=== PATIENT | male | born 1940 | race Caucasian/White ===

== ENCOUNTER → 2017-03-29 | Outpatient (REF) | payer MEDICARE, BC ==
[2017-03-29 12:56] LABS: BASO # 0.1 K/mm3 (0.0-0.2); BASO % 0.7 % (0.0-1.0); EOS # 0.2 K/mm3 (0.0-0.50); EOS % 2.1 % (0.0-3.0); LARGE UNSTAINED CELL # 0.1 K/mm3 (0.0-0.4); LARGE UNSTAINED CELL % 0.9 % (0.0-4.0); LYMPH # 1.2 K/mm3 (1.5-4.5); LYMPH % 11.7 % (24.0-44.0); MEAN CORPUSCULAR HEMOGLOBIN 32.1 pg (27.0-33.0); MEAN CORPUSCULAR HGB CONC 32.8 g/dl (32.0-36.5); MEAN CORPUSCULAR VOLUME 97.8 fl (80.0-96.0); MONO # 0.9 K/mm3 (0.0-0.8); MONO % 8.9 % (0.0-5.0); NEUTROPHILS # 7.2 K/mm3 (1.8-7.7); NEUTROPHILS % 75.7 % (36.0-66.0); PLATELET COUNT, AUTOMATED 164 k/mm3 (150-450); RED CELL DISTRIBUTION WIDTH 14.4 % (11.5-14.5); WHITE BLOOD COUNT 9.5 K/mm3 (4.0-10.0)
[2017-03-29 13:16] LABS: ALBUMIN 3.6 GM/DL (3.2-5.2); ALBUMIN/GLOBULIN RATIO 1.16 (1.00-1.93); BILIRUBIN,TOTAL 0.9 MG/DL (0.2-1.0); CALCIUM LEVEL 8.9 MG/DL (8.8-10.2); CREATININE FOR GFR 1.29 MG/DL (0.70-1.30); FREE T4 1.19 NG/DL (0.76-1.46); GLOMERULAR FILTRATION RATE 57.2 (>42); POTASSIUM SERUM 4.1 MEQ/L (3.5-5.1); TOTAL PROTEIN 6.7 GM/DL (6.4-8.2)
== END ==
LOC: M SFHCADAM 08:25
PROVIDERS: ATTEND Family Medicine
DX: I48.91 Unspecified atrial fibrillation (principal); E66.01 Morbid (severe) obesity due to excess calories

== ENCOUNTER → 2017-04-28 | Outpatient (CLI) | payer MEDICARE, BC ==
--- NOTE | 2017-04-30 18:38 | ECHO ---
DATE OF PROCEDURE: 04/28/2017 REFERRING INDIVIDUAL: Dr. Malika Nunez INDICATION: Heart murmur. HEIGHT: 178 cm WEIGHT: 127.8 kg 2D MEASUREMENTS: Aortic root 3.4 cm Left atrium 4.8 cm Ventricular septum 1.09 cm Posterior wall 1.15 cm Left ventricle diastole 5.2 cm LVOT 2.7 cm Inferior vena cava 1.4 cm DOPPLER MEASUREMENTS: Mild aortic regurgitation. Aortic valve velocity 383 cm/s Aortic valve VTI 91.0 cm Peak aortic valve gradient 39 mmHg Mean aortic valve gradient 37 mmHg Aortic valve area (VTI, continuity equation) 0.68 cm2 Aortic stenosis dimensionless index 0.22 LVOT velocity 73.7 cm/s LVOT/VTI 19.6 cm Very mild mitral regurgitation. No mitral stenosis. Mild tricuspid regurgitation. Estimated right ventricle systolic pressure 42 mmHg assuming a right atrial pressure of 5 mmHg. DESCRIPTION: Rhythm was atrial fibrillation with controlled ventricular response. This is a moderately technically difficult echocardiogram. This is a 2D, M-mode, color flow Doppler and pulsed wave Doppler examination including mitral annular tissue Doppler. No pericardial effusion. CONCLUSIONS: 1. Degenerative, calcific aortic valve disease with severe focal thickening and focal calcific deposits. Moderate reduction in mobility of the aortic cusps. Severe aortic valve stenosis with peak aortic valve velocity of 383 cm/s, mean aortic valve gradient of 37 mmHg, aortic valve area of 0.68 cm2 (continuity equation, VTI) and aortic stenosis dimensionless index of 0.22. Mild aortic regurgitation. 2. Normal left ventricle internal dimensions and wall thickness. Normal regional LV wall motion and wall thickening. Normal LV systolic function. Unable to assess LV diastolic function in the setting of atrial fibrillation. 3. Suggestive of moderate elevation of estimated right ventricle systolic pressure. 4. Moderate left atrial dilatation. 5. Moderate mitral annular calcification. No mitral stenosis. Very mild mitral regurgitation. 6. Moderately technically difficult echocardiogram. ADDITIONAL COMMENTS AND RECOMMENDATIONS: If this patient has symptoms attributable to severe aortic valve stenosis then suggest aortic valve replacement. If patient is asymptomatic with regards to aortic stenosis then recommend close clinical surveillance with a followup echocardiogram Doppler study in one year.
== END ==
LOC: M CARPUL 09:32
PROVIDERS: ATTEND Family Medicine
DX: R01.1 Cardiac murmur, unspecified (principal)

== ENCOUNTER 2017-07-03 17:06 | Emergency (ER) | payer MEDICARE, BC ==
[~2017-07-03] VITALS: Ht 177.8 cm; Wt 130.9 kg
[2017-07-03] MEDS ORDERED: LISI10TA4 PO (17:38)
[2017-07-03] MEDS ORDERED: ALLO100T PO (17:38)
[2017-07-03] MEDS ORDERED: ASPI81TA85 PO (17:38)
[2017-07-03] MEDS ORDERED: SIMV20TA2 PO (17:38)
[2017-07-03] MEDS ORDERED: TORS10TA3 PO (17:38)
[2017-07-03 20:07] VITALS: BP 141/71
== END 2017-07-03 20:17 | disposition home or self-care (01) ==
LOC: EDBD 17:06 → M ED 17:06
DX: T69.9XXA Effect of reduced temperature, unspecified, initial encounter (principal); W01.0XXA Fall on same level from slipping, tripping and stumbling without subsequent striking against object, initial encounter; Y92.9 Unspecified place or not applicable; Y93.9 Activity, unspecified; Y99.9 Unspecified external cause status; I51.9 Heart disease, unspecified; E11.9 Type 2 diabetes mellitus without complications; I10 Essential (primary) hypertension; Z79.82 Long term (current) use of aspirin; Z79.899 Other long term (current) drug therapy

== ENCOUNTER 2017-08-29 10:05 | Emergency (ER) | payer MEDICARE, BC ==
[2017-08-29 11:20] LABS: HEMATOCRIT 45.1 % (42.0-52.0); HEMOGLOBIN 14.8 g/dl (14.0-18.0); MEAN CORPUSCULAR HEMOGLOBIN 29.7 pg (27.0-33.0); MEAN CORPUSCULAR HGB CONC 32.8 g/dl (32.0-36.5); MEAN CORPUSCULAR VOLUME 90.6 fl (80.0-96.0); PLATELET COUNT, AUTOMATED 186 10^3/uL (150-450); RED BLOOD COUNT 4.98 10^6/uL (4.30-6.10)
[2017-08-29 11:45] LABS: ANION GAP 6 MEQ/L (8-16); BLOOD UREA NITROGEN 25 MG/DL (7-18); CALCIUM LEVEL 8.5 MG/DL (8.8-10.2); CARBON DIOXIDE LEVEL 32 MEQ/L (21-32); CHLORIDE LEVEL 101 MEQ/L (98-107); CREATININE FOR GFR 1.46 MG/DL (0.70-1.30); GLOMERULAR FILTRATION RATE 49.6 (>42); GLUCOSE, FASTING 110 MG/DL (70-100); NT-PRO BNP 1512 PG/ML (<450); POTASSIUM SERUM 4.4 MEQ/L (3.5-5.1); SODIUM LEVEL 139 MEQ/L (136-145)
== END 2017-08-29 14:18 | disposition home or self-care (01) ==
LOC: M ED 10:05
DX: S80.01XA Contusion of right knee, initial encounter (principal); S80.02XA Contusion of left knee, initial encounter; I35.0 Nonrheumatic aortic (valve) stenosis; Z91.81 History of falling; W19.XXXA Unspecified fall, initial encounter; Y92.9 Unspecified place or not applicable; Y93.9 Activity, unspecified; I51.7 Cardiomegaly; I48.91 Unspecified atrial fibrillation; I10 Essential (primary) hypertension; R60.9 Edema, unspecified; Z87.891 Personal history of nicotine dependence; Z79.82 Long term (current) use of aspirin; Z79.899 Other long term (current) drug therapy
CPT/HCPCS: 71046

== ENCOUNTER 2017-09-21 14:48 | Inpatient (IN) | payer MEDICARE, BC ==
[2017-09-21] MEDS ORDERED: VARIBAR PUDDING 40% w/v 230ML TUBE As Ordered (14:54)
[2017-09-21] MEDS ORDERED: VARIBAR NECTAR 40% w/v 240ML SUSP BTL As Ordered (14:54)
[2017-09-21] MEDS ORDERED: E-Z-PAQUE 96% w/w SUSP 176GM BTL As Ordered (14:55)
[2017-09-21 15:08] LABS: BASO # 0.1 10^3/uL (0.0-0.2); BASO % 0.4 % (0.0-1.0); EOS # 0.1 10^3/uL (0.0-0.50); EOS % 0.7 % (0.0-3.0); HEMATOCRIT 48.1 % (42.0-52.0); HEMOGLOBIN 16.1 g/dl (14.0-18.0); IMMATURE GRANULOCYTE % 0.3 % (0-3.0); LYMPH % 8.2 % (24.0-44.0); MEAN CORPUSCULAR HGB CONC 33.5 g/dl (32.0-36.5); MEAN CORPUSCULAR VOLUME 89.6 fl (80.0-96.0); MONO # 0.6 10^3/uL (0.0-0.8); MONO % 5.3 % (0.0-5.0); NEUTROPHILS % 85.1 % (36.0-66.0); PLATELET COUNT, AUTOMATED 202 10^3/uL (150-450); RED BLOOD COUNT 5.37 10^6/uL (4.30-6.10); RED CELL DISTRIBUTION WIDTH 12.9 % (11.5-14.5); WHITE BLOOD COUNT 11.8 10^3/uL (4.0-10.0)
[2017-09-21 15:37] LABS: ALBUMIN 3.6 GM/DL (3.2-5.2); ALBUMIN/GLOBULIN RATIO 0.97 (1.00-1.93); ALKALINE PHOSPHATASE 104 U/L (45-117); ALT/SGPT 19 U/L (12-78); ANION GAP 11 MEQ/L (8-16); AST/SGOT 16 U/L (7-37); BILIRUBIN,TOTAL 0.6 MG/DL (0.2-1.0); BLOOD UREA NITROGEN 28 MG/DL (7-18); CALCIUM LEVEL 8.7 MG/DL (8.8-10.2); CARBON DIOXIDE LEVEL 25 MEQ/L (21-32); CHLORIDE LEVEL 102 MEQ/L (98-107); CPK CREATINE PHOSPHOKINASE 68 U/L (39-308); CREATININE FOR GFR 1.59 MG/DL (0.70-1.30); GLOMERULAR FILTRATION RATE 44.9 (>42); GLUCOSE, FASTING 140 MG/DL (70-100); SODIUM LEVEL 138 MEQ/L (136-145); TOTAL PROTEIN 7.3 GM/DL (6.4-8.2); TROPONIN I < 0.02 NG/ML (< 0.10)
[2017-09-21 15:38] LABS: CK-MB VALUE MASS 1.9 NG/ML (0.0-3.6); MB/CK RELATIVE INDEX 2.79 (< OR =4); NT-PRO BNP 1347 PG/ML (<450)
[2017-09-21] MEDS: D5W/0.45% SODIUM CHLORIDE 1,000 ML IV (17:05)
[2017-09-21 21:00] LABS: CK-MB VALUE MASS 1.5 NG/ML (0.0-3.6); CPK CREATINE PHOSPHOKINASE 65 U/L (39-308); TROPONIN I < 0.02 NG/ML (< 0.10)
[2017-09-22 05:02] LABS: HEMATOCRIT 44.3 % (42.0-52.0); HEMOGLOBIN 14.7 g/dl (14.0-18.0); MEAN CORPUSCULAR HEMOGLOBIN 29.9 pg (27.0-33.0); MEAN CORPUSCULAR HGB CONC 33.2 g/dl (32.0-36.5); MEAN CORPUSCULAR VOLUME 90.2 fl (80.0-96.0); PLATELET COUNT, AUTOMATED 175 10^3/uL (150-450); RED BLOOD COUNT 4.91 10^6/uL (4.30-6.10); RED CELL DISTRIBUTION WIDTH 12.9 % (11.5-14.5); WHITE BLOOD COUNT 12.3 10^3/uL (4.0-10.0)
[2017-09-22 05:21] LABS: CPK CREATINE PHOSPHOKINASE 48 U/L (39-308); MB/CK RELATIVE INDEX 2.08 (< OR =4); TROPONIN I < 0.02 NG/ML (< 0.10)
[2017-09-22 05:22] LABS: ALBUMIN 3.1 GM/DL (3.2-5.2); ALBUMIN/GLOBULIN RATIO 0.91 (1.00-1.93); ALKALINE PHOSPHATASE 91 U/L (45-117); ALT/SGPT 16 U/L (12-78); ANION GAP 8 MEQ/L (8-16); AST/SGOT 14 U/L (7-37); BILIRUBIN,TOTAL 0.8 MG/DL (0.2-1.0); BLOOD UREA NITROGEN 27 MG/DL (7-18); CALCIUM LEVEL 8.4 MG/DL (8.8-10.2); CARBON DIOXIDE LEVEL 26 MEQ/L (21-32); CHLORIDE LEVEL 105 MEQ/L (98-107); CREATININE FOR GFR 1.32 MG/DL (0.70-1.30); GLOMERULAR FILTRATION RATE 55.7 (>42); GLUCOSE, FASTING 111 MG/DL (70-100); SODIUM LEVEL 139 MEQ/L (136-145); TOTAL PROTEIN 6.5 GM/DL (6.4-8.2)
[2017-09-22] MEDS: NYSTATIN 100,000 UNITS/GM TOPICAL PWD 15 GM TOP ×2 (09:52→21:00)
[2017-09-22] MEDS: ENOXAPARIN 30 MG/0.3 ML SYR (J1650) SC (10:19)
[2017-09-22] MEDS: ASPIRIN 81 MG ENTERIC TAB PO (10:20)
[2017-09-22] MEDS: FLUOCINONIDE 0.05% CREAM 15 GM TOP ×2 (10:20→21:00)
[2017-09-22] MEDS: ALLOPURINOL 100 MG TAB PO (10:20)
[2017-09-22] MEDS: INFLUENZA VIRUS VACCINE HIGH DOSE 0.5 ML SYRINGE (90662) IM (10:30)
[2017-09-22] MEDS: D5W/0.45% SODIUM CHLORIDE 1,000 ML IV (12:03)
[2017-09-22 13:11] LABS: TROPONIN I < 0.02 NG/ML (< 0.10)
[2017-09-22 13:12] LABS: CK-MB VALUE MASS 1.4 NG/ML (0.0-3.6); CPK CREATINE PHOSPHOKINASE 47 U/L (39-308); MB/CK RELATIVE INDEX 2.97 (< OR =4)
[2017-09-22] MEDS ORDERED: PILL CUTTER/CRUSHER XX (18:15)
[2017-09-22] MEDS: SINEMET 25-100 MG TAB PO (18:32)
[2017-09-22] MEDS: ATORVASTATIN 20 MG TAB PO (21:00)
[2017-09-23 05:35] LABS: HEMATOCRIT 42.5 % (42.0-52.0); HEMOGLOBIN 13.9 g/dl (14.0-18.0); MEAN CORPUSCULAR HEMOGLOBIN 29.5 pg (27.0-33.0); MEAN CORPUSCULAR HGB CONC 32.7 g/dl (32.0-36.5); MEAN CORPUSCULAR VOLUME 90.2 fl (80.0-96.0); PLATELET COUNT, AUTOMATED 161 10^3/uL (150-450); RED BLOOD COUNT 4.71 10^6/uL (4.30-6.10); RED CELL DISTRIBUTION WIDTH 12.9 % (11.5-14.5); WHITE BLOOD COUNT 7.3 10^3/uL (4.0-10.0)
[2017-09-23 05:50] LABS: ALBUMIN 2.9 GM/DL (3.2-5.2); ALBUMIN/GLOBULIN RATIO 0.81 (1.00-1.93); ALKALINE PHOSPHATASE 78 U/L (45-117); ALT/SGPT < 6 U/L (12-78); ANION GAP 7 MEQ/L (8-16); AST/SGOT 11 U/L (7-37); BILIRUBIN,TOTAL 0.8 MG/DL (0.2-1.0); BLOOD UREA NITROGEN 24 MG/DL (7-18); CALCIUM LEVEL 8.2 MG/DL (8.8-10.2); CARBON DIOXIDE LEVEL 27 MEQ/L (21-32); CHLORIDE LEVEL 107 MEQ/L (98-107); GLOMERULAR FILTRATION RATE > 60.0 (>42); GLUCOSE, FASTING 95 MG/DL (70-100); POTASSIUM SERUM 3.7 MEQ/L (3.5-5.1); SODIUM LEVEL 141 MEQ/L (136-145); TOTAL PROTEIN 6.5 GM/DL (6.4-8.2)
[2017-09-23] MEDS: D5W/0.45% SODIUM CHLORIDE 1,000 ML IV (09:15)
[2017-09-23] MEDS: SINEMET 25-100 MG TAB PO (09:28)
[2017-09-23] MEDS: ENOXAPARIN 30 MG/0.3 ML SYR (J1650) SC (09:28)
[2017-09-23] MEDS: ALLOPURINOL 100 MG TAB PO (09:28)
[2017-09-23] MEDS: ASPIRIN 81 MG ENTERIC TAB PO (09:28)
[2017-09-23] MEDS: FLUOCINONIDE 0.05% CREAM 15 GM TOP ×2 (09:29→20:48)
[2017-09-23] MEDS: NYSTATIN 100,000 UNITS/GM TOPICAL PWD 15 GM TOP ×2 (09:29→20:49)
[2017-09-23] MEDS: ROSUVASTATIN 10 MG TAB (CRESTOR) PO (18:17)
[2017-09-24] MEDS: D5W/0.45% SODIUM CHLORIDE 1,000 ML IV ×2 (04:04→14:23)
[2017-09-24 05:56] LABS: HEMATOCRIT 43.1 % (42.0-52.0); HEMOGLOBIN 14.2 g/dl (14.0-18.0); MEAN CORPUSCULAR HEMOGLOBIN 30.1 pg (27.0-33.0); MEAN CORPUSCULAR HGB CONC 32.9 g/dl (32.0-36.5); MEAN CORPUSCULAR VOLUME 91.3 fl (80.0-96.0); PLATELET COUNT, AUTOMATED 165 10^3/uL (150-450); RED BLOOD COUNT 4.72 10^6/uL (4.30-6.10); RED CELL DISTRIBUTION WIDTH 12.8 % (11.5-14.5)
[2017-09-24 06:32] LABS: ALBUMIN 2.9 GM/DL (3.2-5.2); ALBUMIN/GLOBULIN RATIO 0.78 (1.00-1.93); ALKALINE PHOSPHATASE 73 U/L (45-117); ALT/SGPT 7 U/L (12-78); ANION GAP 7 MEQ/L (8-16); AST/SGOT 11 U/L (7-37); BILIRUBIN,TOTAL 0.7 MG/DL (0.2-1.0); BLOOD UREA NITROGEN 19 MG/DL (7-18); CALCIUM LEVEL 8.3 MG/DL (8.8-10.2); CARBON DIOXIDE LEVEL 26 MEQ/L (21-32); CHLORIDE LEVEL 109 MEQ/L (98-107); CREATININE FOR GFR 1.16 MG/DL (0.70-1.30); FREE T4 1.03 NG/DL (0.76-1.46); GLOMERULAR FILTRATION RATE > 60.0 (>42); GLUCOSE, FASTING 97 MG/DL (70-100); MAGNESIUM LEVEL 1.9 MG/DL (1.8-2.4); POTASSIUM SERUM 3.7 MEQ/L (3.5-5.1); SODIUM LEVEL 142 MEQ/L (136-145); TOTAL PROTEIN 6.6 GM/DL (6.4-8.2); URIC ACID 8.1 MG/DL (3.5-7.2)
[2017-09-24] MEDS: ASPIRIN 81 MG CHEW TABLET PO (09:44)
[2017-09-24] MEDS: ROSUVASTATIN 10 MG TAB (CRESTOR) PO (09:44)
[2017-09-24] MEDS: FLUOCINONIDE 0.05% CREAM 15 GM TOP ×2 (09:44→21:23)
[2017-09-24] MEDS: ALLOPURINOL 100 MG TAB PO (09:44)
[2017-09-24] MEDS: SINEMET 25-100 MG TAB PO (09:44)
[2017-09-24] MEDS: NYSTATIN 100,000 UNITS/GM TOPICAL PWD 15 GM TOP ×2 (09:46→21:24)
[2017-09-24] MEDS ORDERED: fentaNYL 100 MCG/2 ML INJECTION (J3010) As Ordered (12:10)
[2017-09-24] MEDS ORDERED: PROPOFOL 200 MG/20 ML VIAL As Ordered (12:10)
[2017-09-24] MEDS ORDERED: LIDOCAINE 2% INJ 100 MG/5 ML SDV (FOR ANES.) As Ordered (12:10)
[2017-09-24] MEDS ORDERED: MIDAZOLAM INJ 2 MG/2 ML VIAL (J2250) As Ordered (12:11)
[2017-09-24] MEDS: ENOXAPARIN 30 MG/0.3 ML SYR (J1650) SC (14:22)
[2017-09-25 03:58] LABS: HEMATOCRIT 42.4 % (42.0-52.0); HEMOGLOBIN 14.1 g/dl (14.0-18.0); MEAN CORPUSCULAR HEMOGLOBIN 30.3 pg (27.0-33.0); MEAN CORPUSCULAR HGB CONC 33.3 g/dl (32.0-36.5); MEAN CORPUSCULAR VOLUME 91.2 fl (80.0-96.0); PLATELET COUNT, AUTOMATED 149 10^3/uL (150-450); RED BLOOD COUNT 4.65 10^6/uL (4.30-6.10); RED CELL DISTRIBUTION WIDTH 12.8 % (11.5-14.5); WHITE BLOOD COUNT 7.8 10^3/uL (4.0-10.0)
[2017-09-25 04:22] LABS: ALBUMIN/GLOBULIN RATIO 0.79 (1.00-1.93); ALKALINE PHOSPHATASE 73 U/L (45-117); ALT/SGPT 9 U/L (12-78); ANION GAP 8 MEQ/L (8-16); AST/SGOT 12 U/L (7-37); BILIRUBIN,TOTAL 0.9 MG/DL (0.2-1.0); BLOOD UREA NITROGEN 19 MG/DL (7-18); CALCIUM LEVEL 8.7 MG/DL (8.8-10.2); CARBON DIOXIDE LEVEL 27 MEQ/L (21-32); CHLORIDE LEVEL 107 MEQ/L (98-107); CREATININE FOR GFR 1.17 MG/DL (0.70-1.30); GLOMERULAR FILTRATION RATE > 60.0 (>42); GLUCOSE, FASTING 87 MG/DL (70-100); POTASSIUM SERUM 3.8 MEQ/L (3.5-5.1); SODIUM LEVEL 142 MEQ/L (136-145); TOTAL PROTEIN 6.8 GM/DL (6.4-8.2)
[2017-09-25] MEDS: SINEMET 25-100 MG TAB PO (08:32)
[2017-09-25] MEDS: ALLOPURINOL 100 MG TAB PO (08:32)
[2017-09-25] MEDS: ASPIRIN 81 MG CHEW TABLET PO (08:32)
[2017-09-25] MEDS: ROSUVASTATIN 10 MG TAB (CRESTOR) PO (08:33)
[2017-09-25] MEDS: ENOXAPARIN 30 MG/0.3 ML SYR (J1650) SC (08:33)
[2017-09-25] MEDS: FLUOCINONIDE 0.05% CREAM 15 GM TOP ×2 (08:34→20:33)
[2017-09-25] MEDS: NYSTATIN 100,000 UNITS/GM TOPICAL PWD 15 GM TOP ×2 (08:34→20:33)
[2017-09-25] MEDS: D5W/0.45% SODIUM CHLORIDE 1,000 ML IV (10:05)
[2017-09-26 04:07] LABS: HEMOGLOBIN 13.9 g/dl (14.0-18.0); MEAN CORPUSCULAR HEMOGLOBIN 29.4 pg (27.0-33.0); MEAN CORPUSCULAR HGB CONC 32.3 g/dl (32.0-36.5); MEAN CORPUSCULAR VOLUME 91.1 fl (80.0-96.0); PLATELET COUNT, AUTOMATED 157 10^3/uL (150-450); RED BLOOD COUNT 4.72 10^6/uL (4.30-6.10); RED CELL DISTRIBUTION WIDTH 12.9 % (11.5-14.5); WHITE BLOOD COUNT 7.5 10^3/uL (4.0-10.0)
[2017-09-26 04:32] LABS: ALBUMIN 2.8 GM/DL (3.2-5.2); ALBUMIN/GLOBULIN RATIO 0.74 (1.00-1.93); ALKALINE PHOSPHATASE 78 U/L (45-117); ALT/SGPT 8 U/L (12-78); ANION GAP 8 MEQ/L (8-16); AST/SGOT 12 U/L (7-37); BILIRUBIN,TOTAL 0.8 MG/DL (0.2-1.0); BLOOD UREA NITROGEN 18 MG/DL (7-18); CALCIUM LEVEL 8.7 MG/DL (8.8-10.2); CARBON DIOXIDE LEVEL 26 MEQ/L (21-32); CHLORIDE LEVEL 109 MEQ/L (98-107); CREATININE FOR GFR 1.12 MG/DL (0.70-1.30); GLOMERULAR FILTRATION RATE > 60.0 (>42); GLUCOSE, FASTING 114 MG/DL (70-100); POTASSIUM SERUM 3.6 MEQ/L (3.5-5.1); SODIUM LEVEL 143 MEQ/L (136-145); TOTAL PROTEIN 6.6 GM/DL (6.4-8.2)
[2017-09-26] MEDS: ROSUVASTATIN 10 MG TAB (CRESTOR) PO (08:29)
[2017-09-26] MEDS: ASPIRIN 81 MG CHEW TABLET PO (08:29)
[2017-09-26] MEDS: ALLOPURINOL 100 MG TAB PO (08:29)
[2017-09-26] MEDS: SINEMET 25-100 MG TAB PO (08:29)
[2017-09-26] MEDS: ENOXAPARIN 30 MG/0.3 ML SYR (J1650) SC (08:30)
[2017-09-26] MEDS: FLUOCINONIDE 0.05% CREAM 15 GM TOP ×2 (08:30→21:06)
[2017-09-26] MEDS: NYSTATIN 100,000 UNITS/GM TOPICAL PWD 15 GM TOP ×2 (08:31→21:07)
[2017-09-26] MEDS: POTASSIUM CHLORIDE 10% LIQ 20 MEQ/15 ML UDC PO (12:59)
[2017-09-26 13:56] LABS: MAGNESIUM LEVEL 2.1 MG/DL (1.8-2.4)
[2017-09-26] MEDS: ACETAMINOPHEN 500 MG TAB PO (21:07)
[2017-09-27 04:13] LABS: HEMATOCRIT 43.3 % (42.0-52.0); HEMOGLOBIN 13.9 g/dl (14.0-18.0); MEAN CORPUSCULAR HEMOGLOBIN 29.4 pg (27.0-33.0); MEAN CORPUSCULAR HGB CONC 32.1 g/dl (32.0-36.5); MEAN CORPUSCULAR VOLUME 91.7 fl (80.0-96.0); PLATELET COUNT, AUTOMATED 164 10^3/uL (150-450); RED BLOOD COUNT 4.72 10^6/uL (4.30-6.10); RED CELL DISTRIBUTION WIDTH 13.1 % (11.5-14.5); WHITE BLOOD COUNT 10.1 10^3/uL (4.0-10.0)
[2017-09-27 04:40] LABS: ALBUMIN 2.7 GM/DL (3.2-5.2); ALBUMIN/GLOBULIN RATIO 0.69 (1.00-1.93); ALKALINE PHOSPHATASE 73 U/L (45-117); ALT/SGPT 14 U/L (12-78); ANION GAP 8 MEQ/L (8-16); AST/SGOT 15 U/L (7-37); BILIRUBIN,TOTAL 0.7 MG/DL (0.2-1.0); BLOOD UREA NITROGEN 20 MG/DL (7-18); CALCIUM LEVEL 8.7 MG/DL (8.8-10.2); CARBON DIOXIDE LEVEL 27 MEQ/L (21-32); CHLORIDE LEVEL 110 MEQ/L (98-107); CREATININE FOR GFR 1.14 MG/DL (0.70-1.30); GLOMERULAR FILTRATION RATE > 60.0 (>42); GLUCOSE, FASTING 125 MG/DL (70-100); POTASSIUM SERUM 3.7 MEQ/L (3.5-5.1); SODIUM LEVEL 145 MEQ/L (136-145); TOTAL PROTEIN 6.6 GM/DL (6.4-8.2)
[2017-09-27] MEDS: ENOXAPARIN 30 MG/0.3 ML SYR (J1650) SC (09:42)
[2017-09-27] MEDS: ALLOPURINOL 100 MG TAB PO (09:43)
[2017-09-27] MEDS: SINEMET 25-100 MG TAB PO (09:43)
[2017-09-27] MEDS: ASPIRIN 81 MG CHEW TABLET PO (09:43)
[2017-09-27] MEDS: ROSUVASTATIN 10 MG TAB (CRESTOR) PO (09:43)
[2017-09-27] MEDS: POTASSIUM CHLORIDE 10% LIQ 20 MEQ/15 ML UDC PO (09:43)
[2017-09-27] MEDS: FLUOCINONIDE 0.05% CREAM 15 GM TOP ×2 (09:44→20:18)
[2017-09-27] MEDS: NYSTATIN 100,000 UNITS/GM TOPICAL PWD 15 GM TOP ×2 (09:44→20:18)
[2017-09-28 05:20] LABS: HEMATOCRIT 42.3 % (42.0-52.0); HEMOGLOBIN 13.7 g/dl (14.0-18.0); MEAN CORPUSCULAR HEMOGLOBIN 30.2 pg (27.0-33.0); MEAN CORPUSCULAR HGB CONC 32.4 g/dl (32.0-36.5); MEAN CORPUSCULAR VOLUME 93.2 fl (80.0-96.0); PLATELET COUNT, AUTOMATED 167 10^3/uL (150-450); RED BLOOD COUNT 4.54 10^6/uL (4.30-6.10); RED CELL DISTRIBUTION WIDTH 13.2 % (11.5-14.5); WHITE BLOOD COUNT 9.2 10^3/uL (4.0-10.0)
[2017-09-28 05:41] LABS: ALBUMIN 2.6 GM/DL (3.2-5.2); ALBUMIN/GLOBULIN RATIO 0.62 (1.00-1.93); ALKALINE PHOSPHATASE 72 U/L (45-117); ALT/SGPT 20 U/L (12-78); ANION GAP 6 MEQ/L (8-16); AST/SGOT 32 U/L (7-37); BILIRUBIN,TOTAL 0.6 MG/DL (0.2-1.0); BLOOD UREA NITROGEN 22 MG/DL (7-18); CALCIUM LEVEL 8.5 MG/DL (8.8-10.2); CARBON DIOXIDE LEVEL 28 MEQ/L (21-32); CHLORIDE LEVEL 110 MEQ/L (98-107); CREATININE FOR GFR 1.15 MG/DL (0.70-1.30); GLOMERULAR FILTRATION RATE > 60.0 (>42); GLUCOSE, FASTING 133 MG/DL (70-100); SODIUM LEVEL 144 MEQ/L (136-145); TOTAL PROTEIN 6.8 GM/DL (6.4-8.2)
[2017-09-28 05:43] LABS: POTASSIUM SERUM 4.5 MEQ/L (3.5-5.1)
[2017-09-28] MEDS: ENOXAPARIN 30 MG/0.3 ML SYR (J1650) SC (08:57)
[2017-09-28] MEDS: POTASSIUM CHLORIDE 10% LIQ 20 MEQ/15 ML UDC PO (08:57)
[2017-09-28] MEDS: ROSUVASTATIN 10 MG TAB (CRESTOR) PO (08:58)
[2017-09-28] MEDS: NYSTATIN 100,000 UNITS/GM TOPICAL PWD 15 GM TOP ×2 (08:58→21:06)
[2017-09-28] MEDS: SINEMET 25-100 MG TAB PO (08:58)
[2017-09-28] MEDS: ALLOPURINOL 100 MG TAB PO (08:58)
[2017-09-28] MEDS: ASPIRIN 81 MG CHEW TABLET PO (08:58)
[2017-09-28] MEDS: FLUOCINONIDE 0.05% CREAM 15 GM TOP ×2 (09:03→21:06)
[2017-09-29 05:46] LABS: BASO # 0.1 10^3/uL (0.0-0.2); BASO % 0.6 % (0.0-1.0); EOS # 0.2 10^3/uL (0.0-0.50); HEMATOCRIT 42.3 % (42.0-52.0); HEMOGLOBIN 13.6 g/dl (14.0-18.0); IMMATURE GRANULOCYTE % 0.4 % (0-3.0); LYMPH # 1.2 10^3/uL (1.5-4.5); LYMPH % 15.7 % (24.0-44.0); MEAN CORPUSCULAR HEMOGLOBIN 29.9 pg (27.0-33.0); MEAN CORPUSCULAR HGB CONC 32.2 g/dl (32.0-36.5); MONO # 0.8 10^3/uL (0.0-0.8); NEUTROPHILS # 5.4 10^3/uL (1.8-7.7); NEUTROPHILS % 70.3 % (36.0-66.0); PLATELET COUNT, AUTOMATED 174 10^3/uL (150-450); RED BLOOD COUNT 4.55 10^6/uL (4.30-6.10); RED CELL DISTRIBUTION WIDTH 13.2 % (11.5-14.5); WHITE BLOOD COUNT 7.7 10^3/uL (4.0-10.0)
[2017-09-29] MEDS: FLUOCINONIDE 0.05% CREAM 15 GM TOP (09:10)
[2017-09-29] MEDS: NYSTATIN 100,000 UNITS/GM TOPICAL PWD 15 GM TOP (09:11)
[2017-09-29] MEDS: ENOXAPARIN 30 MG/0.3 ML SYR (J1650) SC (09:11)
[2017-09-29] MEDS: ALLOPURINOL 100 MG TAB PO (09:12)
[2017-09-29] MEDS: ASPIRIN 81 MG CHEW TABLET PO (09:12)
[2017-09-29] MEDS: ROSUVASTATIN 10 MG TAB (CRESTOR) PO (09:12)
[2017-09-29] MEDS: SINEMET 25-100 MG TAB PO (09:13)
[2017-09-29] MEDS: POTASSIUM CHLORIDE 10% LIQ 20 MEQ/15 ML UDC PO (09:30)
[2017-09-29 11:50] LABS: BEDSIDE GLUCOSE 121 MG/DL (83-110)
== END 2017-09-29 13:30 | DRG 310 ==
LOC: M PCU 14:48
PROC: 0DH64UZ Insertion of Feeding Device into Stomach, Percutaneous Endoscopic Approach (ICD-10-PCS; principal; 2017-09-24 11:30)
DX: I48.2 Chronic atrial fibrillation (principal); G20 Parkinson's disease; I25.10 Atherosclerotic heart disease of native coronary artery without angina pectoris; I25.2 Old myocardial infarction; I35.0 Nonrheumatic aortic (valve) stenosis; I12.9 Hypertensive chronic kidney disease with stage 1 through stage 4 chronic kidney disease, or unspecified chronic kidney disease; E78.5 Hyperlipidemia, unspecified; M10.9 Gout, unspecified; E86.0 Dehydration; R13.12 Dysphagia, oropharyngeal phase; T17.290A Other foreign object in pharynx causing asphyxiation, initial encounter; I47.2 Ventricular tachycardia; I87.2 Venous insufficiency (chronic) (peripheral); N18.3 Chronic kidney disease, stage 3 (moderate); E66.9 Obesity, unspecified; M19.90 Unspecified osteoarthritis, unspecified site; Z79.82 Long term (current) use of aspirin; Z79.899 Other long term (current) drug therapy; I49.5 Sick sinus syndrome; Y84.8 Other medical procedures as the cause of abnormal reaction of the patient, or of later complication, without mention of misadventure at the time of the procedure

== ENCOUNTER → 2017-11-01 | Outpatient (REF) | LOC: SKLAB3 07:00 | DX: E83.42 Hypomagnesemia (principal) ==

== ENCOUNTER → 2017-11-05 | Outpatient (CLI) | payer MEDICARE, BC, MEDICAID | LOC: M ST 13:22 | DX: R13.12 Dysphagia, oropharyngeal phase (principal) | CPT/HCPCS: 74230 ==

== ENCOUNTER → 2017-12-27 | Outpatient (REF) ==
[2017-12-27 09:35] LABS: HEMOGLOBIN 12.4 g/dl (13.5-17.5); MEAN CORPUSCULAR HEMOGLOBIN 31.3 pg (27.0-33.0); MEAN CORPUSCULAR HGB CONC 33.5 g/dl (32.0-36.5); MEAN CORPUSCULAR VOLUME 93.4 fl (80.0-96.0); PLATELET COUNT, AUTOMATED 148 10^3/uL (150-450); RED BLOOD COUNT 3.96 10^6/uL (4.30-6.10); RED CELL DISTRIBUTION WIDTH 13.8 % (11.5-14.5); WHITE BLOOD COUNT 7.2 10^3/uL (4.0-10.0)
[2017-12-27 10:29] LABS: ALBUMIN 2.9 GM/DL (3.2-5.2); ALBUMIN/GLOBULIN RATIO 0.71 (1.00-1.93); ALKALINE PHOSPHATASE 87 U/L (45-117); ALT/SGPT 13 U/L (12-78); ANION GAP 8 MEQ/L (8-16); AST/SGOT 16 U/L (7-37); BILIRUBIN,TOTAL 0.7 MG/DL (0.2-1.0); BLOOD UREA NITROGEN 17 MG/DL (7-18); CALCIUM LEVEL 8.5 MG/DL (8.8-10.2); CARBON DIOXIDE LEVEL 27 MEQ/L (21-32); CHLORIDE LEVEL 105 MEQ/L (98-107); CHOLESTEROL LEVEL 76 MG/DL (<200); CHOLESTEROL RISK RATIO 2.054 (<5); CREATININE FOR GFR 1.15 MG/DL (0.70-1.30); GLOMERULAR FILTRATION RATE > 60.0 (>42); GLUCOSE, FASTING 127 MG/DL (70-100); HDL CHOLESTEROL 37 MG/DL (>40); LDL CHOLESTEROL 28.8 MG/DL (<100); MAGNESIUM LEVEL 1.9 MG/DL (1.8-2.4); NON-HDL-C 39 MG/DL; POTASSIUM SERUM 3.6 MEQ/L (3.5-5.1); SODIUM LEVEL 140 MEQ/L (136-145); TRIGLYCERIDES LEVEL 51 MG/DL (<150); URIC ACID 4.5 MG/DL (3.5-7.2)
== END ==
LOC: SKLAB3 06:53
DX: E78.5 Hyperlipidemia, unspecified (principal); I10 Essential (primary) hypertension

== ENCOUNTER → 2017-12-28 | Outpatient (REF) ==
[2017-12-28 08:29] LABS: BASO # 0.1 10^3/uL (0.0-0.2); BASO % 0.6 % (0.0-1.0); EOS % 0.3 % (0.0-3.0); HEMATOCRIT 39.9 % (42.0-52.0); HEMOGLOBIN 13.3 g/dl (13.5-17.5); IMMATURE GRANULOCYTE % 0.3 % (0-3.0); LYMPH # 0.7 10^3/uL (1.5-4.5); LYMPH % 6.8 % (24.0-44.0); MEAN CORPUSCULAR HEMOGLOBIN 30.9 pg (27.0-33.0); MEAN CORPUSCULAR HGB CONC 33.3 g/dl (32.0-36.5); MEAN CORPUSCULAR VOLUME 92.8 fl (80.0-96.0); MONO # 0.8 10^3/uL (0.0-0.8); MONO % 7.2 % (0.0-5.0); NEUTROPHILS # 8.8 10^3/uL (1.8-7.7); NEUTROPHILS % 84.8 % (36.0-66.0); PLATELET COUNT, AUTOMATED 160 10^3/uL (150-450); RED CELL DISTRIBUTION WIDTH 13.8 % (11.5-14.5); WHITE BLOOD COUNT 10.4 10^3/uL (4.0-10.0)
[2017-12-28 09:00] LABS: ALBUMIN 3.3 GM/DL (3.2-5.2); ALBUMIN/GLOBULIN RATIO 0.87 (1.00-1.93); ALKALINE PHOSPHATASE 93 U/L (45-117); ALT/SGPT 17 U/L (12-78); ANION GAP 11 MEQ/L (8-16); AST/SGOT 20 U/L (7-37); BILIRUBIN,TOTAL 0.8 MG/DL (0.2-1.0); BLOOD UREA NITROGEN 19 MG/DL (7-18); CALCIUM LEVEL 8.6 MG/DL (8.8-10.2); CARBON DIOXIDE LEVEL 26 MEQ/L (21-32); CHLORIDE LEVEL 106 MEQ/L (98-107); CREATININE FOR GFR 1.23 MG/DL (0.70-1.30); GLOMERULAR FILTRATION RATE > 60.0 (>42); GLUCOSE, FASTING 123 MG/DL (70-100); SODIUM LEVEL 143 MEQ/L (136-145); TOTAL PROTEIN 7.1 GM/DL (6.4-8.2)
[2017-12-28 09:33] LABS: APPEARANCE, URINE CLEAR (CLEAR); BACTERIA, URINE AUTO NEGATIVE (NEGATIVE); BILIRUBIN, URINE AUTO NEGATIVE (NEGATIVE); BLOOD, URINE BLOOD NEGATIVE (NEGATIVE); COLOR, URINE YELLOW (YELLOW); GLUCOSE, URINE (UA) AUTO NEGATIVE (NEGATIVE); KETONE, URINE AUTO NEGATIVE (NEGATIVE); LEUKOCYTE ESTERASE, URINE AUTO NEGATIVE (NEGATIVE); NITRITE, URINE AUTO NEGATIVE (NEGATIVE); PROTEIN, URINE AUTO NEGATIVE (NEGATIVE); RBC, URINE AUTO 4 /HPF (0-3); SPECIFIC GRAVITY URINE AUTO 1.005 (1.002-1.035); SQUAMOUS EPITHELIAL CELL UR AU 0 /HPF (0-6); UROBILINOGEN, URINE AUTO 0.2 mg/dL (0.0-2.0); WBC, URINE AUTO 1 /HPF (0-3)
== END ==
LOC: SKLAB3 07:36
DX: R50.9 Fever, unspecified (principal); R41.82 Altered mental status, unspecified; W19.XXXD Unspecified fall, subsequent encounter

== ENCOUNTER → 2017-12-28 | Outpatient (CLI) | payer MEDICARE, BC, MEDICAID | LOC: M RAD 11:40 | DX: R41.0 Disorientation, unspecified (principal); R47.89 Other speech disturbances; I67.2 Cerebral atherosclerosis | CPT/HCPCS: 70450 ==

== ENCOUNTER → 2017-12-31 | Outpatient (CLI) | payer MEDICARE, BC, MEDICAID | LOC: M PLARAD 14:51 | DX: I63.9 Cerebral infarction, unspecified (principal) | CPT/HCPCS: 70551 ==

== ENCOUNTER → 2018-01-14 | Outpatient (CLI) | payer MEDICARE, BC, MEDICAID ==
[~2018-01-14] MED LIST: E-Z-PAQUE 96% w/w SUSP 176GM BTL As Ordered; VARIBAR NECTAR 40% w/v 240ML SUSP BTL As Ordered; VARIBAR PUDDING 40% w/v 230ML TUBE As Ordered
== END ==
LOC: M RAD 11:07
DX: R13.12 Dysphagia, oropharyngeal phase (principal); Z93.1 Gastrostomy status
CPT/HCPCS: 74230

== ENCOUNTER → 2018-03-28 | Outpatient (REF) | payer MEDICARE, BC, MEDICAID ==
[2018-03-28 10:38] LABS: HEMOGLOBIN 12.2 g/dl (13.5-17.5); MEAN CORPUSCULAR HEMOGLOBIN 30.9 pg (27.0-33.0); MEAN CORPUSCULAR HGB CONC 32.1 g/dl (32.0-36.5); MEAN CORPUSCULAR VOLUME 96.2 fl (80.0-96.0); PLATELET COUNT, AUTOMATED 157 10^3/uL (150-450); RED BLOOD COUNT 3.95 10^6/uL (4.30-6.10); RED CELL DISTRIBUTION WIDTH 14.1 % (11.5-14.5); WHITE BLOOD COUNT 7.2 10^3/uL (4.0-10.0)
[2018-03-28 11:13] LABS: ALBUMIN/GLOBULIN RATIO 0.88 (1.00-1.93); ALKALINE PHOSPHATASE 69 U/L (45-117); ALT/SGPT 13 U/L (12-78); ANION GAP 9 MEQ/L (8-16); AST/SGOT 17 U/L (7-37); BILIRUBIN,TOTAL 0.7 MG/DL (0.2-1.0); BLOOD UREA NITROGEN 21 MG/DL (7-18); CALCIUM LEVEL 7.9 MG/DL (8.8-10.2); CARBON DIOXIDE LEVEL 29 MEQ/L (21-32); CHLORIDE LEVEL 107 MEQ/L (98-107); CREATININE FOR GFR 1.04 MG/DL (0.70-1.30); GLOMERULAR FILTRATION RATE > 60.0 (>35); GLUCOSE, FASTING 97 MG/DL (70-100); MAGNESIUM LEVEL 1.8 MG/DL (1.8-2.4); POTASSIUM SERUM 3.8 MEQ/L (3.5-5.1); SODIUM LEVEL 145 MEQ/L (136-145); TOTAL PROTEIN 6.4 GM/DL (6.4-8.2); URIC ACID 3.9 MG/DL (3.5-7.2)
== END ==
LOC: SKLAB3 11:14
DX: G20 Parkinson's disease (principal); D64.9 Anemia, unspecified
CPT/HCPCS: 83735

== ENCOUNTER 2018-05-12 16:03 | Inpatient (IN) | payer MEDICARE, BC, MEDICAID ==
[2018-05-12 16:43] LABS: BASO # 0.1 10^3/uL (0.0-0.2); BASO % 0.6 % (0.0-1.0); EOS # 0.4 10^3/uL (0.0-0.50); EOS % 4.4 % (0.0-3.0); HEMATOCRIT 45.1 % (42.0-52.0); IMMATURE GRANULOCYTE % 0.2 % (0-3.0); LYMPH # 1.1 10^3/uL (1.5-4.5); MEAN CORPUSCULAR HEMOGLOBIN 31.5 pg (27.0-33.0); MEAN CORPUSCULAR HGB CONC 33.3 g/dl (32.0-36.5); MEAN CORPUSCULAR VOLUME 94.7 fl (80.0-96.0); MONO # 0.6 10^3/uL (0.0-0.8); MONO % 7.2 % (0.0-5.0); NEUTROPHILS # 6.2 10^3/uL (1.8-7.7); NEUTROPHILS % 74.6 % (36.0-66.0); PLATELET COUNT, AUTOMATED 153 10^3/uL (150-450); RED BLOOD COUNT 4.76 10^6/uL (4.30-6.10); WHITE BLOOD COUNT 8.4 10^3/uL (4.0-10.0)
[2018-05-12 16:56] LABS: INR 1.15; PARTIAL THROMBOPLASTIN TIME 34.6 SECONDS (25.4-37.6); PROTHROMBIN TIME 14.8 SECONDS (12.1-14.4)
[2018-05-12 17:09] LABS: LACTIC ACID SEPSIS PROTOCOL 1.8 MMOL/L (0.4-2.0)
[2018-05-12 17:12] LABS: ANION GAP 8 MEQ/L (8-16); BLOOD UREA NITROGEN 16 MG/DL (7-18); CALCIUM LEVEL 9.1 MG/DL (8.8-10.2); CARBON DIOXIDE LEVEL 29 MEQ/L (21-32); CHLORIDE LEVEL 105 MEQ/L (98-107); CPK CREATINE PHOSPHOKINASE 61 U/L (39-308); CREATININE FOR GFR 1.17 MG/DL (0.70-1.30); GLOMERULAR FILTRATION RATE > 60.0 (>35); GLUCOSE, FASTING 100 MG/DL (70-100); POTASSIUM SERUM 4.3 MEQ/L (3.5-5.1); SODIUM LEVEL 142 MEQ/L (136-145); TROPONIN I < 0.02 NG/ML (< 0.10)
[2018-05-12] MEDS: LABETALOL HCL 100 MG/20 ML VIAL IV ×2 (17:28→18:35)
[2018-05-12] MEDS: LORazepam 2 MG/ML VIAL (J2060) IV ×2 (19:55→22:15)
[2018-05-13] MEDS: NS 1,000 ML IV ×2 (00:40→10:19)
[2018-05-13] MEDS: HEPARIN SOD (PORCINE) 5000 UNITS/ML VIAL SC ×4 (00:41→21:42)
[2018-05-13 04:07] LABS: KETONE, URINE AUTO RFX NEGATIVE (NEGATIVE); LEUKOCYTE ESTERASE UR AUTO RFX NEGATIVE (NEGATIVE); MUCUS, URINE RFX SMALL (NEGATIVE); NITRITE, URINE AUTO RFX NEGATIVE (NEGATIVE); RBC, URINE AUTO RFX 24 /HPF (0-3); SPECIFIC GRAVITY UR AUTO RFX 1.013 (1.002-1.035); SQUAM EPITHELIAL CELL UR AURFX 0 /HPF (0-6); WBC, URINE AUTO RFX 1 /HPF (0-3)
[2018-05-13 04:55] LABS: HEMOGLOBIN 14.1 g/dl (13.5-17.5); MEAN CORPUSCULAR HEMOGLOBIN 31.3 pg (27.0-33.0); MEAN CORPUSCULAR HGB CONC 32.8 g/dl (32.0-36.5); MEAN CORPUSCULAR VOLUME 95.6 fl (80.0-96.0); PLATELET COUNT, AUTOMATED 128 10^3/uL (150-450); RED CELL DISTRIBUTION WIDTH 13.8 % (11.5-14.5)
[2018-05-13 05:18] LABS: ANION GAP 9 MEQ/L (8-16); BLOOD UREA NITROGEN 15 MG/DL (7-18); CALCIUM LEVEL 8.6 MG/DL (8.8-10.2); CARBON DIOXIDE LEVEL 26 MEQ/L (21-32); CHLORIDE LEVEL 106 MEQ/L (98-107); CREATININE FOR GFR 1.04 MG/DL (0.70-1.30); GLOMERULAR FILTRATION RATE > 60.0 (>35); GLUCOSE, FASTING 104 MG/DL (70-100); POTASSIUM SERUM 3.8 MEQ/L (3.5-5.1); SODIUM LEVEL 141 MEQ/L (136-145)
[2018-05-13 14:55] LABS: AMMONIA 30 uMOL/L (<32)
[2018-05-13] MEDS ORDERED: ACETAMINOPHEN TAB 650MG DOSE (2X325MG) PO (16:30)
[2018-05-13] MEDS ORDERED: ATROPINE SULFATE 1% OP SOLN 2 ML BTL SL (16:30)
[2018-05-13] MEDS ORDERED: MOM 30ML SUSPENSION UDC PO (16:30)
[2018-05-13] MEDS: KCL 20MEQ IN D5/0.45NS 1000ML 1,000 ML IV (17:30)
[2018-05-13] MEDS: ROSUVASTATIN 10 MG TAB (CRESTOR) PO (17:31)
[2018-05-13] MEDS: SINEMET 25-100 MG TAB PO ×2 (17:31→21:41)
[2018-05-13] MEDS: amLODIPine 5 MG TAB PO (17:31)
[2018-05-13] MEDS: GABAPENTIN 300 MG CAP PO (21:41)
[2018-05-13] MEDS: FAMOTIDINE 20 MG TAB PO (21:42)
[2018-05-14] MEDS: KCL 20MEQ IN D5/0.45NS 1000ML 1,000 ML IV ×3 (02:48→21:52)
[2018-05-14 05:52] LABS: HEMATOCRIT 38.3 % (42.0-52.0); HEMOGLOBIN 12.6 g/dl (13.5-17.5); MEAN CORPUSCULAR HEMOGLOBIN 31.3 pg (27.0-33.0); MEAN CORPUSCULAR HGB CONC 32.9 g/dl (32.0-36.5); PLATELET COUNT, AUTOMATED 122 10^3/uL (150-450); RED BLOOD COUNT 4.03 10^6/uL (4.30-6.10); WHITE BLOOD COUNT 6.6 10^3/uL (4.0-10.0)
[2018-05-14 06:24] LABS: ANION GAP 6 MEQ/L (8-16); BLOOD UREA NITROGEN 17 MG/DL (7-18); CALCIUM LEVEL 8.2 MG/DL (8.8-10.2); CARBON DIOXIDE LEVEL 26 MEQ/L (21-32); CHLORIDE LEVEL 108 MEQ/L (98-107); CREATININE FOR GFR 0.85 MG/DL (0.70-1.30); GLOMERULAR FILTRATION RATE > 60.0 (>35); GLUCOSE, FASTING 103 MG/DL (70-100); POTASSIUM SERUM 3.9 MEQ/L (3.5-5.1); SODIUM LEVEL 140 MEQ/L (136-145)
[2018-05-14] MEDS: HEPARIN SOD (PORCINE) 5000 UNITS/ML VIAL SC ×3 (06:46→21:10)
[2018-05-14] MEDS: SINEMET 25-100 MG TAB PO ×4 (09:49→21:10)
[2018-05-14] MEDS: CLOPIDOGREL 75 MG TAB PO (09:49)
[2018-05-14] MEDS: ROSUVASTATIN 10 MG TAB (CRESTOR) PO (09:49)
[2018-05-14] MEDS: MULTIVITAMINS/MINERALS THERAP 1 TAB PO (09:50)
[2018-05-14] MEDS: amLODIPine 5 MG TAB PO (09:50)
[2018-05-14] MEDS: ALLOPURINOL 100 MG TAB PO (09:50)
[2018-05-14] MEDS: FAMOTIDINE 20 MG TAB PO (21:10)
[2018-05-14] MEDS: GABAPENTIN 300 MG CAP PO (21:10)
[2018-05-15 05:05] LABS: HEMATOCRIT 40.3 % (42.0-52.0); MEAN CORPUSCULAR HEMOGLOBIN 31.4 pg (27.0-33.0); MEAN CORPUSCULAR HGB CONC 32.3 g/dl (32.0-36.5); MEAN CORPUSCULAR VOLUME 97.3 fl (80.0-96.0); PLATELET COUNT, AUTOMATED 127 10^3/uL (150-450); RED BLOOD COUNT 4.14 10^6/uL (4.30-6.10); WHITE BLOOD COUNT 6.4 10^3/uL (4.0-10.0)
[2018-05-15] MEDS: HEPARIN SOD (PORCINE) 5000 UNITS/ML VIAL SC ×3 (05:17→21:09)
[2018-05-15 05:27] LABS: ANION GAP 5 MEQ/L (8-16); BLOOD UREA NITROGEN 13 MG/DL (7-18); CALCIUM LEVEL 8.2 MG/DL (8.8-10.2); CARBON DIOXIDE LEVEL 28 MEQ/L (21-32); CHLORIDE LEVEL 108 MEQ/L (98-107); CREATININE FOR GFR 1.01 MG/DL (0.70-1.30); GLOMERULAR FILTRATION RATE > 60.0 (>35); GLUCOSE, FASTING 100 MG/DL (70-100); POTASSIUM SERUM 4.3 MEQ/L (3.5-5.1); SODIUM LEVEL 141 MEQ/L (136-145)
[2018-05-15] MEDS: KCL 20MEQ IN D5/0.45NS 1000ML 1,000 ML IV (06:55)
[2018-05-15] MEDS: MULTIVITAMINS/MINERALS THERAP 1 TAB PO (08:06)
[2018-05-15] MEDS: SINEMET 25-100 MG TAB PO ×4 (08:06→21:09)
[2018-05-15] MEDS: ROSUVASTATIN 10 MG TAB (CRESTOR) PO (08:06)
[2018-05-15] MEDS: ALLOPURINOL 100 MG TAB PO (08:06)
[2018-05-15] MEDS: CLOPIDOGREL 75 MG TAB PO (08:06)
[2018-05-15] MEDS: amLODIPine 5 MG TAB PO (08:06)
[2018-05-15] MEDS ORDERED: SLF 3 ML SYR IV (09:45)
[2018-05-15] MEDS: SLF 3 ML SYR IV ×2 (13:46→21:10)
[2018-05-15] MEDS: FAMOTIDINE 20 MG TAB PO (21:09)
[2018-05-15] MEDS: GABAPENTIN 300 MG CAP PO (21:09)
[2018-05-16] MEDS: SLF 3 ML SYR IV (04:56)
[2018-05-16] MEDS: HEPARIN SOD (PORCINE) 5000 UNITS/ML VIAL SC (05:01)
[2018-05-16 05:20] LABS: HEMATOCRIT 40.4 % (42.0-52.0); HEMOGLOBIN 13.2 g/dl (13.5-17.5); MEAN CORPUSCULAR HEMOGLOBIN 31.1 pg (27.0-33.0); MEAN CORPUSCULAR HGB CONC 32.7 g/dl (32.0-36.5); MEAN CORPUSCULAR VOLUME 95.1 fl (80.0-96.0); PLATELET COUNT, AUTOMATED 141 10^3/uL (150-450); RED BLOOD COUNT 4.25 10^6/uL (4.30-6.10); RED CELL DISTRIBUTION WIDTH 13.8 % (11.5-14.5); WHITE BLOOD COUNT 6.9 10^3/uL (4.0-10.0)
[2018-05-16 05:52] LABS: ANION GAP 5 MEQ/L (8-16); BLOOD UREA NITROGEN 11 MG/DL (7-18); CALCIUM LEVEL 8.7 MG/DL (8.8-10.2); CARBON DIOXIDE LEVEL 28 MEQ/L (21-32); CHLORIDE LEVEL 107 MEQ/L (98-107); CREATININE FOR GFR 0.89 MG/DL (0.70-1.30); GLOMERULAR FILTRATION RATE > 60.0 (>35); GLUCOSE, FASTING 85 MG/DL (70-100); SODIUM LEVEL 140 MEQ/L (136-145)
[2018-05-16] MEDS: ALLOPURINOL 100 MG TAB PO (08:18)
[2018-05-16] MEDS: SINEMET 25-100 MG TAB PO (08:18)
[2018-05-16] MEDS: MULTIVITAMINS/MINERALS THERAP 1 TAB PO (08:18)
[2018-05-16] MEDS: CLOPIDOGREL 75 MG TAB PO (08:18)
[2018-05-16] MEDS: ROSUVASTATIN 10 MG TAB (CRESTOR) PO (08:18)
[2018-05-16] MEDS: amLODIPine 5 MG TAB PO (08:19)
== END 2018-05-16 10:59 | disposition short-term general hospital (02) | DRG 310 ==
LOC: M ED 16:03 → M ED INP 19:21 → M PCU 22:54
DX: I47.2 Ventricular tachycardia (principal); I35.0 Nonrheumatic aortic (valve) stenosis; G20 Parkinson's disease; I65.23 Occlusion and stenosis of bilateral carotid arteries; E78.49 Other hyperlipidemia; I48.2 Chronic atrial fibrillation; Z87.891 Personal history of nicotine dependence; Z79.899 Other long term (current) drug therapy; Z79.82 Long term (current) use of aspirin; E66.9 Obesity, unspecified; K21.9 Gastro-esophageal reflux disease without esophagitis; I44.30 Unspecified atrioventricular block; I11.9 Hypertensive heart disease without heart failure

== ENCOUNTER → 2018-05-21 | Outpatient (REF) | payer MEDICARE, BC, MEDICAID | LOC: SKLAB3 14:58 | DX: I51.7 Cardiomegaly (principal); Z79.899 Other long term (current) drug therapy ==

== ENCOUNTER → 2018-05-21 | Outpatient (REF) | payer MEDICARE, BC, MEDICAID | LOC: SKLAB3 21:27 | DX: I51.7 Cardiomegaly (principal); Z79.899 Other long term (current) drug therapy | CPT/HCPCS: 71045 ==

== ENCOUNTER → 2018-05-22 | Outpatient (REF) | payer MEDICARE, BC, MEDICAID ==
[~2018-05-22] MED LIST changes: +ACET1TAB55 PO; +ALLO100T PO; +ALLO10TA PO; +ASPI1CHW2 PO; +ASPI81TA85 PO; +ATRO1OPD SL; +BIOTLIQ3 MT; +CARB25TA9 PO; +CLOP75TA2 PO; +COLC1CAP PO; +CRES10TA32 PO; +CRES20TA PO; +DULC10SU2 PR; -E-Z-PAQUE 96% w/w SUSP 176GM BTL As Ordered; +ENEMENE4 PR; +FLUOCINONIDE 0.05% TOP; +GABA-843 PO; +LASI80TA3 PO; +LISI-542 PO; +LISI10TA4 PO; +LORA-243 PO; +MILK120011 PO; +MYLASUS16 PO; +NYAM10003 TOP; +RANI150T PO; +SIMV20TA2 PO; +SIMV80TA13 PO; +SINE25TA5 PO; +TORS10TA3 PO; -VARIBAR NECTAR 40% w/v 240ML SUSP BTL As Ordered; -VARIBAR PUDDING 40% w/v 230ML TUBE As Ordered; +VITMTA PO; +ZYLO300T6 PO
[2018-05-22 07:25] LABS: CALCIUM LEVEL 8.9 MG/DL (8.8-10.2); CREATININE FOR GFR 1.27 MG/DL (0.70-1.30); GLOMERULAR FILTRATION RATE 58.1 (>35); MAGNESIUM LEVEL 1.8 MG/DL (1.8-2.4); POTASSIUM SERUM 4.8 MEQ/L (3.5-5.1)
== END ==
LOC: SKLAB3 01:52
PROVIDERS: ATTEND Family Medicine
DX: I48.91 Unspecified atrial fibrillation (principal)

== ENCOUNTER → 2018-05-24 | Outpatient (REF) ==
[2018-05-24 10:10] LABS: ANION GAP 5 MEQ/L (8-16); BLOOD UREA NITROGEN 21 MG/DL (7-18); CALCIUM LEVEL 8.9 MG/DL (8.8-10.2); CARBON DIOXIDE LEVEL 29 MEQ/L (21-32); CHLORIDE LEVEL 109 MEQ/L (98-107); CREATININE FOR GFR 1.18 MG/DL (0.70-1.30); GLOMERULAR FILTRATION RATE > 60.0 (>35); GLUCOSE, FASTING 95 MG/DL (70-100); POTASSIUM SERUM 4.1 MEQ/L (3.5-5.1); SODIUM LEVEL 143 MEQ/L (136-145)
== END ==
LOC: SKLAB3 08:00
DX: Z79.899 Other long term (current) drug therapy (principal)

== ENCOUNTER → 2018-05-25 | Outpatient (REF) ==
[2018-05-25 11:29] LABS: ANION GAP 4 MEQ/L (8-16); BLOOD UREA NITROGEN 18 MG/DL (7-18); CALCIUM LEVEL 8.2 MG/DL (8.8-10.2); CARBON DIOXIDE LEVEL 30 MEQ/L (21-32); CHLORIDE LEVEL 110 MEQ/L (98-107); CREATININE FOR GFR 1.16 MG/DL (0.70-1.30); GLOMERULAR FILTRATION RATE > 60.0 (>35); GLUCOSE, FASTING 109 MG/DL (70-100); POTASSIUM SERUM 4.3 MEQ/L (3.5-5.1); SODIUM LEVEL 144 MEQ/L (136-145)
== END ==
LOC: SKLAB3 07:00
DX: R63.8 Other symptoms and signs concerning food and fluid intake (principal)

== ENCOUNTER → 2018-05-26 | Outpatient (REF) ==
[2018-05-26 10:30] LABS: ANION GAP 6 MEQ/L (8-16); BLOOD UREA NITROGEN 15 MG/DL (7-18); CALCIUM LEVEL 8.4 MG/DL (8.8-10.2); CARBON DIOXIDE LEVEL 27 MEQ/L (21-32); CHLORIDE LEVEL 109 MEQ/L (98-107); CREATININE FOR GFR 1.21 MG/DL (0.70-1.30); GLOMERULAR FILTRATION RATE > 60.0 (>35); GLUCOSE, FASTING 125 MG/DL (70-100); POTASSIUM SERUM 3.7 MEQ/L (3.5-5.1); SODIUM LEVEL 142 MEQ/L (136-145)
== END ==
LOC: SKLAB3 07:00
DX: R63.8 Other symptoms and signs concerning food and fluid intake (principal)

== ENCOUNTER → 2018-05-27 | Outpatient (REF) ==
[2018-05-27 08:56] LABS: ANION GAP 6 MEQ/L (8-16); BLOOD UREA NITROGEN 13 MG/DL (7-18); CALCIUM LEVEL 8.6 MG/DL (8.8-10.2); CARBON DIOXIDE LEVEL 28 MEQ/L (21-32); CHLORIDE LEVEL 111 MEQ/L (98-107); CREATININE FOR GFR 1.04 MG/DL (0.70-1.30); GLOMERULAR FILTRATION RATE > 60.0 (>35); GLUCOSE, FASTING 92 MG/DL (70-100); POTASSIUM SERUM 4.1 MEQ/L (3.5-5.1); SODIUM LEVEL 145 MEQ/L (136-145)
== END ==
LOC: SKLAB3 07:00
DX: R63.8 Other symptoms and signs concerning food and fluid intake (principal)

== ENCOUNTER → 2018-05-28 | Outpatient (REF) ==
[2018-05-28 07:51] LABS: ANION GAP 4 MEQ/L (8-16); BLOOD UREA NITROGEN 11 MG/DL (7-18); CALCIUM LEVEL 7.8 MG/DL (8.8-10.2); CARBON DIOXIDE LEVEL 29 MEQ/L (21-32); CHLORIDE LEVEL 109 MEQ/L (98-107); CREATININE FOR GFR 1.13 MG/DL (0.70-1.30); GLOMERULAR FILTRATION RATE > 60.0 (>35); GLUCOSE, FASTING 91 MG/DL (70-100); POTASSIUM SERUM 3.9 MEQ/L (3.5-5.1); SODIUM LEVEL 142 MEQ/L (136-145)
== END ==
LOC: SKLAB3 07:00
DX: R63.8 Other symptoms and signs concerning food and fluid intake (principal)

== ENCOUNTER → 2018-05-29 | Outpatient (REF) ==
[2018-05-29 07:52] LABS: ANION GAP 7 MEQ/L (8-16); BLOOD UREA NITROGEN 9 MG/DL (7-18); CALCIUM LEVEL 8.3 MG/DL (8.8-10.2); CARBON DIOXIDE LEVEL 28 MEQ/L (21-32); CHLORIDE LEVEL 108 MEQ/L (98-107); CREATININE FOR GFR 1.15 MG/DL (0.70-1.30); GLOMERULAR FILTRATION RATE > 60.0 (>35); GLUCOSE, FASTING 94 MG/DL (70-100); POTASSIUM SERUM 3.9 MEQ/L (3.5-5.1); SODIUM LEVEL 143 MEQ/L (136-145)
== END ==
LOC: SKLAB3 07:00
DX: R63.8 Other symptoms and signs concerning food and fluid intake (principal)

== ENCOUNTER → 2018-05-30 | Outpatient (REF) ==
[2018-05-30 08:52] LABS: ANION GAP 6 MEQ/L (8-16); BLOOD UREA NITROGEN 8 MG/DL (7-18); CALCIUM LEVEL 8.4 MG/DL (8.8-10.2); CARBON DIOXIDE LEVEL 26 MEQ/L (21-32); CHLORIDE LEVEL 108 MEQ/L (98-107); CREATININE FOR GFR 1.08 MG/DL (0.70-1.30); GLOMERULAR FILTRATION RATE > 60.0 (>35); GLUCOSE, FASTING 96 MG/DL (70-100); POTASSIUM SERUM 3.7 MEQ/L (3.5-5.1); SODIUM LEVEL 140 MEQ/L (136-145)
== END ==
LOC: SKLAB3 07:00
DX: R63.8 Other symptoms and signs concerning food and fluid intake (principal)

== ENCOUNTER → 2018-06-03 | Outpatient (REF) ==
[2018-06-03 09:43] LABS: CALCIUM LEVEL 8.8 MG/DL (8.8-10.2); CREATININE FOR GFR 1.26 MG/DL (0.70-1.30); GLOMERULAR FILTRATION RATE 58.6 (>35); POTASSIUM SERUM 4.1 MEQ/L (3.5-5.1)
== END ==
LOC: SKLAB3 07:00
PROVIDERS: ATTEND Family Medicine
DX: E63.9 Nutritional deficiency, unspecified (principal)

== ENCOUNTER → 2018-06-27 | Outpatient (CLI) | payer MEDICARE, BC, MEDICAID ==
[~2018-06-27] MED LIST changes: +E-Z-PAQUE 96% w/w SUSP 176GM BTL As Ordered ONE; +ENEMENE16 PR; -ENEMENE4 PR; +LASI80TA PO; -LASI80TA3 PO; -MILK120011 PO; +MILK12002 PO; +VARIBAR NECTAR 40% w/v 240ML SUSP BTL As Ordered ONE; +VARIBAR PUDDING 40% w/v 230ML TUBE As Ordered ONE
--- NOTE | 2018-06-27 15:35 | NUR ---
Pt seen this date for MBSS to determine safety of current diet consistency and possible upgrade. APPLICATION TECHNICIAN that currently works with Pt reported suspect fatigue with increased s/s of aspiration/penetration toward the end of his meal. Pt was provided with applesauce just prior to barium mixtures. Pt presents with moderate-severe oropharyngeal phase dysphagia as characterized by slow, ineffective mastication of soft solids with oral residue(post swallow), trace penetration of honey thick liquids and moderate silent aspiration of nectar thick liquids. Recommend: Puree solids and honey thick liquids. Alternate solids and liquids throughout meal. OOB and full upright position for meals, snacks and medication administration. Addendum: 06/27/18 at 1541 by CHERY MCDONOUGH [facility] Amended: Links added.
--- NOTE | 2018-06-27 17:02 | REP ---
Modified barium swallow: Lateral video fluoroscopy. History: Dysphagia. Difficulty eating. The procedure was performed in conjunction with a swallowing therapist to give the patient various textured barium labeled material. With thick nectar and thin liquids, there was fairly prominent laryngeal reflux. Tracheal aspiration was observed with thin barium. This did not produce a cough reflex. Semi solid and pudding texture material did not demonstrate reflux or aspiration. Impression: Mild aspiration with thin liquids. No cough reflex observed. Fluoroscopy time is 1.2 minutes. Electronically Signed by Gurwinder Erickson MD 06/27/2018 08:17 P
== END ==
LOC: M RAD 12:30
PROVIDERS: ATTEND Family Medicine
DX: R47.02 Dysphasia (principal)
CPT/HCPCS: 74230; 92611; G8996; G8997; G8998

== ENCOUNTER → 2018-06-27 | Outpatient (REF) | payer MEDICARE, BC, MEDICAID ==
[~2018-06-27] MED LIST changes: -E-Z-PAQUE 96% w/w SUSP 176GM BTL As Ordered ONE; -ENEMENE16 PR; +ENEMENE4 PR; -LASI80TA PO; +LASI80TA3 PO; +MILK120011 PO; -MILK12002 PO; -VARIBAR NECTAR 40% w/v 240ML SUSP BTL As Ordered ONE; -VARIBAR PUDDING 40% w/v 230ML TUBE As Ordered ONE
[2018-06-27 09:06] LABS: CHOLESTEROL RISK RATIO 2.527 (<5)
== END ==
LOC: SKLAB3 07:00
PROVIDERS: ATTEND Family Medicine
DX: E78.5 Hyperlipidemia, unspecified (principal); I47.2 Ventricular tachycardia

== ENCOUNTER → 2018-08-29 | Outpatient (REF) | payer MEDICARE, BC, MEDICAID ==
[2018-08-29 09:02] LABS: HEMATOCRIT 43.6 % (42.0-52.0); HEMOGLOBIN 14.1 g/dl (13.5-17.5); MEAN CORPUSCULAR HEMOGLOBIN 31.8 pg (27.0-33.0); MEAN CORPUSCULAR HGB CONC 32.3 g/dl (32.0-36.5); MEAN CORPUSCULAR VOLUME 98.2 fl (80.0-96.0); PLATELET COUNT, AUTOMATED 180 10^3/uL (150-450); RED BLOOD COUNT 4.44 10^6/uL (4.30-6.10)
[2018-08-29 09:20] LABS: BLOOD UREA NITROGEN 17 MG/DL (7-18); CALCIUM LEVEL 8.7 MG/DL (8.8-10.2); CARBON DIOXIDE LEVEL 29 MEQ/L (21-32); CHLORIDE LEVEL 104 MEQ/L (98-107); GLOMERULAR FILTRATION RATE > 60.0 (>35); GLUCOSE, FASTING 82 MG/DL (70-100); POTASSIUM SERUM 3.6 MEQ/L (3.5-5.1); SODIUM LEVEL 140 MEQ/L (136-145); URIC ACID 3.8 MG/DL (3.5-7.2)
== END ==
LOC: SKLAB3 13:01
PROVIDERS: ATTEND Family Medicine
DX: D64.9 Anemia, unspecified (principal); M10.9 Gout, unspecified; G20 Parkinson's disease

== ENCOUNTER → 2018-09-26 | Outpatient (REF) | payer MEDICARE, BC, MEDICAID ==
[2018-09-26 08:44] LABS: CHOLESTEROL RISK RATIO 2.769 (<5); MAGNESIUM LEVEL 1.7 MG/DL (1.8-2.4)
== END ==
LOC: SKLAB3 07:00
PROVIDERS: ATTEND Family Medicine
DX: R00.0 Tachycardia, unspecified (principal); E78.5 Hyperlipidemia, unspecified

== ENCOUNTER → 2018-11-28 | Outpatient (REF) | payer MEDICARE, BC, MEDICAID ==
[~2018-11-28] MED LIST changes: +CRES10TA PO; -CRES10TA32 PO; -CRES20TA PO; +CRES20TA2 PO
[2018-11-28 08:26] LABS: HEMATOCRIT 44.9 % (42.0-52.0); HEMOGLOBIN 14.7 g/dl (13.5-17.5); MEAN CORPUSCULAR HEMOGLOBIN 32.5 pg (27.0-33.0); MEAN CORPUSCULAR HGB CONC 32.7 g/dl (32.0-36.5); MEAN CORPUSCULAR VOLUME 99.1 fl (80.0-96.0); PLATELET COUNT, AUTOMATED 148 10^3/uL (150-450); RED BLOOD COUNT 4.53 10^6/uL (4.30-6.10); WHITE BLOOD COUNT 6.8 10^3/uL (4.0-10.0)
[2018-11-28 08:50] LABS: BLOOD UREA NITROGEN 13 MG/DL (7-18); CALCIUM LEVEL 8.6 MG/DL (8.8-10.2); CARBON DIOXIDE LEVEL 29 MEQ/L (21-32); CHLORIDE LEVEL 106 MEQ/L (98-107); CREATININE FOR GFR 1.09 MG/DL (0.70-1.30); GLOMERULAR FILTRATION RATE > 60.0 (>35); GLUCOSE, FASTING 122 MG/DL (70-100); IRON (FE) 56 UG/DL (65-175); POTASSIUM SERUM 3.8 MEQ/L (3.5-5.1); SODIUM LEVEL 141 MEQ/L (136-145)
== END ==
LOC: SKLAB3 07:00
PROVIDERS: ATTEND Family Medicine
DX: D64.9 Anemia, unspecified (principal); G20 Parkinson's disease

== ENCOUNTER → 2018-12-26 | Outpatient (REF) | payer MEDICARE, BC, MEDICAID | LOC: SKLAB3 07:00 | PROVIDERS: ATTEND Family Medicine | DX: E83.42 Hypomagnesemia (principal) ==

== ENCOUNTER → 2019-03-06 | Outpatient (REF) | payer MEDICARE, BC, MEDICAID ==
[2019-03-06 08:02] LABS: HEMATOCRIT 43.1 % (42.0-52.0); HEMOGLOBIN 14.2 g/dl (13.5-17.5); MEAN CORPUSCULAR HGB CONC 32.9 g/dl (32.0-36.5); MEAN CORPUSCULAR VOLUME 100.2 fl (80.0-96.0); PLATELET COUNT, AUTOMATED 189 10^3/uL (150-450); WHITE BLOOD COUNT 6.2 10^3/uL (4.0-10.0)
[2019-03-06 08:28] LABS: ALBUMIN 3.3 GM/DL (3.2-5.2); ALT/SGPT 12 U/L (12-78); BILIRUBIN,TOTAL 0.8 MG/DL (0.2-1.0); BLOOD UREA NITROGEN 18 MG/DL (7-18); CALCIUM LEVEL 8.7 MG/DL (8.8-10.2); CARBON DIOXIDE LEVEL 26 MEQ/L (21-32); CHLORIDE LEVEL 105 MEQ/L (98-107); CREATININE FOR GFR 1.09 MG/DL (0.70-1.30); GLOMERULAR FILTRATION RATE > 60.0 (>35); GLUCOSE, FASTING 100 MG/DL (70-100); IRON (FE) 48 UG/DL (65-175); SODIUM LEVEL 140 MEQ/L (136-145); TOTAL PROTEIN 6.8 GM/DL (6.4-8.2)
== END ==
LOC: SKLAB3 07:00
PROVIDERS: ATTEND Family Medicine
DX: D64.9 Anemia, unspecified (principal); G20 Parkinson's disease

== ENCOUNTER → 2019-03-27 | Outpatient (REF) | payer MEDICARE, BC, MEDICAID ==
[2019-03-27 09:57] LABS: CHOLESTEROL RISK RATIO 2.756 (<5); MAGNESIUM LEVEL 1.8 MG/DL (1.8-2.4)
== END ==
LOC: SKLAB3 11:25
PROVIDERS: ATTEND Family Medicine
DX: E78.49 Other hyperlipidemia (principal)

== ENCOUNTER → 2019-05-29 | Outpatient (REF) | payer MEDICARE, BC, MEDICAID ==
[2019-05-29 09:39] LABS: HEMATOCRIT 38.5 % (42.0-52.0); HEMOGLOBIN 12.2 g/dl (13.5-17.5); MEAN CORPUSCULAR HEMOGLOBIN 32.3 pg (27.0-33.0); MEAN CORPUSCULAR HGB CONC 31.7 g/dl (32.0-36.5); MEAN CORPUSCULAR VOLUME 101.9 fl (80.0-96.0); PLATELET COUNT, AUTOMATED 176 10^3/uL (150-450); RED BLOOD COUNT 3.78 10^6/uL (4.30-6.10)
[2019-05-29 09:59] LABS: BLOOD UREA NITROGEN 18 MG/DL (7-18); CALCIUM LEVEL 8.6 MG/DL (8.8-10.2); CARBON DIOXIDE LEVEL 29 MEQ/L (21-32); CHLORIDE LEVEL 108 MEQ/L (98-107); GLOMERULAR FILTRATION RATE > 60.0 (>35); GLUCOSE, FASTING 126 MG/DL (70-100); IRON (FE) 42 UG/DL (65-175); SODIUM LEVEL 143 MEQ/L (136-145)
== END ==
LOC: SKLAB3 07:00
PROVIDERS: ATTEND Family Medicine
DX: G20 Parkinson's disease (principal); D64.9 Anemia, unspecified

== ENCOUNTER → 2019-06-26 | Outpatient (REF) | payer MEDICARE, BC, MEDICAID ==
[~2019-06-26] MED LIST changes: -SIMV20TA2 PO; +SIMV20TA22 PO
== END ==
LOC: SKLAB3 14:35
PROVIDERS: ATTEND Family Medicine
DX: I47.2 Ventricular tachycardia (principal)

== ENCOUNTER → 2019-07-31 | Outpatient (REF) | payer MEDICARE, BC, MEDICAID ==
[2019-07-31 08:18] LABS: HEMATOCRIT 46.5 % (42.0-52.0); HEMOGLOBIN 14.2 g/dl (13.5-17.5); MEAN CORPUSCULAR HEMOGLOBIN 31.2 pg (27.0-33.0); MEAN CORPUSCULAR HGB CONC 30.5 g/dl (32.0-36.5); MEAN CORPUSCULAR VOLUME 102.2 fl (80.0-96.0); PLATELET COUNT, AUTOMATED 178 10^3/uL (150-450); RED BLOOD COUNT 4.55 10^6/uL (4.30-6.10); WHITE BLOOD COUNT 8.1 10^3/uL (4.0-10.0)
[2019-07-31 08:48] LABS: ALBUMIN 3.5 GM/DL (3.2-5.2); BILIRUBIN,TOTAL 0.9 MG/DL (0.2-1.0); CALCIUM LEVEL 8.6 MG/DL (8.8-10.2); CREATININE FOR GFR 1.28 MG/DL (0.70-1.30); GLOMERULAR FILTRATION RATE 57.4 (>35); POTASSIUM SERUM 3.7 MEQ/L (3.5-5.1); TOTAL PROTEIN 7.7 GM/DL (6.4-8.2)
== END ==
LOC: SKLAB3 11:32
PROVIDERS: ATTEND Family Medicine
DX: D64.9 Anemia, unspecified (principal); G20 Parkinson's disease

== ENCOUNTER → 2019-08-09 | Outpatient (CLI) | payer MEDICARE, BC, MEDICAID ==
--- NOTE | 2019-08-09 15:38 | REP ---
Examination Requested: Cookie Swallow Reason For Exam: Diet upgrade The procedure was performed by LILIANA Gloria, under the direct supervision of Dr. Hill. The procedure was performed with Porsche Andrea and Vanesa Moe from speech pathology present. 5 ml aliquots of thin, pudding, nectar , soft food, and honey thick consistency barium was administered. Aspiration without a cough response was visualized with thin, nectar, and honey thick consistency barium. The detailed report of this examination will be provided by speech pathology. 1.8 minutes of fluoroscopy time was utilized for this procedure. Reviewed by LILIANA Ruiz 08/09/2019 02:27 P Electronically Signed by Hugo Hill MD 08/09/2019 03:30 P
== END ==
LOC: M ST 11:20
PROVIDERS: ATTEND Family Medicine
DX: R13.10 Dysphagia, unspecified (principal)

== ENCOUNTER → 2019-09-25 | Outpatient (REF) | payer MEDICARE, BC, MEDICAID ==
[2019-09-25 09:22] LABS: CHOLESTEROL RISK RATIO 2.571 (<5); MAGNESIUM LEVEL 2.1 MG/DL (1.8-2.4)
== END ==
LOC: SKLAB3 09:03
PROVIDERS: ATTEND Family Medicine
DX: E78.5 Hyperlipidemia, unspecified (principal); I47.2 Ventricular tachycardia

== ENCOUNTER → 2019-10-31 | Outpatient (REF) | payer MEDICARE, BC, MEDICAID ==
[2019-10-31 11:08] LABS: HEMATOCRIT 43.6 % (42.0-52.0); HEMOGLOBIN 14.3 g/dl (13.5-17.5); MEAN CORPUSCULAR HEMOGLOBIN 32.4 pg (27.0-33.0); MEAN CORPUSCULAR HGB CONC 32.8 g/dl (32.0-36.5); MEAN CORPUSCULAR VOLUME 98.9 fl (80.0-96.0); PLATELET COUNT, AUTOMATED 155 10^3/uL (150-450); RED BLOOD COUNT 4.41 10^6/uL (4.30-6.10); WHITE BLOOD COUNT 7.8 10^3/uL (4.0-10.0)
[2019-10-31 11:56] LABS: CALCIUM LEVEL 8.7 MG/DL (8.8-10.2); CREATININE FOR GFR 1.28 MG/DL (0.70-1.30); GLOMERULAR FILTRATION RATE 57.4 (>35); POTASSIUM SERUM 4.1 MEQ/L (3.5-5.1)
== END ==
LOC: SKLAB3 14:54
PROVIDERS: ATTEND Family Medicine
DX: D64.9 Anemia, unspecified (principal); G20 Parkinson's disease

== ENCOUNTER → 2019-11-21 | Outpatient (REF) | LOC: SKLAB3 11:26 | PROVIDERS: ATTEND Internal Medicine | DX: Z03.818 Encounter for observation for suspected exposure to other biological agents ruled out (principal) ==

== ENCOUNTER → 2019-12-08 | Outpatient (REF) | payer MEDICARE, BC, MEDICAID ==
[2019-12-08 15:29] LABS: HEMATOCRIT 44.3 % (42.0-52.0); HEMOGLOBIN 14.2 g/dl (13.5-17.5); MEAN CORPUSCULAR HEMOGLOBIN 31.6 pg (27.0-33.0); MEAN CORPUSCULAR HGB CONC 32.1 g/dl (32.0-36.5); MEAN CORPUSCULAR VOLUME 98.7 fl (80.0-96.0); PLATELET COUNT, AUTOMATED 173 10^3/uL (150-450); RED BLOOD COUNT 4.49 10^6/uL (4.30-6.10); WHITE BLOOD COUNT 6.1 10^3/uL (4.0-10.0)
== END ==
LOC: SKLAB3 14:51
PROVIDERS: ATTEND Family Medicine
DX: R22.9 Localized swelling, mass and lump, unspecified (principal); R23.8 Other skin changes

== ENCOUNTER → 2019-12-11 | Outpatient (CLI) | payer MEDICARE, BC, MEDICAID ==
--- NOTE | 2019-12-11 15:04 | REP ---
Left upper extremity duplex Doppler venous ultrasound. Real time compression and duplex Doppler evaluation of the left upper extremity deep venous system is performed. The left subclavian, jugular, axillary, brachial, basilic and cephalic veins are fully compressible where accessible with transducer pressure, and demonstrate no intraluminal thrombus and normal venous waveforms. There is no evidence of deep venous thrombosis. Impression: No evidence of deep venous thrombosis of the left upper extremity deep vein system. Electronically Signed by Hugo Hudson MD 12/11/2019 02:55 P
== END ==
LOC: M RAD 14:09
PROVIDERS: ATTEND Nurse Practitioner Family
DX: M79.89 Other specified soft tissue disorders (principal)

== ENCOUNTER → 2019-12-11 | Outpatient (REF) | payer MEDICARE, BC, MEDICAID ==
[2019-12-11 12:33] LABS: HEMATOCRIT 47.5 % (42.0-52.0); HEMOGLOBIN 15.3 g/dl (13.5-17.5); MEAN CORPUSCULAR HGB CONC 32.2 g/dl (32.0-36.5); MEAN CORPUSCULAR VOLUME 99.4 fl (80.0-96.0); PLATELET COUNT, AUTOMATED 176 10^3/uL (150-450); RED BLOOD COUNT 4.78 10^6/uL (4.30-6.10); WHITE BLOOD COUNT 8.5 10^3/uL (4.0-10.0)
[2019-12-11 12:59] LABS: ERYTHROCYTE SEDIMENTATION RATE 12 mm/hr (0-20)
[2019-12-11 13:02] LABS: ALBUMIN 3.3 GM/DL (3.2-5.2); ALT/SGPT 9 U/L (12-78); BILIRUBIN,TOTAL 0.6 MG/DL (0.2-1.0); BLOOD UREA NITROGEN 22 MG/DL (7-18); C REACTIVE PROTEIN QUANTITATIV 0.66 MG/DL (0.00-0.30); CALCIUM LEVEL 8.4 MG/DL (8.8-10.2); CARBON DIOXIDE LEVEL 30 MEQ/L (21-32); CHLORIDE LEVEL 105 MEQ/L (98-107); CREATININE FOR GFR 1.22 MG/DL (0.70-1.30); GLOMERULAR FILTRATION RATE > 60.0 (>35); GLUCOSE, FASTING 100 MG/DL (70-100); POTASSIUM SERUM 4.3 MEQ/L (3.5-5.1); RHEUMATOID FACTOR QUANT < 10.0 IU/ML (<15.0); SODIUM LEVEL 137 MEQ/L (136-145)
[2019-12-11 13:25] LABS: APPEARANCE, URINE CLEAR (CLEAR); BACTERIA, URINE AUTO NEGATIVE (NEGATIVE); BILIRUBIN, URINE AUTO NEGATIVE (NEGATIVE); BLOOD, URINE BLOOD NEGATIVE (NEGATIVE); COLOR, URINE YELLOW (YELLOW); GLUCOSE, URINE (UA) AUTO NEGATIVE (NEGATIVE); KETONE, URINE AUTO TRACE mg/dL (NEGATIVE); LEUKOCYTE ESTERASE, URINE AUTO NEGATIVE (NEGATIVE); NITRITE, URINE AUTO NEGATIVE (NEGATIVE); PROTEIN, URINE AUTO NEGATIVE (NEGATIVE); RBC, URINE AUTO 7 /HPF (0-3); SPECIFIC GRAVITY URINE AUTO 1.019 (1.002-1.035); SQUAMOUS EPITHELIAL CELL UR AU 0 /HPF (0-6); WBC, URINE AUTO 1 /HPF (0-3)
[2019-12-12 13:07] LABS: ANTINUCLEAR ANTIBODIES DIRECT Negative (Negative)
== END ==
LOC: SKLAB3 11:13
PROVIDERS: ATTEND Nurse Practitioner Family
DX: L03.90 Cellulitis, unspecified (principal); R22.32 Localized swelling, mass and lump, left upper limb; R23.8 Other skin changes; M79.89 Other specified soft tissue disorders

== ENCOUNTER → 2019-12-26 | Outpatient (REF) | payer MEDICARE, BC, MEDICAID | LOC: SKLAB3 08:01 | PROVIDERS: ATTEND Family Medicine | DX: E83.42 Hypomagnesemia (principal) ==

== ENCOUNTER → 2020-01-23 | Outpatient (REF) | payer MEDICARE, BC, MEDICAID ==
--- NOTE | 2020-01-23 23:46 | REP ---
REASON: Atraumatic pain. PRIORS: None. There is slight asymmetric hip joint space narrowing without buttressing, fracture, dislocation, or subluxation. There is a bone island in the right sacral ala. IMPRESSION: Chronic changes. Electronically Signed by John Pedersen DO 01/24/2020 12:37 P
== END ==
LOC: SKLAB3 12:41
DX: M25.551 Pain in right hip (principal)

== ENCOUNTER → 2020-01-30 | Outpatient (REF) | payer MEDICARE, BC, MEDICAID ==
[2020-01-30 08:28] LABS: HEMATOCRIT 45.2 % (42.0-52.0); HEMOGLOBIN 14.6 g/dl (13.5-17.5); MEAN CORPUSCULAR HEMOGLOBIN 32.2 pg (27.0-33.0); MEAN CORPUSCULAR HGB CONC 32.3 g/dl (32.0-36.5); MEAN CORPUSCULAR VOLUME 99.8 fl (80.0-96.0); PLATELET COUNT, AUTOMATED 169 10^3/uL (150-450); RED BLOOD COUNT 4.53 10^6/uL (4.30-6.10); WHITE BLOOD COUNT 7.3 10^3/uL (4.0-10.0)
== END ==
LOC: SKLAB3 07:00
DX: D64.9 Anemia, unspecified (principal)

== ENCOUNTER → 2020-02-22 | Outpatient (REF) | payer MEDICARE, BC, MEDICAID ==
[~2020-02-22] MED LIST changes: -ASPI81TA85 PO; +ASPI81TA86 PO
== END ==
LOC: CANPREREF → SKLAB3 07:00
DX: I48.91 Unspecified atrial fibrillation (principal)

== ENCOUNTER → 2020-02-22 | Outpatient (REF) | payer MEDICARE, BC, MEDICAID ==
[2020-05-18 12:09] LABS: CALCIUM LEVEL 8.6 MG/DL (8.8-10.2); CREATININE FOR GFR 1.51 MG/DL (0.70-1.30); GLOMERULAR FILTRATION RATE 47.3 (>35); POTASSIUM SERUM 4.3 MEQ/L (3.5-5.1)
== END ==
LOC: SKLAB3 09:40
DX: I48.91 Unspecified atrial fibrillation (principal)

== ENCOUNTER → 2020-04-30 | Outpatient (REF) | payer MEDICARE, BC, MEDICAID ==
[2020-04-30 09:05] LABS: ALBUMIN 3.2 GM/DL (3.2-5.2); BILIRUBIN,TOTAL 0.9 MG/DL (0.2-1.0); CALCIUM LEVEL 8.6 MG/DL (8.8-10.2); CREATININE FOR GFR 1.55 MG/DL (0.70-1.30); GLOMERULAR FILTRATION RATE 45.9 (>35); POTASSIUM SERUM 3.9 MEQ/L (3.5-5.1); TOTAL PROTEIN 7.8 GM/DL (6.4-8.2)
== END ==
LOC: SKLAB3 07:00
DX: G20 Parkinson's disease (principal)

== ENCOUNTER → 2020-05-14 | Outpatient (REF) | payer MEDICARE, BC, MEDICAID ==
[2020-05-14 09:35] LABS: CALCIUM LEVEL 8.7 MG/DL (8.8-10.2); CREATININE FOR GFR 1.44 MG/DL (0.70-1.30)
== END ==
LOC: SKLAB3 07:00
DX: N18.30 Chronic kidney disease, stage 3 unspecified (principal)

== ENCOUNTER → 2020-05-23 | Outpatient (REF) | LOC: SKLAB3 12:44 | DX: Z20.828 Contact with and (suspected) exposure to other viral communicable diseases (principal) ==

== ENCOUNTER → 2020-05-28 | Outpatient (REF) | payer MEDICARE, BC, MEDICAID ==
[2020-05-28 09:12] LABS: HEMATOCRIT 47.7 % (42.0-52.0); HEMOGLOBIN 15.8 g/dl (13.5-17.5); MEAN CORPUSCULAR HEMOGLOBIN 31.7 pg (27.0-33.0); MEAN CORPUSCULAR HGB CONC 33.1 g/dl (32.0-36.5); MEAN CORPUSCULAR VOLUME 95.8 fl (80.0-96.0); PLATELET COUNT, AUTOMATED 184 10^3/uL (150-450); RED BLOOD COUNT 4.98 10^6/uL (4.30-6.10); WHITE BLOOD COUNT 8.6 10^3/uL (4.0-10.0)
== END ==
LOC: SKLAB3 07:00
DX: G20 Parkinson's disease (principal)

== ENCOUNTER → 2020-05-29 | Outpatient (REF) | payer MEDICARE, BC, MEDICAID ==
[~2020-05-29] MED LIST changes: +BISO5TAB14 PO; +CIME-49 PO; +FURO20TA2 PO; +GABA-282 PO; -GABA-843 PO; -LISI-542 PO; +LISI-898 PO; +LISI10TA22 PO; -LISI10TA4 PO; +MOM30SS2 PO; +MYLASSUD GT; +NITR4TASL SL; +ROSU10TA6 PO; +TRIA1CR80 TOP; +XARE10TA PO
== END ==
LOC: SKLAB3 05-28 12:43 → EDSTATUS 06-20 14:32
PROVIDERS: ATTEND Internal Medicine
DX: Z20.828 Contact with and (suspected) exposure to other viral communicable diseases (principal)

== ENCOUNTER → 2020-06-05 | Outpatient (REF) | payer MEDICARE, BC, MEDICAID | LOC: SKLAB3 08:00 | PROVIDERS: ATTEND Internal Medicine | DX: Z20.828 Contact with and (suspected) exposure to other viral communicable diseases (principal) ==

== ENCOUNTER → 2020-06-12 | Outpatient (REF) | payer MEDICARE, BC, MEDICAID | LOC: SKLAB3 08:00 | PROVIDERS: ATTEND Internal Medicine | DX: Z20.828 Contact with and (suspected) exposure to other viral communicable diseases (principal) ==

== ENCOUNTER → 2020-06-19 | Outpatient (REF) | payer MEDICARE, BC, MEDICAID ==
[~2020-06-19] MED LIST changes: -BISO5TAB14 PO; -CIME-49 PO; -FURO20TA2 PO; -GABA-282 PO; +GABA-843 PO; +LISI-542 PO; -LISI-898 PO; -LISI10TA22 PO; +LISI10TA4 PO; -MOM30SS2 PO; -MYLASSUD GT; -NITR4TASL SL; -ROSU10TA6 PO; -TRIA1CR80 TOP; -XARE10TA PO
== END ==
LOC: SKLAB3 07:02
DX: Z20.828 Contact with and (suspected) exposure to other viral communicable diseases (principal)

== ENCOUNTER → 2020-06-26 | Outpatient (REF) | payer MEDICARE, BC, MEDICAID | LOC: SKLAB3 10:04 | DX: Z20.828 Contact with and (suspected) exposure to other viral communicable diseases (principal) ==

== ENCOUNTER → 2020-07-03 | Outpatient (REF) | payer MEDICARE, BC, MEDICAID | LOC: SKLAB3 07:00 | DX: Z20.828 Contact with and (suspected) exposure to other viral communicable diseases (principal) ==

== ENCOUNTER → 2020-07-10 | Outpatient (REF) | payer MEDICARE, BC, MEDICAID | LOC: SKLAB3 07:01 | DX: Z20.828 Contact with and (suspected) exposure to other viral communicable diseases (principal) ==

== ENCOUNTER → 2020-07-15 | Outpatient (REF) | payer MEDICARE, BC, MEDICAID ==
[2020-07-15 12:53] LABS: APPEARANCE, URINE CLEAR (CLEAR); BACTERIA, URINE AUTO NEGATIVE (NEGATIVE); BILIRUBIN, URINE AUTO NEGATIVE (NEGATIVE); BLOOD, URINE BLOOD NEGATIVE (NEGATIVE); COLOR, URINE YELLOW (YELLOW); GLUCOSE, URINE (UA) AUTO NEGATIVE (NEGATIVE); KETONE, URINE AUTO NEGATIVE (NEGATIVE); LEUKOCYTE ESTERASE, URINE AUTO NEGATIVE (NEGATIVE); NITRITE, URINE AUTO NEGATIVE (NEGATIVE); PROTEIN, URINE AUTO NEGATIVE (NEGATIVE); RBC, URINE AUTO 0 /HPF (0-3); SPECIFIC GRAVITY URINE AUTO 1.011 (1.002-1.035); SQUAMOUS EPITHELIAL CELL UR AU 0 /HPF (0-6); WBC, URINE AUTO 0 /HPF (0-3)
== END ==
LOC: SKLAB2 12:30
DX: R41.82 Altered mental status, unspecified (principal)

== ENCOUNTER → 2020-07-17 | Outpatient (REF) | payer MEDICARE, BC, MEDICAID | LOC: SKLAB3 09:39 | PROVIDERS: ATTEND Internal Medicine | DX: Z11.52 Encounter for screening for COVID-19 (principal) ==

== ENCOUNTER → 2020-07-24 | Outpatient (REF) | payer MEDICARE, BC, MEDICAID ==
[~2020-07-24] MED LIST changes: +GABA-282 PO; -GABA-843 PO
== END ==
LOC: SKLAB3 07:00
PROVIDERS: ATTEND Internal Medicine
DX: Z11.52 Encounter for screening for COVID-19 (principal)

== ENCOUNTER → 2020-07-31 | Outpatient (REF) | payer MEDICARE, BC, MEDICAID ==
[~2020-07-31] MED LIST changes: +BISO5TAB14 PO; +CIME-49 PO; +FURO20TA2 PO; -LISI-542 PO; +LISI-898 PO; +LISI10TA22 PO; -LISI10TA4 PO; +MOM30SS2 PO; +MYLASSUD GT; +NITR4TASL SL; +ROSU10TA6 PO; +TRIA1CR80 TOP; +XARE10TA PO
== END ==
LOC: SKLAB3 07:00
PROVIDERS: ATTEND Internal Medicine
DX: Z20.822 Contact with and (suspected) exposure to COVID-19 (principal)

== ENCOUNTER → 2020-08-07 | Outpatient (REF) | payer MEDICARE, BC, MEDICAID | LOC: SKLAB3 14:47 | PROVIDERS: ATTEND Internal Medicine | DX: Z20.822 Contact with and (suspected) exposure to COVID-19 (principal) ==

== ENCOUNTER 2020-08-12 10:37 | Inpatient (IN) | payer MEDICARE, BC, MEDICAID ==
[~2020-08-12] VITALS: Ht 172.7 cm; Wt 120.9 kg
[~2020-08-12 10:37] MED LIST changes: -BISO5TAB14 PO; -CIME-49 PO; -FURO20TA2 PO; -MOM30SS2 PO; -MYLASSUD GT; -NITR4TASL SL; -ROSU10TA6 PO; -TRIA1CR80 TOP
--- OUTSIDE RECORDS SUMMARY | 2020-08-12 10:50 | CCD ---
Author Author [facility] Organization [facility] Address Unknown Phone Unavailable Care Team Providers Care Offal Roller Name Role Phone MEENAKSHI CHEUNG MD Unavailable Unavailable MEENAKSHI CHEUNG MD Unavailable Unavailable SKYEMEENAKSHI MD Unavailable Unavailable SKYEMEENAKSHI MD Unavailable Unavailable SKYEMEENAKSHI MD Unavailable Unavailable SKYEMEENAKSHI MD Unavailable Unavailable SKYEMEENAKSHI MD Unavailable Unavailable SKYEMEENAKSHI MD Unavailable Unavailable SKYEMEENAKSHI MD Unavailable Unavailable SKYEMEENAKSHI MD Unavailable Unavailable MEENAKSHI CHEUNG MD Unavailable Unavailable SKYEMEENAKSHI MD Unavailable Unavailable SKYEMEENAKSHI MD Unavailable Unavailable SKYEMEENAKSHI MD Unavailable Unavailable SKYEMEENAKSHI MD Unavailable Unavailable SKYEMEENAKSHI MD Unavailable Unavailable MEENAKSHI CHEUNG MD Unavailable Unavailable MEENAKSHI CHEUNG MD Unavailable Unavailable MEENAKSHI CHEUNG MD Unavailable Unavailable MEENAKSHI CHEUNG MD Unavailable Unavailable MEENAKSHI CHEUNG MD Unavailable Unavailable MEENAKSHI CHEUNG MD Unavailable Unavailable MEENAKSHI CHEUNG MD Unavailable Unavailable MEENAKSHI CHEUNG MD Unavailable Unavailable SKYEMEENAKSHI MD Unavailable Unavailable MEENAKSHI CHEUNG MD Unavailable Unavailable MEENAKSHI CHEUNG MD Unavailable Unavailable MEENAKSHI CHEUNG MD Unavailable Unavailable MEENAKSHI CHEUNG MD Unavailable Unavailable MEENAKSHI CHEUNG MD Unavailable Unavailable MEENAKSHI CHEUNG MD Unavailable Unavailable MEENAKSHI CHEUNG MD Unavailable Unavailable MEENAKSHI CHEUNG MD Unavailable Unavailable MEENAKSHI CHEUNG MD Unavailable Unavailable MEENAKSHI CHEUNG MD Unavailable Unavailable MEENAKSHI CHEUNG MD Unavailable Unavailable MEENAKSHI CHEUNG MD Unavailable Unavailable MEENAKSHI CHEUNG MD Unavailable Unavailable MEENAKSHI CHEUNG MD Unavailable Unavailable MEENAKSHI CHEUNG MD Unavailable Unavailable MEENAKSHI CHEUNG MD Unavailable Unavailable SKYE, ARRIETA MD Unavailable Unavailable SKYE, ARRIETA MD Unavailable Unavailable SKYE, ARRIETA MD Unavailable Unavailable SKYE, ARRIETA MD Unavailable Unavailable SKYE, ARRIETA MD Unavailable Unavailable SKYE, ARRIETA MD Unavailable Unavailable SKYE, ARRIETA MD Unavailable Unavailable SKYE, ARRIETA MD Unavailable Unavailable SKYE, ARRIETA MD Unavailable Unavailable SKYE, ARRIETA MD Unavailable Unavailable SKYE, ARRIETA MD Unavailable Unavailable SKYE, ARRIETA MD Unavailable Unavailable SKYE, ARRIETA MD Unavailable Unavailable Re-disclosure Warning The records that you are about to access may contain information from federally-assisted alcohol or drug abuse programs. If such information is present, then the following federally mandated warning applies: This information has been disclosed to you from records protected by federal confidentiality rules (42 CFR part 2). The federal rules prohibit you from making any further disclosure of this information unless further disclosure is expressly permitted by the written consent of the person to whom it pertains or as otherwise permitted by 42 CFR part 2. A general authorization for the release of medical or other information is NOT sufficient for this purpose. The Federal rules restrict any use of the information to criminally investigate or prosecute any alcohol or drug abuse patient.The records that you are about to access may contain highly sensitive health information, the redisclosure of which is protected by Article 27-F of the [facility] Public Health law. If you continue you may have access to information: Regarding HIV / AIDS; Provided by facilities licensed or operated by the [facility] Office of Mental Health; or Provided by the [facility] Office for People With Developmental Disabilities. If such information is present, then the following [facility] mandated warning applies: This information has been disclosed to you from confidential records which are protected by state law. State law prohibits you from making any further disclosure of this information without the specific written consent of the person to whom it pertains, or as otherwise permitted by law. Any unauthorized further disclosure in violation of state law may result in a fine or senior living sentence or both. A general authorization for the release of medical or other information is NOT sufficient authorization for further disc losure. Family History Family Member Name Family Member Gender Family Member Status Date o f Status Description Data Source(s) Unknown Unknown Problem [facility] ([facility], ) Encounters Encounter Providers Location Date Indications Data Source(s ) Outpatient [email or web address] 05/23/2020 03:35:13 PM EST [facility] Outpatient SJP-SJP 02/16/2020 06:08:55 PM EDT [facility] Outpatient [email or web address] 02/15/2020 11:02:05 AM EDT [facility] Outpatient Attender: MEENAKSHI CHEUNG MD [email or web address] 0 12:00:00 AM EDT - 12/29/2019 01:59:58 PM EDT [facility] Out[facility] 08/16/2019 08:55:00 AM EST [facility] Insurance Providers Payer name Policy type / Coverage type Policy ID Covered green party ID Covered green party's relationship to rios Policy Rios Plan Information EMEDNY [id number] SP [id number] MEDICARE [id number] SP [id number] [facility] FEDERAL EMPLOYEE PROGRAM [id number] SP [id number] EMEDNY [id number] SP [id number] [facility] FEDERAL EMPLOYEE PROGRAM [id number] SP [id number] MEDICARE [id number] SP [id number] A MEDICARE [id number] Janette [id number] MEDICAID [id number] Janette [id number] EXCELLUS BCBS [id number] Janette [id number] SELF PAY MEDICAID [id number] SP [id number] MEDICARE C [id number] S [id number] J92 MEDICAID M [id number] S [id number] [facility]AL B [id number] S [id number] MEDICARE [id number] SP [id number] A MEDICAID [id number] SP [id number] MEDICAID [id number] Self [id number] EXCELLUS C [id number] Self [id number] MEDICARE A [id number] Self [id number] J92 MEDICARE C [id number] S [id number] A MEDICAID PI PI EXCELLUS BCBS PI PI MEDICARE PI PI MEDICARE [id number] Janette [id number] [facility] FEDERAL EMPLOYEE PROGRAM [id number] SP [id number] [place] Part B [id number] Self [id number] [place] Primary [id number] Self [id number] Blue Shield Federal Medigap Part B [id number] Self [id number] [place] [id number] Self [id number] [place] Primary [id number] Self [id number] MEDICAID [id number] SP [id number] BCBS FEDERAL EMPLOYEE PROGRAM [id number] SP [id number] [place] Part B [id number] Self [id number] [place] Primary [id number] Self [id number] EXCELLUS BCBS FEDERAL [id number] SP [id number] EXCELLUS BCBS FEDERAL [id number] SP [id number] [place] Medig[place] B [id number] Self [id number] [place] Primary [id number] Self [id number] EXCELLUS BCBS FEDERAL [id number] SP [id number] Results ID Date Data Source [id number] 08/07/2020 06:12:00 AM EST [facility] Name Value Range Interpretation Code Description Data Rhonda rce(s) Supporting Document(s) SARS coronavirus 2 RNA Not Detected [facility] This lab was ordered by [facility] and reported by [facility]. ID Date Data Source [id number] 07/31/2020 07:00:00 AM EST [facility] Name Value Range Interpretation Code Description Data Rhonda rce(s) Supporting Document(s) SARS coronavirus 2 RNA Not Detected [facility] [place] This lab was ordered by [facility] and reported by [facility]. ID Date Data Source [id number] 07/24/2020 08:00:00 AM EST [facility] Name Value Range Interpretation Code Description Data Rhonda rce(s) Supporting Document(s) SARS coronavirus 2 RNA Not Detected [facility] [place] This lab was ordered by [facility] and reported by [facility]. ID Date Data Source [id number] 07/17/2020 07:36:00 AM EST [facility] Name Value Range Interpretation Code Description Data Rhonda rce(s) Supporting Document(s) SARS coronavirus 2 RNA Not Detected [facility] [place] This lab was ordered by [facility] and reported by [facility]. ID Date Data Source [id number] 07/10/2020 09:00:00 AM EST [facility] Name Value Range Interpretation Code Description Data Rhonda rce(s) Supporting Document(s) SARS coronavirus 2 RNA [facility] This lab was ordered by [facility] and reported by [facility]. ID Date Data Source [id number] 07/03/2020 10:00:00 AM EST [facility] Name Value Range Interpretation Code Description Data Rhonda rce(s) Supporting Document(s) SARS coronavirus 2 RNA [facility] This lab was ordered by [facility] and reported by [facility]. ID Date Data Source [id number] 06/26/2020 07:30:00 AM EST [facility] Name Value Range Interpretation Code Description Data Rhonda rce(s) Supporting Document(s) SARS coronavirus 2 RNA [facility] This lab was ordered by [facility] and reported by [facility]. ID Date Data Source [id number] 06/19/2020 06:15:00 AM EST [facility] Name Value Range Interpretation Code Description Data Rhonda rce(s) Supporting Document(s) SARS coronavirus 2 RNA [facility] This lab was ordered by [facility] and reported by [facility]. ID Date Data Source [id number] 06/12/2020 10:10:00 AM EST [facility] Name Value Range Interpretation Code Description Data Rhonda rce(s) Supporting Document(s) SARS coronavirus 2 RNA [facility] This lab was ordered by [facility] and reported by [facility]. ID Date Data Source [id number] 06/05/2020 11:00:00 AM EST [facility] Name Value Range Interpretation Code Description Data Rhonda rce(s) Supporting Document(s) SARS coronavirus 2 RNA [facility] This lab was ordered by [facility] and reported by [facility]. ID Date Data Source [id number] 05/29/2020 08:00:00 AM EST [facility] Name Value Range Interpretation Code Description Data Rhonda rce(s) Supporting Document(s) SARS coronavirus 2 RNA [facility] This lab was ordered by [facility] and reported by [facility]. ID Date Data Source [id number] 05/23/2020 11:55:00 AM EST [facility] Name Value Range Interpretation Code Description Data Rhonda rce(s) Supporting Document(s) SARS coronavirus 2 RNA [facility] This lab was ordered by [facility] and reported by [facility]. ID Date Data Source [id number] 02/16/2020 06:08:15 PM EDT [facility] Name Value Range Interpretation Code Description Data Rhonda rce(s) Supporting Document(s) &PDF [facility] [id number] pYy [file] [id number] ID Date Data Source [id number] 11/21/2019 08:00:00 AM EDT [facility] Name Value Range Interpretation Code Description Data Rhonda rce(s) Supporting Document(s) SARS CORONAVIRUS 2 RNA [facility] This lab was ordered by [facility] and reported by [facility]. Procedure
--- OUTSIDE RECORDS SUMMARY | 2020-08-12 11:32 | CCD ---
Author Author [facility] Organization [facility] Address Unknown Phone Unavailable Care Team Providers Care Pharmacognosy Teacher Name Role Phone MEENAKSHI CHEUNG MD Unavailable [...] Unavailable MEENAKSHI CHEUNG MD Unavailable Unavailable MEENAKSHI HCEUNG MD Unavailable Unavailable MEENAKSHI CHEUNG MD Unavailable Unavailable MEENAKSHI CHEUNG MD Unavailable Unavailable MEENAKSHI CHEUNG MD Unavailable Unavailable MEENAKSHI CHEUNG MD Unavailable Unavailable MEENAKSHI CHEUNG MD Unavailable Unavailable MEENAKSHI CHEUNG MD Unavailable Unavailable SKYEMEENAKSHI MD Unavailable Unavailable MEENAKSHI CHEUNG MD Unavailable Unavailable MEENAKSHI CHEUNG MD Unavailable Unavailable SKYEMEENAKSHI MD Unavailable Unavailable SKYE, ARRIETA MD Unavailable [...] is protected by Article 27-F of the [facility] Public Health law. If you continue you may have access to information: Regarding HIV / AIDS; Provided by facilities licensed or operated by the [facility] Office of Mental Health; or Provided by the [facility] Office for People With Developmental Disabilities. If such information is present, then the following [facility] mandated warning applies: This information has [...] law may result in a fine or usp sentence or both. A general authorization for the release of medical or other information is NOT sufficient authorization for further disc losure. Family History Family Member Name Family Member Gender Family Member Status Date o f Status Description Data Source(s) Unknown Unknown Problem [facility] ([facility], ) Encounters Encounter Providers Location Date Indications Data Source(s ) Outpatient [email or web address] 05/23/2020 03:35:13 PM EST [facility] Outpatient SJP-SJP 02/16/2020 06:08:55 PM EDT [facility] Outpatient [email or web address] 02/15/2020 11:02:05 AM EDT [facility] Outpatient Attender: MEENAKSHI CHEUNG MD [email or web address] 0 12:00:00 AM EDT - 12/29/2019 01:59:[address] [facility] Outpatient 08/16/2019 08:55:00 AM EST [facility] Radiology Imaging Insurance Providers Payer name Policy type / Coverage type Policy ID Covered green party ID Covered green party's relationship to rios Policy Rios Plan Information EMEDNY [id number] SP [id number] MEDICARE [id number] SP [id number] [facility] FEDERAL EMPLOYEE PROGRAM [id number] SP [id number] EMEDNY [id number] SP [id number] [facility] FEDERAL EMPLOYEE PROGRAM [id number] SP [id number] MEDICARE [id number] SP [id number] MEDICARE [id number] Janette [id number] MEDICAID [id number] Janette [id number] [employer]CELL[employer] [id number] Janette [id number] SELF PAY MEDICAID [id number] SP [id number] MEDICARE C [id number] S [id number] [id number] MEDICAID M [id number] S [id number] [facility] FEDERAL B [id number] S [id number] MEDICARE [id number] SP [id number] A MEDICAID [id number] SP [id number] MEDICAID M [id number] Self [id number] EXCELLUS C [id number] Self [id number] MEDICARE A [id number] Self [id number] [id number] MEDICARE C [id number] S [id number] MEDICAID PI PI EXCELLUS BCBS PI PI MEDICARE PI PI MEDICARE [id number] Janette [id number] A [facility] FEDERAL EMPLOYEE PROGRAM [id number] SP [id number] [place] [id number] Self [id number] [place] Primary [id number] Self [id number] Blue Shield Federal Medigap Part B [id number] Self [id number] [place] [id number] Self [id number] [place] Primary [id number] Self [id number] MEDICAID [id number] SP [id number] [employer] FEDERAL EMPLOYEE PROGRAM [id number] SP [id number] BC/[place] Medigap Part B [id number] Self [id number] [place] Primary [id number] Self [id number] [employer]CELL[employer] FEDERAL [id number] SP [id number] [employer]CELLUS [employer]BS FEDERAL [id number] SP [id number] BC/[place] Medigap Part B [id number] Self [id number] [place] Primary [id number] Self [id number] [employer] FEDERAL [id number] SP [id number] Results ID Date Data Source [id number] 08/07/2020 06:12:00 AM EST [facility] Name Value Range Interpretation Code Description Data Rhonda rce(s) Supporting Document(s) SARS coronavirus 2 RNA Not Detected [facility] [place] This lab was ordered by [facility] and reported by [facility]. ID Date Data Source [id number] 07/31/2020 07:00:00 AM EST [facility] Name Value Range Interpretation Code Description Data Rhonda rce(s) Supporting Document(s) SARS coronavirus 2 RNA Not Detected [facility] [place] This lab was ordered by [facility] and reported by [facility]. ID Date Data Source [id number] 07/24/2020 08:00:00 AM EST [facility] Name Value Range Interpretation Code Description Data Rhonda rce(s) Supporting Document(s) SARS coronavirus 2 RNA Not Detected [facility] [place] This lab was ordered by [facility] and reported by [facility]. ID Date Data Source [id number] 07/17/2020 07:36:00 AM EST [facility] Name Value Range Interpretation Code Description Data Rhonda rce(s) Supporting Document(s) SARS coronavirus 2 RNA Not Detected [facility] [place] This lab was ordered by [facility] and reported by [facility]. ID Date Data Source [id number] 07/10/2020 09:00:00 AM EST [facility] Name Value Range Interpretation Code Description Data Rhonda rce(s) Supporting Document(s) SARS coronavirus 2 RNA [facility] This lab was ordered by [facility] and reported by [facility]. ID Date Data Source [id number] 07/03/2020 10:00:00 AM EST [facility] Name Value Range Interpretation Code Description Data Rhonda rce(s) Supporting Document(s) SARS coronavirus 2 RNA [facility] This lab was ordered by [facility] and reported by [facility]. ID Date Data Source [id number] 06/26/2020 07:30:00 AM EST [facility] Name Value Range Interpretation Code Description Data Rhonda rce(s) Supporting Document(s) SARS coronavirus 2 RNA [facility] This lab was ordered by [facility] and reported by [facility]. ID Date Data Source [id number] 06/19/2020 06:15:00 AM EST [facility] Name Value Range Interpretation Code Description Data Rhonda rce(s) Supporting Document(s) SARS coronavirus 2 RNA [facility] This lab was ordered by [facility] and reported by [facility]. ID Date Data Source [id number] 06/12/2020 10:10:00 AM EST [facility] Name Value Range Interpretation Code Description Data Rhonda rce(s) Supporting Document(s) SARS coronavirus 2 RNA [facility] This lab was ordered by [facility] and reported by [facility]. ID Date Data Source [id number] 06/05/2020 11:00:00 AM EST [facility] Name Value Range Interpretation Code Description Data Rhonda rce(s) Supporting Document(s) SARS coronavirus 2 RNA [facility] This lab was ordered by [facility] and reported by [facility]. ID Date Data Source [id number] 05/29/2020 08:00:00 AM EST [facility] Name Value Range Interpretation Code Description Data Rhonda rce(s) Supporting Document(s) SARS coronavirus 2 RNA [facility] This lab was ordered by [facility] and reported by [facility]. ID Date Data Source [id number] 05/23/2020 11:55:00 AM EST [facility] Name Value Range Interpretation Code Description Data Rhonda rce(s) Supporting Document(s) SARS coronavirus 2 RNA [facility] This lab was ordered by [facility] and reported by [facility]. ID Date Data Source [id number] 02/16/2020 06:08:15 PM EDT [facility] Name Value Range Interpretation Code Description Data Rhonda rce(s) Supporting Document(s) &PDF [facility] KWDBLg0fXdJPSwDq46/AFZupSMBve8GrIJbxSBk4CTjpQUHcG9BlxVdlEKMXFaxOEmoOSITASTOdBLzb pYy [file] ICAgICAgICAgICAgICAgICAgICAgICAgICAgICAgICAgICAgICAgICAgICAgICAgICAgICAgICANCiAg ICAgICAgICAgICAgICAgICAgICAgICAgICAgICAgIC AgICAgICAgICAgICAgICAgICAgICAgICAgICAgICAgICAgICAgICAgICAgICAgICAgICAgICAgICAgIC AgICAgICANCiAgICAgICAgICAgICAgICAgICAgICAgICAgICAgICAgICAgICAgICAgICAgICAgICAgIC AgICAgICAgICAgICAgICAgICAgICAgICAgICAgICAg ICAgICAgICAgICAgICAgICANCiAgICAgICAgICAgICAgICAgICAgICAgICAgICAgICAgICAgICAgICAg ICAgICAgICAgICAgICAgICAgICAgICAgICAgICAgICAgICAgICAgICAgICAgICAgICAgICAgICAgICAN CiAgICAgICAgICAgICAgICAgICAgICAgICAgICAgIC AgICAgICAgICAgICAgICAgICAgICAgICAgICAgICAgICAgICAgICAgICAgICAgICAgICAgICAgICAgIC AgICAgICAgICANCiAgICAgICAgICAgICAgICAgICAgICAgICAgICAgICAgICAgICAgICAgICAgICAgIC AgICAgICAgICAgICAgICAgICAgICAgICAgICAgICAg ICAgICAgICAgICAgICAgICAgICANCiAgICAgICAgICAgICAgICAgICAgICAgICAgICAgICAgICAgICAg ICAgICAgICAgICAgICAgICAgICAgICAgICAgICAgICAgICAgICAgICAgICAgICAgICAgICAgICAgICAg ICANCiAgICAgICAgICAgICAgICAgICAgICAgICAgIC AgICAgICAgICAgICAgICAgICAgICAgICAgICAgICAgICAgICAgICAgICAgICAgICAgICAgICAgICAgIC AgICAgICAgICAgICANCiAgICAgICAgICAgICAgICAgICAgICAgICAgICAgICAgICAgICAgICAgICAgIC AgICAgICAgICAgICAgICAgICAgICAgICAgICAgICAg ICAgICAgICAgICAgICAgICAgICAgICANCiAgICAgICAgICAgICAgICAgICAgICAgICAgICAgICAgICAg ICAgICAgICAgICAgICAgICAgICAgICAgICAgICAgICAgICAgICAgICAgICAgICAgICAgICAgICAgICAg ICAgICANCjw/vMSbV1kyeTEseiE2F7qhVb8INn5OLQ 8kr9HtHNSiIWarisSyBahTQkUxJQAfNeyQVdk5SXmfFL1TcUCzI3VrH7FzEGznQU4WBWHoMYJqcMOaHC YsQEIfUyD9CIXpWVfkBE9AvVWoLZskOAFoZFLtKU0EKNOoD849dqQlTY6HLt4SCaCyTB7ved5KIYAhQN LyKdcLJaq1XDunRQ9YeZYoS8NncMQio0vWMdLpW5YX QRV3UFZuQr4HHGKsUtEoLAYkKHduGQ3iPNImYDZDlAsqmtA6LC2SXV5izoEeYR4YPdOhCx9sBj2CNuFn E9ZiX9ItAMHjQVAMFIlpFH6XTLFeNHJ7QZZgIODbGHAKPzPnO85uBB1HA9Onz67rAaL0VBXbHcBqXLnz JB14yMxxecWoeLTjeIkcGZ7EUn2+DQplbmRvYmoNCn klHBJSPzBwLPoIAbSoLNZnHSMeRYJyUbI9NgZpKf7VWFHgDWUcRSOcPxRzEMEtNWItCCcbDBLlLOK4JE e0OHDiKZSyTA9FTbVjHIAuETZvRvbvUYYmEFPkcc8WTZZjEFSlXAM6PUJiWZKrOVWfAJdlBPFhHRNvGE h2DUZoQVMeTV3BQmHvPAHeVCNfFCHbNTYtTFGxnh3T PAGlZMCuMVD3OSOsVYBlBBFdIJwqHSLkXNV9IcA1RDQtIZQgPX9NBaEwZQMhUJN5VMkwOQVjXBWhcr1O BYCxDDAtTKB1DHCkLNFqPQPeVYdeBTJhJOT0QSc0OIImSWDnOT8MDdNkWSTxDNI8BaNaEPPvVMNcmn2A ELToDZSxMDW8StGqKFLkTQUvKXalGJMtROU4ERc6KW QoNLOdVO9YMmCxCQHjRWD2UElaCMPrSJCpck1KBUAcRJMnWeQxKwCsCSBiAUVsPKt9jzRteAOxQXb9JB 6QI0TxqaCzLShGKm3Mv486CZH4FYDtUj1UC4sgRu9cTBDxDQATTl4SNQx7BqslMGZ3X2RwWCOcYaUhSD JnKPSqRnqcSSR8ZeNvJqV+EDf5WYS2WrAhXHE3GhI6 AoNkCnNeBTS9INJ3MgQfBKEaUF1mLGBNGh1+IQruhGLruGyqDPOLNpB4TRMtUIifKWNJMe3Z ID Date Data Source [id number] 11/21/2019 08:00:00 AM EDT [facility] Name Value Range Interpretation Code Description Data Rhonda rce(s) Supporting Document(s) SARS CORONAVIRUS 2 RNA [facility] This lab was ordered by [facility] and reported by [facility]. Procedure
--- NOTE | 2020-08-12 11:46 | REP ---
INDICATION: trauma. COMPARISON: Right hip 08/12/2020. TECHNIQUE: Single-view pelvis performed. FINDINGS: Again noted is a fracture of the right femoral neck. I see no other evidence of acute fracture or dislocation. Bowel gas and fecal material limits evaluation of the sacrum. There are mild degenerative changes at the sacroiliac joints and hip joints. IMPRESSION: Right femoral neck fracture. Mild displacement. <Electronically signed by Hugo Hudson > 08/12/20 114
--- NOTE | 2020-08-12 11:49 | REP ---
INDICATION: trauma. COMPARISON: 05/21/2018. TECHNIQUE: SINGLE PORTABLE AP VIEW OF THE CHEST WAS PERFORMED. FINDINGS: There is no evidence of acute infiltrate. There is cardiomegaly again noted. There is calcification and tortuosity of the thoracic aorta. The mediastinal silhouette is otherwise unremarkable.There are degenerative changes of the spine. IMPRESSION: NO ACUTE PULMONARY DISEASE. <Electronically signed by Hugo Hudson > 08/12/20 1146
[2020-08-12] MEDS ORDERED: ROSU10TA6 PO (11:55)
[2020-08-12] MEDS ORDERED: CIME-49 PO (11:55)
[2020-08-12] MEDS ORDERED: BISO5TAB14 PO (11:55)
[2020-08-12] MEDS ORDERED: NITR4TASL SL (11:55)
[2020-08-12] MEDS ORDERED: MYLASSUD GT (11:55)
[2020-08-12] MEDS ORDERED: MOM30SS2 PO (11:55)
[2020-08-12] MEDS ORDERED: FURO20TA2 PO (11:55)
[2020-08-12] MEDS ORDERED: TRIA1CR80 TOP (11:55)
[2020-08-12 12:05] LABS: HEMATOCRIT 48.1 % (42.0-52.0); HEMOGLOBIN 15.6 g/dl (13.5-17.5); MEAN CORPUSCULAR HEMOGLOBIN 30.6 pg (27.0-33.0); MEAN CORPUSCULAR HGB CONC 32.4 g/dl (32.0-36.5); MEAN CORPUSCULAR VOLUME 94.5 fl (80.0-96.0); PLATELET COUNT, AUTOMATED 160 10^3/uL (150-450); RED BLOOD COUNT 5.09 10^6/uL (4.30-6.10); WHITE BLOOD COUNT 9.2 10^3/uL (4.0-10.0)
[2020-08-12 12:09] LABS: RSV AMPLIFICATION NEGATIVE (NEGATIVE)
[2020-08-12 12:19] LABS: INR 1.06
[2020-08-12 12:20] LABS: PARTIAL THROMBOPLASTIN TIME 35.4 SECONDS (24.2-38.5)
[2020-08-12 12:34] LABS: BLOOD UREA NITROGEN 24 MG/DL (7-18); CARBON DIOXIDE LEVEL 32 MEQ/L (21-32); CHLORIDE LEVEL 103 MEQ/L (98-107); CK-MB VALUE MASS 2.9 NG/ML (<3.6); CPK CREATINE PHOSPHOKINASE 194 U/L (39-308); GLOMERULAR FILTRATION RATE 38.6 (>35); GLUCOSE, FASTING 113 MG/DL (70-100); MB/CK RELATIVE INDEX 1.49 (< OR =4); POTASSIUM SERUM 4.5 MEQ/L (3.5-5.1); SODIUM LEVEL 140 MEQ/L (136-145); TROPONIN I < 0.02 NG/ML (< 0.10)
[2020-08-12] MEDS ORDERED: NS 1,000 ML IV SCH (12:49)
--- NOTE | 2020-08-12 12:55 | HPEPDOC ---
[facility] Medical History & Physical Date of Admission Aug 12, 2020 Date of Service: Aug 12, 2020 Attending Physician: Christy Flores MD History and Physical CHIEF COMPLAINT: fall, hip pain HISTORY OF PRESENT ILLNESS: Patient is an 80-year-old male with past medical history of coronary artery disease status post stenting 2018, CVA, moderatesevere pulmonary hypertension, severe aortic stenosis, Parkinson's disease, atrial fibrillation chronic with watchman device, dysphagia, carotid stenosis who presented to [facility] emergency room after a fall here today. Patient states he was putting on his h ands today when he got tangled up in his clothing fell to the side. He immediately felt right hip pain. He denied any lightheadedness, dizziness, loss of consciousness, chest pain, shortness of breath, fevers, chills, nausea, vomiting. He recently had a second dose of Covid 19 vaccination which hadn't feeling a little under the weather but other than that he has no complaints. Room hip x-ray showed right mildly displaced femoral neck fracture.Labs were unremarkable aside from a creatinine of 1.8. Baseline creatinine appears to be 1.41.5 over the past several months. ECG showed atrial fibrillation, chronic. Troponin negative. Due to extensive cardiac history, cardiology was called and the patient's case was discussed in great detail. The patient was deemed to be high risk for this intermediate surgery. The patient was admitted under medicine service for mildly displaced right femoral neck fracture with orthopedic surgery and cardiology consult to see while inpatient. REVIEW OF SYSTEMS: Neg except for what is mentioned above PAST MEDICAL HISTORY: coronary artery disease status post stenting 2018 CVA moderatesevere pulmonary hypertension severe aortic stenosis Parkinson's disease atrial fibrillation chronic with watchman device dysphagia carotid stenosis PAST SURGICAL HISTORY: Cardiac stenting 2018 (LAD, circumflex) Watchman device placement PM placement FAMILY HISTORY: Noncontributory SOCIAL HISTORY: Prior smoker for 5 years, quit 30/40 years ago, smoked less than 1 pack per day. Denies alcohol or drug use. Follows regularly with his primary doctor and his jacket preparer is Dr. Duarte. He is a full code. ALLERGIES: Please see below. HOME MEDICATIONS: Please see below. PHYSICAL EXAMINATION: VS: please see below CONSTITUTIONAL: No acute distress, resting comfortably, AAO x 3 EYES: PERRLA, EOM intact HENT, MOUTH: Normocephalic, atraumatic, moist mucous membranes, NECK: SUPPLE, no JVD, no lymphadenopathy, no carotid bruit CV: Regular rate and rhythm, S1S2 normal, no murmurs/rubs/gallops RESPIRATORY: Clear to auscultation bilaterally, no rales/rhonchi/wheezes GI: BS positive in 4 quadrants, soft, nontender, nondistended, no rebound or guarding, no organomegaly : Deferred MUSCULOSKELETAL: ROm not tested for RLE/hip, normal ROM of all other ext. No cyanosis, clubbing, swelling, joint deformity, extremity edema INTEGUMENTARY: PVD skin changes in b/l lower ext. Otherwise Intact, no rashes, no lesions, no erythema NEUROLOGIC: Cranial Nerves II-XII are intact, no focal deficits PSYCHIATRIC: Mood and affect are normal LABORATORY DATA: Please see below IMAGING: Hip XR right: Right femoral neck fracture. Mild displacement. Last echocardiogram 2019: MAG 48 EF 50-55% severe ASSESSMENT: 80-year-old male with past medical history of coronary artery disease status post stenting 2018, CVA, moderatesevere pulmonary hypertension, severe aortic stenosis, Parkinson's disease, atrial fibrillation chronic with watchman device, dysphagia, carotid stenosis admitted under medicine service for mildly displaced right femoral neck fracture with orthopedic surgery and cardiology consult to see while inpatient. PLAN: Right mildly displaced femoral neck fracture s/p mechanical fall -XR above -Pain control with IV morphine -Patient is HIGH risk for intermediate risk surgery. RCRI score: 4 points, Class IV risk. -Patient is AAOx 3, able to do his own consent if it is for surgery. -Discussed case with Dr. Dumont (orthopedic surgery), Dr. Savage (cardiology) both of whom will see while inpatient -Please be careful with too much FLUID with this patient as he has severe . CVA -C/w ASA when ok by surgery, statin CAD s/p stenting -No chest pain, SOB, diaphoresis -ECG baseline, trop neg -C/w BB, ASA (when ok if has surgery), statin, pain control with morphine -Cardiology to see Severe -Last echo above -Per cardiology, did not wish to proceed with TAVR due to needing to have PEG tube first - he refused -C/w medical management Mod-severe pulmonary HTN -Holding lasix for now, C/w other home meds Chronic atrial fib -Currently rate controlled -C/w BB with holding parameters, not on AC other than ASA daily Parkinson's disease -Stable -C/w Sinemet Chronic kidney disease -Cr 1.8 today, baseline 1.4-1.5 -Currently on very gentle IVF hydration -F/u AM labs, holding lasix for now Dysphagia, chronic -NPO currently for possible surgery -When taking diet, Pureed diet with honey thickened fluids DVT px -SCD for now while deciding on surgery. If NOT going to surgery, please place on prophylactic heparin SC. DISPOSITION: Admitted under inpatient status. Plan is consult by ortho, cardi ology and will possibly go to surgery (decision is not made yet). FULL CODE with MOLST in chart Vital Signs Vital Signs Date Time Temp Pulse Resp B/P (MAP) Pulse Ox O2 Delivery O2 Flow Rate FiO2 08/12/20 10:53 97.2 67 15 166/81 (109) 96 Room Air Laboratory Data Labs 24H Laboratory Tests 2 08/12/20 11:25: Nucleated Red Blood Cells % (auto) 0.0, Prothrombin Time 14.0, Prothromb Time International Ratio 1.06, Activated Partial Thromboplast Time 35.4, Anion Gap 5L, Glomerular Filtration Rate 38.6, Calcium Level 9.0, Total Creatine Kinase 194, Creatine Kinase MB 2.9, Creatine Kinase MB Relative Index 1.49, Troponin I < 0.02, Coronavirus (COVID-19)(PCR) NEGATIVE, Influenza Type A (RT-PCR) NE GATIVE, Influenza Type B (RT-PCR) NEGATIVE, Respiratory Syncytial Virus (PCR) NEGATIVE CBC/BMP Laboratory Tests 08/12/20 11:25 Home Medications Scheduled Aspirin (Aspirin) 81 Mg Chw, 81 MG PO DAILY Bisoprolol Fumarate (Bisoprolol Fumarate) 5 Mg Tablet, 2.5 MG PO DAILY Carbidopa/Levodopa (Sinemet 25-100 mg Tablet) 1 Tab Tab, 1 TAB PO QID 0800/1200/1600/2000 Cimetidine (Cimetidine) 400 Mg Tablet, 400 MG PO TID Furosemide (Furosemide) 20 Mg Tablet, 20 MG PO DAILY Rosuvastatin Calcium (Rosuvastatin Calcium) 10 Mg Tablet, 10 MG PO 3XW MON/WED/FRI Triamcinolone Acet (Triamcinolone Acetonide 0.1% Crm) 80 Gm Cream..g., 1 APLCT TOP BID APPLY TO LEFT ARM Scheduled PRN Acetaminophen (Acetaminophen) 325 Mg Tab, 650 MG PO Q4H PRN for PAIN Aluminum/Magnesium/Simeth (Mag-Al Plus Suspension) 30 Ml Oral.susp, 30 ML GT Q4H PRN for INDIGESTION Bisacodyl (Dulcolax) 10 Mg Sup, 10 MG MS DAILY PRN for CONSTIPATION Magnesium Hydroxide (Milk of Magnesia) 400 Mg/5 Ml Oral.susp, 2,400 MG PO DAILY PRN for CONSTIPATION Nitroglycerin (Nitrostat) 0.4 Mg Tab.subl, 0.4 MG SL Q5MP PRN for CHEST PAIN Sodium Phosphate,Mitchell-Dibasic (Enema Xbzid-Kd-Mbe) 1 Malika Malika, 1 MALIKA MS DAILY PRN for CONSTIPATION Allergies Coded Allergies: No Known Allergies (Unverified , 08/12/20) A-FIB/CHADSVASC A-FIB History Current/History of A-Fib/PAF?: Yes Current PO Anticoag Therapy: No Age/Risk Factor Scoring CHADSVASC: CHADSVASC Response (Comments) Value Age Risk Factor Age >/= 75 years old 2 Gender Risk Factor Male 0 Hx of CHF Yes 1 Hx of HTN Yes 1 Hx of Stroke/TIA/or VTE Yes 2 Hx of Diabetes No 0 Hx of Vascular Disease No 0 Total 6 Treatment Treatment ordered: Other Other anticoagulant ordered: scd Christy Flores MD Aug 12, 2020 12:55
[2020-08-12] MEDS ORDERED: ACETAMINOPHEN TAB 650MG DOSE (2X325MG) PO PRN (13:00)
[2020-08-12] MEDS: SINEMET 25-100 MG TAB PO SCH ×3 (13:00→21:04)
[2020-08-12] MEDS ORDERED: MORPHINE 2 MG/ML 1ML VIAL (J2270) IV PRN (13:00)
[2020-08-12] MEDS ORDERED: FLEET ENEMA PR PRN (13:00)
[2020-08-12] MEDS ORDERED: NITROGLYCERIN 0.4 MG SUBL TABLET SL PRN (13:00)
[2020-08-12] MEDS ORDERED: BISACODYL 10 MG SUPP PR PRN (13:00)
[2020-08-12] MEDS ORDERED: MAALOX 30 ML SUSP *UDC GT PRN (13:00)
--- OUTSIDE RECORDS SUMMARY | 2020-08-12 13:25 | CCD ---
Author Author [facility] Organization [facility] Address Unknown Phone Unavailable Care Team Providers Care Sheriff Detective Name Role Phone MEENAKSHI CHEUNG MD Unavailable [...] is protected by Article 27-F of the [facility] Public Health law. If you continue you may have access to information: Regarding HIV / AIDS; Provided by facilities licensed or operated by the [facility] Office of Mental Health; or Provided by the [facility] Office for People With Developmental Disabilities. If such information is present, then the following [facility] mandated warning applies: This information has been [...] law may result in a fine or custodial sentence or both. A general authorization for the release of medical or other information is NOT sufficient authorization for further disc losure. Family History Family Member Name Family Member Gender Family Member Status Date o f Status Description Data Source(s) Unknown Unknown Problem [facility] ([facility], ) Encounters Encounter Providers Location Date Indications Data Source(s ) Outpatient [email or web address] 05/23/2020 03:35:13 PM EST [facility] Outpatient SJP-SJP 02/16/2020 06:08:55 PM EDT [facility] Outpatient [email or web address] 02/15/2020 11:02:05 AM EDT [facility] Outpatient Attender: MEENAKSHI CHEUNG MD [email or web address] 0 12:00:00 AM EDT - 12/29/2019 01:59:58 PM EDT [facility] Outpatient 08/16/2019 08:55:00 AM EST [facility] Insurance Providers Payer name Policy type / Coverage type Policy ID Covered constitution party ID Covered constitution party's relationship to rios Policy Rios Plan Information EMEDNY [id number] SP [id number] MEDICARE [id number] SP [id number] [facility] FEDERAL EMPLOYEE PROGRAM [id number] SP [id number] EMEDNY [id number] SP [id number] [facility] FEDERAL EMPLOYEE PROGRAM [id number] SP [id number] MEDICARE [id number] SP [id number] MEDICARE [id number] Janette [id number] MEDICAID [id number] Janette [id number] EXCELLUS BCBS [id number] Janette [id number] SELF PAY MEDICAID [id number] SP [id number] MEDICARE C [id number] S [id number] MEDICAID M [id number] S [id number] [facility] FEDERAL B [id number] S [id number] MEDICARE [id number] SP [id number] A MEDICAID [id number] SP [id number] MEDICAID M [id number] Self [id number] EXCELLUS C [id number] Self [id number] MEDICARE A [id number] Self [id number] [id number] MEDICARE C [id number] S [id number] A MEDICAID PI PI EXCELLUS BCBS PI PI MEDICARE PI PI MEDICARE [id number] Janette [id number] A [facility] FEDERAL EMPLOYEE PROGRAM [id number] SP [id number] [place] B [id number] Self [id number] [place] Primary [id number] Self [id number] Blue Shield Federal Medigap Part B [id number] Self [id number] [place] [id number] Self [id number] [place] Primary [id number] Self [id number] MEDICAID [id number] SP [id number] [employer] FEDERAL EMPLOYEE PROGRAM [id number] SP [id number] BC/[place] Medigap Part B [id number] Self [id number] [place] Primary [id number] Self [id number] EXCELL[employer]BS FEDERAL [id number] SP [id number] [employer]LLUS [employer]BS FEDERAL [id number] SP [id number] BC/[place] Medigap Part B [id number] Self [id number] [place] Primary [id number] Self [id number] [employer]BS FEDERAL [id number] SP [id number] Results ID Date Data Source [id number] 08/07/2020 06:12:00 AM EST [facility] Name Value Range Interpretation Code Description Data Rhonda rce(s) Supporting Document(s) SARS coronavirus 2 RNA Not Detected [facility] [place] This lab was ordered by [facility] and reported by [facility]. ID Date Data Source [id number] 07/31/2020 07:00:00 AM EST [facility] Name Value Range Interpretation Code Description Data Rhonda rce(s) Supporting Document(s) SARS coronavirus 2 RNA Not Detected [facility] [place] This lab was ordered by [facility] and reported by [facility]. ID Date Data Source [id number] 07/24/2020 08:00:00 AM EST [facility] Name Value Range Interpretation Code Description Data Rhonda rce(s) Supporting Document(s) SARS coronavirus 2 RNA Not Detected [facility] [place] This lab was ordered by [facility] and reported by [facility]. ID Date Data Source [id number] 07/17/2020 07:36:00 AM EST [facility] Name Value Range Interpretation Code Description Data Rhonda rce(s) Supporting Document(s) SARS coronavirus 2 RNA Not Detected [facility] [place] This lab was ordered by [facility] and reported by [facility]. ID Date Data Source [id number] 07/10/2020 09:00:00 AM EST [facility] Name Value Range Interpretation Code Description Data Rhonda rce(s) Supporting Document(s) SARS coronavirus 2 RNA [facility] This lab was ordered by [facility] and reported by [facility]. ID Date Data Source [id number] 07/03/2020 10:00:00 AM EST [facility] Name Value Range Interpretation Code Description Data Rhonda rce(s) Supporting Document(s) SARS coronavirus 2 RNA [facility] This lab was ordered by [facility] and reported by [facility]. ID Date Data Source [id number] 06/26/2020 07:30:00 AM EST [facility] Name Value Range Interpretation Code Description Data Rhonda rce(s) Supporting Document(s) SARS coronavirus 2 RNA [facility] This lab was ordered by [facility] and reported by [facility]. ID Date Data Source [id number] 06/19/2020 06:15:00 AM EST [facility] Name Value Range Interpretation Code Description Data Rhonda rce(s) Supporting Document(s) SARS coronavirus 2 RNA [facility] This lab was ordered by [facility] and reported by [facility]. ID Date Data Source [id number] 06/12/2020 10:10:00 AM EST [facility] Name Value Range Interpretation Code Description Data Rhonda rce(s) Supporting Document(s) SARS coronavirus 2 RNA [facility] This lab was ordered by [facility] and reported by [facility]. ID Date Data Source [id number] 06/05/2020 11:00:00 AM EST [facility] Name Value Range Interpretation Code Description Data Rhonda rce(s) Supporting Document(s) SARS coronavirus 2 RNA [facility] This lab was ordered by [facility] and reported by [facility]. ID Date Data Source [id number] 05/29/2020 08:00:00 AM EST [facility] Name Value Range Interpretation Code Description Data Rhonda rce(s) Supporting Document(s) SARS coronavirus 2 RNA [facility] This lab was ordered by [facility] and reported by [facility]. ID Date Data Source [id number] 05/23/2020 11:55:00 AM EST [facility] Name Value Range Interpretation Code Description Data Rhonda rce(s) Supporting Document(s) SARS coronavirus 2 RNA [facility] This lab was ordered by [facility] and reported by [facility]. ID Date Data Source [id number] 02/16/2020 06:08:15 PM EDT [facility] Name Value Range Interpretation Code Description Data Rhonda rce(s) Supporting Document(s) &PDF [facility] PTCCDo1dTiFCGnTv67/SLBhgMGHnx1ViHIrbJQr9KToyPIMnT3EazQtyIIBJQxzVWquDHTSNGGTeVUzp pYy [file] ICAgICAgICAgICAgICAgICAgICAgICAgICAgICAgICAgICAgICAgICAgICAgICAgICAgICAgICANCiAg ICAgICAgICAgICAgICAgICAgICAgICAgICAgICAgIC AgICAgICAgICAgICAgICAgICAgICAgICAgICAgICAgICAgICAgICAgICAgICAgICAgICAgICAgICAgIC AgICAgICANCiAgICAgICAgICAgICAgICAgICAgICAgICAgICAgICAgICAgICAgICAgICAgICAgICAgIC AgICAgICAgICAgICAgICAgICAgICAgICAgICAgICAg ICAgICAgICAgICAgICAgICANCiAgICAgICAgICAgICAgICAgICAgICAgICAgICAgICAgICAgICAgICAg ICAgICAgICAgICAgICAgICAgICAgICAgICAgICAgICAgICAgICAgICAgICAgICAgICAgICAgICAgICAN CiAgICAgICAgICAgICAgICAgICAgICAgICAgICAgIC AgICAgICAgICAgICAgICAgICAgICAgICAgICAgICAgICAgICAgICAgICAgICAgICAgICAgICAgICAgIC AgICAgICAgICANCiAgICAgICAgICAgICAgICAgICAgICAgICAgICAgICAgICAgICAgICAgICAgICAgIC AgICAgICAgICAgICAgICAgICAgICAgICAgICAgICAg ICAgICAgICAgICAgICAgICAgICANCiAgICAgICAgICAgICAgICAgICAgICAgICAgICAgICAgICAgICAg ICAgICAgICAgICAgICAgICAgICAgICAgICAgICAgICAgICAgICAgICAgICAgICAgICAgICAgICAgICAg ICANCiAgICAgICAgICAgICAgICAgICAgICAgICAgIC AgICAgICAgICAgICAgICAgICAgICAgICAgICAgICAgICAgICAgICAgICAgICAgICAgICAgICAgICAgIC AgICAgICAgICAgICANCiAgICAgICAgICAgICAgICAgICAgICAgICAgICAgICAgICAgICAgICAgICAgIC AgICAgICAgICAgICAgICAgICAgICAgICAgICAgICAg ICAgICAgICAgICAgICAgICAgICAgICANCiAgICAgICAgICAgICAgICAgICAgICAgICAgICAgICAgICAg ICAgICAgICAgICAgICAgICAgICAgICAgICAgICAgICAgICAgICAgICAgICAgICAgICAgICAgICAgICAg ICAgICANCjw/cDYpW9xddPVsjkA6I7xxVp4LBs9YRD 2fw2BlXOUvKNmknuDnOgfXDxFpLNMoMssSLcv9GOnjGH0HnUMaB3XrD2BrOGvoMU6MVTCdQYVlaMBzHN SiDUOsZnK0XHPsKBdmIW9MiTZuDWejNQMgUEXfWB4UPLMsU420asGkBI5FRj1NPiQlSY9pnq6CHJEbKL YiCesVTpn8XRwxHU0QeWPtZ3KxnXBue8gERlZqI8FS AVT0JJMiZo2MVONvUvCbKSYzSCnlZZ7vBAUqVYVVaSeocqD7PT2ZEO6otnZlTV1EFmYgMf2bMx0QRwIa K3BlV3BvVSCsIORYNJkhFY7HYMXtKNJ1HSFvWWYbQZLHXbInD72jUZ4CG2Aol79zXjC4ESOeTuBxQDho WS09rMivhvTvsGPxdNkuAF2XRi4+DQplbmRvYmoNCn vpELDJRkRtKZmRTdIbQXBlVVTeLJEeMgW3CmUpKk6JILYhUBNhRRLeWmKcSWGuEPThUGamELDuCYP3KD n6YZZcODSjNU0UXkAdVPRsUKVfHydpXLPgKOEdcb4YTTOrDXTqBLA7RDRiLPIoNARgOXjnEPDyFOHsKR k0ZDLzXAHkOM7EBsWnMEYgCFYiMIEpLHZrFMUjnt0B CQDwKJWzNEN8RIWwTWXxYBRiOKttHKEeQJX1ZaG3OVOcKDWqTO8GJtHuIXYlNUW7HMglGSJlXEWoss0L PCYbYXOqROM7FTKqQNAzWSUoSRkgCETdPJA4EPd5VZVyRJKzGV6JHcBaDZRfEUY5HkNpMQKeOQArfd7K PDIgLBTdLGT8AkByDMPsJRUkJRloFJRiJTJ3LKb6HY OnQBYsBR8MFqDbBOWxOYX6WKubXOOyTYPiov6IIZMbZAUoNxVnEzEjWJRnQNNiATt9xpKyiMFdVUj1QL 8CN3LhunIbNMsKMa7Ly582YIL4HOXeNc5EI8zcXh8dSCToNEVVTm9RUYe1KqpnFRL8L1ZcWIEoAlNsEV MsIYEvZvjbINO4NnKsUrB+BNk5QFQ7HoCvBZY5XoJ2 RnVyJaLzMJH8NZT0PyUnCNIdDS9vGDXEZk4+LKpaaUCusMrxOKAVQkE6NIDjJRhwDUGQWd8Y ID Date Data Source [id number] 11/21/2019 08:00:00 AM EDT [facility] Name Value Range Interpretation Code Description Data Rhonda rce(s) Supporting Document(s) SARS CORONAVIRUS 2 RNA [facility] This lab was ordered by [facility] and reported by [facility]. Procedure
[2020-08-12 14:00] VITALS: BP 139/83
[2020-08-12] MEDS: MORPHINE 2 MG/ML 1ML VIAL (J2270) IV PRN ×2 (14:45→21:04)
--- NOTE | 2020-08-12 19:50 | CR ---
CONSULTATION DATE: 08/12/2020 REFERRING PHYSICIAN: Dr. Flores INDICATION: Preoperative clearance for hip pinning. HISTORY OF PRESENT ILLNESS: Mr. Cole is previously unknown to me but he is a patient of my partner, Dr. Duarte. He does have a multitude of cardiac problems that include chronic atrial fibrillation, coronary artery disease and severe aortic stenosis. He tripped while putting on his pants earlier today, fell and broke his right hip. Tentatively there is a plan for right hip pinning, I expect within the next day or so. The patient at his baseline is a [facility] resident. He tells me that he walks several times a day with a walker relatively slowly but denies any chest pain, shortness of breath or sensation of palpitations. He also denies any syncopal events. He does have coronary artery disease. Cardiac catheterization in 2018 reveals severe three-vessel CAD and he received two-vessel stenting to LAD and left circumflex. At the same time, he was found to have severe aortic stenosis. There was tentative plan for transaortic valve replacement but because he had dysphagia and was felt to be very high risk for aspiration, it was recommended that prior to TAVR, he undergoes PEG tube placement which patient refused. Consequently the surgery was not performed. He has been treated medically since. He also has chronic atrial fibrillation, has a pacemaker which is intracardiac Micra Medtr[employer] device that has been programming VVI mode at 60 beats per minute. He has been monitored in our office and has been confirmed to have normal function. PAST MEDICAL HISTORY: 1. Coronary artery disease as above. 2. Chronic atrial fibrillation. 3. Severe aortic stenosis. 4. Last echocardiogram was performed in May,, revealed normal LVEF estimated around 50-55%, there was left ventricular hypertrophy, approximately moderate mitral insufficiency and severe aortic stenosis. Measured gradient across the aortic valve was 48 mmHg at its mean and 71 mmHg at its peak. There was evidence for pulmonary hypertension even though I do not see any comments regarding is severity based on echocardiogram report. 5. Parkinson's disease. 6. Dysphagia. 7. Carotid artery stenosis. 8. Hypertension. 9. Dyslipidemia. 10. History of Watchman procedure. 11. Obesity. 12. Reflux. 13. Degenerative joint disease. SURGICAL HISTORY: 1. PCI in 2018. 2. Watchman device placement and pacemaker placement also in 2018. OUTPATIENT MEDICATIONS: 1. Tylenol as needed. 2. Allopurinol 200 mg a day. 3. Aspirin 81 mg a day. 4. Eye drops. 5. Zebeta 2.5 mg a day. 6. Sinemet 25/100 one tablet four times a day. 7. Pepcid 10 mg twice a day. 8. Multivitamin. ALLERGIES: No allergies. SOCIAL HISTORY: The patient is a [facility] resident. He denies any history of alcohol or cigarettes in many years. He is . He has two children who live in the area. 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 FAMILY HISTORY: No longer relevant considering his advanced age. REVIEW OF SYSTEMS: He denies any recent fever, chills, nausea, vomiting, diarrhea, denies chest pain or shortness of breath. He is able to ambulate with a walker, probably about 50 feet or more based on his description. No abdominal pain, no nausea, vomiting, no genitourinary symptoms. He denies any recent bleeding problems. He denies peripheral edema. He denies any typical claudications. PHYSICAL EXAMINATION: Mr. Cole is an elderly man. He is obese, alert and oriented and appropriate. I do not appreciate any distress. He is able to provide reasonably good history. The last set of vital signs revealed a blood pressure 139/83, heart rate in the 90s, afebrile, saturation 95% on room air. Weight was recorded as 121 kilograms. His JVP is not high. Lungs are reasonably clear, good air movement. Heart exam reveals regular rhythm. There is a murmur over the aortic valve that is approximately 2 or 3/6 intensity that has a relatively high-pitched character radiating to both carotid arteries. The second aortic sound is diminished. I do not appreciate any diastolic murmur. I do not appreciate gallop. Abdomen is obese but soft, no guarding, no hepatosplenomegaly. Extremities are free of edema. There are chronic atrophic changes on his toes and toenails. The peripheral pulses are palpable but of poor quality. I do not appreciate any ulcers. Neurologically, he is alert and oriented. His speech and comprehensions are intact. I do not appreciate any focal deficit. Obviously, he cannot move his right lower extremity consequent to his pain. LABORATORIES: Basic metabolic panel: Sodium 140, potassium 4.5, BUN 24, creatinine 1.8 and glucose 114. CBC is normal. His INR is 1.06. SARS and influenza testing were negative. Chest x-ray reveals cardiomegaly but no effusion or congestive heart failure. There is a pacemaker apparent inside the right ventricle. ECG reveals presence of atrial fibrillation with ventricular pacing. ASSESSMENT AND PLAN: Mr. Cole is an 80-year-old man who presented with broken hip that is mildly displaced. He in my opinion should proceed with surgery without further delay even though it will be at high risk that is a consequence of established coronary artery disease, chronic atrial fibrillation but most importantly due to underlying severe if not critical aortic stenosis. But he has no clinical congestive heart failure, no history of syncopal events and his blood pressure is not low. Untreated hip fracture has dismal prognosis and consequently I think it is best for him to proceed with surgery even though the risk is certainly high. He should have maximal attention focused on prevention of severe hypotension. I would continue his Bisoprolol in the perioperative period. I would also continue aspirin and rosuvastatin. He is not anticoagulated due to presence of Watchman device. As far as the management of pacemaker in the perioperative period, he has intracardiac pacemaker. It is very far from the operating field and consequently, I do not recommend any specific intervention for the surgery. KIMMIE
--- NOTE | 2020-08-12 20:44 | ECGEPIP ---
[facility] - ED Test Date: 2020-08-12 Pat Name: CHIN WELCH Department: Room: - Gender: Male Receiving Dock Checker: : 1940 Requested By: Luis E Villagomez Order Number: [id number] Reading MD: Luis E Foss Measurements Intervals Hunker Rate: 66 P: VT: 0 QRS: 85 QRSD: 153 T: 55 QT: 464 QTc: 486 Interpretive Statements ELECTRONIC VENTRICULAR PACEMAKER Electronically Signed on 08-12-2020 20:43:58 EST by Luis E Foss
[2020-08-12] MEDS: TRIAMCINOLONE ACET 0.1% CREAM 80 GM TOP SCH (21:04)
[2020-08-12] MEDS: NS 1,000 ML IV SCH (21:05)
[2020-08-12 22:00] VITALS: BP 134/74
[2020-08-13] MEDS: NS 1,000 ML IV SCH ×2 (03:09→11:09)
[2020-08-13 06:00] VITALS: BP 141/82
[2020-08-13 06:12] LABS: HEMATOCRIT 48.2 % (42.0-52.0); HEMOGLOBIN 15.8 g/dl (13.5-17.5); MEAN CORPUSCULAR HEMOGLOBIN 30.9 pg (27.0-33.0); MEAN CORPUSCULAR HGB CONC 32.8 g/dl (32.0-36.5); MEAN CORPUSCULAR VOLUME 94.1 fl (80.0-96.0); PLATELET COUNT, AUTOMATED 151 10^3/uL (150-450); RED BLOOD COUNT 5.12 10^6/uL (4.30-6.10); WHITE BLOOD COUNT 11.8 10^3/uL (4.0-10.0)
[2020-08-13 06:32] LABS: ALBUMIN 3.4 GM/DL (3.2-5.2); BILIRUBIN,TOTAL 1.6 MG/DL (0.2-1.0); CALCIUM LEVEL 8.8 MG/DL (8.8-10.2); CREATININE FOR GFR 1.61 MG/DL (0.70-1.30); POTASSIUM SERUM 4.5 MEQ/L (3.5-5.1); TOTAL PROTEIN 7.2 GM/DL (6.4-8.2)
[2020-08-13] MEDS: SINEMET 25-100 MG TAB PO SCH ×4 (08:30→21:19)
[2020-08-13] MEDS: BISOPROLOL FUM 2.5 MG PER 1/2TAB PO SCH (08:30)
[2020-08-13] MEDS: MORPHINE 2 MG/ML 1ML VIAL (J2270) IV PRN (08:31)
[2020-08-13] MEDS: TRIAMCINOLONE ACET 0.1% CREAM 80 GM TOP SCH ×2 (08:34→21:19)
[2020-08-13] MEDS ORDERED: FUROSEMIDE 20 MG TAB PO SCH (09:00)
--- NOTE | 2020-08-13 09:08 | IPN ---
PROGRESS NOTE DATE: 08/13/2020 SUBJECTIVE: Rodger is seen on the Hospitalist service, admitted with a right hip fracture. He has a history of severe aortic stenosis with last echocardiogram in 05/30 showing normal ejection fraction 50-55%. Mean aortic gradient 48 mm. Peak gradient 71 mm. History of atrial fibrillation which is chronic, coronary artery disease, also has Parkinson's disease and hypertension. He had a Watchman procedure done and pacemaker placed in 2018. He denies any chest pain or shortness of breath at rest. No syncope. He was seen in consultation by Dr. Savage because of his severe aortic stenosis who felt the patient could proceed with surgery without delay. He felt his severe but not critical aortic stenosis increases surgical risk but he was not in heart failure and so was considered to be optimized at that point. He also notes the pacemaker is intracardiac and should not interfere with surgery. PHYSICAL EXAMINATION: VITAL SIGNS: Blood pressure 143/83, pulse is 73, afebrile. GENERAL APPEARANCE: He is alert, conversant, in no distress. LUNGS: Regular rate and rhythm with a loud 3/6 systolic ejection murmur over right upper sternal border radiating to his carotid. ABDOMEN: Soft, nontender. No masses. EXTREMITIES: Trace peripheral edema. LABORATORY DATA: White count is 11.8, hemoglobin is 15.8, electrolytes are unremarkable. Creatinine is 1.6. IMPRESSION: 1. Right hip fracture, patient has been cleared by cardiology for surgery. The risk is elevated due to severe aortic stenosis, he will be at risk for postoperative congestive heart failure, angina, myocardial infarction but the risk of not proceeding with surgery outweighs this. 2. Hypertension, continue Bisoprolol, holding for hypotension. 3. Hyperlipidemia, continue rosuvastatin 10 mg daily. 4. Atrial fibrillation, he is not currently on warfarin, he had a Watchman procedure done. Routine postoperative DVT prophylaxis per orthopedics. 5. Parkinson's disease. This will probably bear on his recovery with Physical Therapy. Continue his current dose of Sinemet.
[2020-08-13] MEDS ORDERED: ceFAZolin 1GM VIAL (J0690 PER 500MG) As Ordered ONE (09:24)
[2020-08-13] MEDS ORDERED: propofoL 500 MG/50 ML VIAL As Ordered ONE (10:50)
[2020-08-13] MEDS ORDERED: dexameTHASONE 4 MG/ML 1ML VIAL (J1100 PER 1MG) As Ordered ONE (10:50)
[2020-08-13] MEDS ORDERED: ONDANSETRON 4MG/2ML VIAL As Ordered ONE ×2 (10:50→14:39)
[2020-08-13] MEDS ORDERED: LIDOCAINE 2% 100MG/5ML SDV (FOR ANES.) As Ordered ONE ×3 (10:50→14:06)
[2020-08-13] MEDS ORDERED: fentaNYL 100 MCG/2 ML INJECTION (J3010) As Ordered ONE ×3 (10:51→14:14)
[2020-08-13] MEDS ORDERED: KETAMINE HCL 200 MG/20 ML VIAL As Ordered ONE (10:51)
[2020-08-13] MEDS ORDERED: ROCURONIUM BROMIDE 50 MG/5 ML VIAL As Ordered ONE ×2 (12:23→14:05)
[2020-08-13] MEDS ORDERED: ETOMIDATE INJ 20MG/10ML VIAL As Ordered ONE (12:23)
[2020-08-13] MEDS ORDERED: MIDAZOLAM INJ 2MG/2ML VIAL (J2250 PER 1MG) As Ordered ONE (12:24)
[2020-08-13] MEDS ORDERED: ceFAZolin 2 GM/D5W 50 ML IV BAG (J0690 PER 500MG) As Ordered ONE (13:08)
[2020-08-13] MEDS: EPINEPHrine INJ 1 MG/ML 1ML AMP As Ordered ONE ×2 (13:39→14:33)
--- NOTE | 2020-08-13 13:41 | CR ---
CONSULTATION DATE: 08/12/2020 REASON FOR CONSULTATION: Right femoral neck fracture. HISTORY OF PRESENT ILLNESS: This 79-year-old man had a fall while trying to pull up his pants. He is a resident of [facility]. He had a ground level fall. He sustained a displaced right femoral neck fracture. I was consulted by the hospitalist transitional kindergarten teacher, Dr. Flores. PAST MEDICAL HISTORY: 1. Coronary artery disease. 2. Cerebrovascular accident (CVA) . 3. Pulmonary hypertension. 4. Aortic stenosis. 5. Parkinson's. 6. Atrial fibrillation. 7. Dysphagia. 8. Carotid stenosis. MEDICATIONS: - aspirin - bisoprolol - carbidopa-levodopa - cimetidine - furosemide - rosuvastatin - triamcinolone ALLERGIES: No known drug allergies. PAST SURGICAL HISTORY: 1. Cardiac stenting. 2. Watchman device. 3. Pacemaker (PM) placement. SOCIAL HISTORY: Prior smoker for five years, quit 40 years ago. Denies drug or alcohol use. He uses a walker normally. PHYSICAL EXAMINATION: This is a well-appearing fit 80-year-old man in no acute distress. Alert and oriented x3. He has a closed injury to his right lower extremity. There is slight shortening and external rotation. Normal sensation and motor function of the foot. The foot is warm and well-perfused. Good pedal pulses. He can dorsiflex and plantarflex the foot. IMAGING STUDIES: Radiographs were reviewed of his right hip. This reveals a displaced right femoral neck fracture. LABORATORY DATA: Reveals hemoglobin 15.6. INR 1.06. COVID negative. ASSESSMENT AND PLAN: This is an 80-year-old man with a displaced right femoral neck fracture. This is recommended for surgery in the form of hemiarthroplasty. I discussed the pros, cons, risks, and benefits of going ahead with a right hip cemented hemiarthroplasty. These risks include, but are not limited to infection, pain, stiffness, bleeding, neurovascular injury, damage to surrounding structures, limp, fracture instability, loosening, component wear, need for revision, anesthetic complications, blood clots, , and other risks. He wished to go ahead and signed the consent form for surgery, as well as possible need for blood products. Will make him n.p.o. in the morning of 08/13/2020 in preparation for surgery. He has been cleared by the hospitalist and had no further questions. I marked the right lower extremity.
[2020-08-13] MEDS ORDERED: BUPIVACAINE LIPOSOME/PF 1.3% 20ML VIAL (13.3MG/ML)(EXPAREL)(C9290 PER1MG) As Ordered ONE (14:55)
[2020-08-13] MEDS ORDERED: BUPIVACAINE HCL 0.25% 10ML VIAL As Ordered ONE (14:58)
[2020-08-13] MEDS ORDERED: oxyCODONE 5MG TAB PO PRN (16:00)
[2020-08-13] MEDS ORDERED: ACETAMINOPHEN TAB 650MG DOSE (2X325MG) PO PRN (16:00)
[2020-08-13] MEDS ORDERED: PERCOCET 5MG/325MG TAB PO PRN (16:00)
[2020-08-13] MEDS ORDERED: fentaNYL 100 MCG/2 ML INJECTION (J3010) IV PRN (16:00)
[2020-08-13] MEDS: LR 1,000 ML IV SCH (16:00)
[2020-08-13] MEDS ORDERED: LR 1,000 ML IV SCH (16:00)
[2020-08-13] MEDS ORDERED: MORPHINE 2 MG/ML 1ML VIAL (J2270) IV PRN (16:00)
[2020-08-13] MEDS ORDERED: ONDANSETRON 4MG/2ML VIAL IV PRN ×2 (16:00)
--- NOTE | 2020-08-13 16:11 | REP ---
INDICATION: POST OP IN PACU. COMPARISON: Comparison right hip radiographs are from August 12, 2020.. TECHNIQUE: AP and cross-table lateral views are obtained. FINDINGS: A right hip hemiarthroplasty is seen in good position. Periarticular soft tissue emphysema is seen. IMPRESSION: Status post right hip hemiarthroplasty. <Electronically signed by Piter Erickson > 08/13/20 0310
[2020-08-13 17:00] VITALS: BP 114/72
[2020-08-13 17:23] VITALS: BP 115/68
[2020-08-13 17:54] VITALS: BP 109/51
[2020-08-13 18:56] VITALS: BP 139/84
[2020-08-13] MEDS: ceFAZolin SOD 2 GM in IV 1 EA IV SCH (21:19)
[2020-08-13 22:00] VITALS: BP 107/65
[2020-08-14] MEDS: LR 1,000 ML IV SCH
[2020-08-14 02:00] VITALS: BP 117/64
[2020-08-14] MEDS: ceFAZolin SOD 2 GM in IV 1 EA IV SCH (05:25)
[2020-08-14 06:00] VITALS: BP 121/62
[2020-08-14 06:34] LABS: HEMATOCRIT 42.3 % (42.0-52.0); HEMOGLOBIN 13.9 g/dl (13.5-17.5); MEAN CORPUSCULAR HEMOGLOBIN 31.3 pg (27.0-33.0); MEAN CORPUSCULAR HGB CONC 32.9 g/dl (32.0-36.5); MEAN CORPUSCULAR VOLUME 95.3 fl (80.0-96.0); PLATELET COUNT, AUTOMATED 132 10^3/uL (150-450); RED BLOOD COUNT 4.44 10^6/uL (4.30-6.10); WHITE BLOOD COUNT 14.6 10^3/uL (4.0-10.0)
[2020-08-14 06:57] LABS: ALBUMIN 2.7 GM/DL (3.2-5.2); ALT/SGPT < 6 U/L (12-78); BILIRUBIN,TOTAL 1.7 MG/DL (0.2-1.0); BLOOD UREA NITROGEN 29 MG/DL (7-18); CALCIUM LEVEL 8.1 MG/DL (8.8-10.2); CARBON DIOXIDE LEVEL 26 MEQ/L (21-32); CHLORIDE LEVEL 109 MEQ/L (98-107); CREATININE FOR GFR 1.69 MG/DL (0.70-1.30); GLOMERULAR FILTRATION RATE 41.6 (>35); GLUCOSE, FASTING 134 MG/DL (70-100); POTASSIUM SERUM 4.5 MEQ/L (3.5-5.1); SODIUM LEVEL 141 MEQ/L (136-145); TOTAL PROTEIN 6.1 GM/DL (6.4-8.2)
[2020-08-14] MEDS ORDERED: ROSUVASTATIN 10 MG TAB (CRESTOR) PO SCH (09:00)
[2020-08-14] MEDS: SINEMET 25-100 MG TAB PO SCH ×4 (09:05→20:54)
--- NOTE | 2020-08-14 09:05 | RO ---
OPERATIVE NOTE DATE OF OPERATION: 08/13/2020 PREOPERATIVE DIAGNOSIS: Right femoral neck fracture. POSTOPERATIVE DIAGNOSIS: Right femoral neck fracture. PLANNED PROCEDURE: Right hip cemented hemiarthroplasty. PROCEDURE PERFORMED: Right hip cemented hemiarthroplasty. SURGEON: Art Dumont MD EXPRESSIVE MUSIC THERAPIST: Jerome Sotomayor Jr., DO ANESTHESIA: General anesthetic. OPERATIVE PREAMBLE: This 80-year-old man had a ground level fall. He sustained a displaced femoral neck fracture. We discussed the pros, cons, risks, and benefits of going ahead with a right hip hemiarthroplasty. He wished to proceed, marked the right lower extremity, and proceeded to surgery. DESCRIPTION OF PROCEDURE: The patient was brought to the operating room theater. He was placed supine on the operating table. General anesthesia was induced due to severe aortic stenosis. The patient was placed in the right lateral decubitus with the aid of the Huson hip positioner. Two grams of IV Ancef was administered prior to the start of the case. The limb was prepped and draped in the usual sterile fashion allowing over three minutes prep solution drying time prior to draping. Chlorhexidine-based prep solution was employed. Axillary roll was placed. SCD was used on the down leg and Monica Hugger employed. Preoperative time-out was performed to confirm the site, the patient, and the surgery. I began by making a standard lateral incision and curved this slightly posteriorly over the proximal aspect of the hip. Carried the dissection down through the skin and subcutaneous tissue achieving meticulous hemostasis. I incised the tensor fascia dee in-line with the skin incision. I sharply dissected the abductors off the greater trochanter. I made a T-shaped capsulotomy and tagged the limbs with #1-Vicryl suture. I made my next cut 1 cm above the level of the lesser trochanter. I removed the femoral head and sized this to be a 51. I then used sequential broaching up to a size 6. I trialed with a -3 mm head and neck taper with a size 51 mm head. This appeared appropriate. We had stable and solid flexion, internal rotation, as well as extension and external rotation. was normal. Components were removed. The canal was prepared using pulse lavage. A size 3 distal cement restrictor was then placed. The cement was mixed using third generation cement mixing techniques. I pressurized the cement to the canal to an appropriate level. I placed a sponge in the acetabulum. I used pulse lavage to clean out the acetabulum. I placed a component Synthes hemiarthroplasty stem in the appropriate version allowing the cement to fully harden and removed any excess cement. Trunnion was cleaned and femoral head and neck taper offset was then impacted into place. The head was reduced and a final stability check with no obvious signs of . The wound was cleansed with pulse lavage. Abductors were repaired through bony tunnels with #2 FiberWire sutures. Tensor fascia dee was closed with running #1 STRATAFIX suture and subcutaneous tissue was closed with interrupted and running 2-0 Vicryl sutures. 20 mL of Exparel mixed with 20 mL of 0.25% Marcaine with 20 mL of normal saline was instilled in and around the incision sites. Prineo dressing was placed and once this was dry, an ABD over top to control any small amount of oozing. The patient was woken up from general anesthetic, transferred off of the operating room table, and taken to the postanesthetic care unit in stable condition. All sponge, needle, and instrument counts were correct. Estimated blood loss 100 mL. There were no complications. PLAN: The patient will be weightbearing as tolerated. Ancef 2 grams IV x2 doses postoperatively, as well as Xarelto 10 mg p.o. once daily for venous thromboembolism (VTE) prophylaxis. X-ray in PACU. I will follow up with the patient in two weeks time in the clinic.
[2020-08-14] MEDS: BISOPROLOL FUM 2.5 MG PER 1/2TAB PO SCH (09:07)
[2020-08-14] MEDS: TRIAMCINOLONE ACET 0.1% CREAM 80 GM TOP SCH ×2 (09:08→20:55)
--- NOTE | 2020-08-14 09:13 | IPN ---
PROGRESS NOTE DATE: 08/12/2020 CHIEF COMPLAINT: Postoperative day one right hip hemiarthroplasty for femoral neck fracture. HISTORY OF PRESENT ILLNESS: This is an 80-year-old man who underwent right hip hemiarthroplasty, cemented, for femoral neck fracture yesterday during the day. Seen today on the mcrae, [address] [place]. He is doing well. No concerns or complaints from him or the nursing staff. PHYSICAL EXAMINATION: This is an 80-year-old man. He is alert and oriented. Incision is clean and dry. However, he has had two abdominal (ABD) dressing placed that have been saturated overnight. However, there is no active oozing. Normal sensation and motor function of the foot. Foot is warm and well perfused. He is able to wiggle his toes, dorsiflex and plantarflex his foot. Postoperative radiograph demonstrates the implant to be well-fixed, well-positioned. ASSESSMENT AND PLAN: This 80-year-old man is doing well postoperative day one from right hip hemiarthroplasty for femoral neck fracture. He will be mobilized, weightbearing as tolerated.
[2020-08-14 10:00] VITALS: BP 120/62
[2020-08-14 14:00] VITALS: BP 121/64
[2020-08-14 18:00] VITALS: BP 121/81
[2020-08-14] MEDS ORDERED: RIVAROXABAN 10 MG TAB (XARELTO) PO SCH (18:00)
[2020-08-14 22:00] VITALS: BP 142/72
[2020-08-15 06:00] VITALS: BP 117/63
[2020-08-15] MEDS: SINEMET 25-100 MG TAB PO SCH (09:46)
[2020-08-15 09:48] VITALS: BP 141/59
[2020-08-15] MEDS: BISOPROLOL FUM 2.5 MG PER 1/2TAB PO SCH (09:48)
[2020-08-15] MEDS: TRIAMCINOLONE ACET 0.1% CREAM 80 GM TOP SCH (09:49)
[2020-08-15] MEDS ORDERED: XARE10TA PO (09:56)
--- NOTE | 2020-08-15 12:21 | IPN ---
PROGRESS NOTE DATE: 08/14/2020 Rodger was discharged yesterday, apparently they did not take him back at [facility]. He is stable for discharge. Dr. Dumont would like him on Xarelto 10 mg daily for 30 days, so we have added that to his discharge instructions. Otherwise, there is no change from yesterday's dictation.
== END 2020-08-15 11:00 | DRG 522 ==
LOC: M ED 10:37 → M ED INP 12:49 → M MS5PR 14:05
PROVIDERS: ADMIT Internal Medicine; ATTEND Internal Medicine Nephrology
PROC: 0SR90J9 Replacement of Right Hip Joint with Synthetic Substitute, Cemented, Open Approach (ICD-10-PCS; principal; 2020-08-13 12:00)
DX: S72.001A Fracture of unspecified part of neck of right femur, initial encounter for closed fracture (principal); I48.20 Chronic atrial fibrillation, unspecified; I69.351 Hemiplegia and hemiparesis following cerebral infarction affecting right dominant side; W19.XXXA Unspecified fall, initial encounter; Y92.129 Unspecified place in nursing home as the place of occurrence of the external cause; Z95.2 Presence of prosthetic heart valve; I25.10 Atherosclerotic heart disease of native coronary artery without angina pectoris; I27.20 Pulmonary hypertension, unspecified; I35.0 Nonrheumatic aortic (valve) stenosis; G20 Parkinson's disease; Z87.891 Personal history of nicotine dependence; Z79.82 Long term (current) use of aspirin; Z79.899 Other long term (current) drug therapy; Z95.0 Presence of cardiac pacemaker; E78.5 Hyperlipidemia, unspecified

== ENCOUNTER → 2020-08-12 | Outpatient (REF) | payer MEDICARE, BC, MEDICAID ==
[~2020-08-12] MED LIST changes: +LISI-542 PO; -LISI-898 PO; -LISI10TA22 PO; +LISI10TA4 PO; -XARE10TA PO
--- NOTE | 2020-08-12 10:19 | REP ---
INDICATION: PAIN AFTER FALL COMPARISON: None. TECHNIQUE: AP and frog-lateral views of the right hip FINDINGS: There is an acute mildly angulated fracture through the femoral neck. Underlying age-related changes noted. Surrounding soft tissues are grossly unremarkable. IMPRESSION: Acute femoral neck fracture with mild angulation. <Electronically signed by Sathish James > 08/12/20 1015
== END ==
LOC: SKLAB3 09:43
DX: S72.001A Fracture of unspecified part of neck of right femur, initial encounter for closed fracture (principal); W19.XXXA Unspecified fall, initial encounter; Y92.129 Unspecified place in nursing home as the place of occurrence of the external cause

== ENCOUNTER → 2020-08-20 | Outpatient (REF) ==
[~2020-08-20] MED LIST changes: +BISO5TAB14 PO; +CIME-49 PO; +FURO20TA2 PO; -LISI-542 PO; +LISI-898 PO; +LISI10TA22 PO; -LISI10TA4 PO; +MOM30SS2 PO; +MYLASSUD GT; +NITR4TASL SL; +ROSU10TA6 PO; +TRIA1CR80 TOP; +XARE10TA PO
[2020-08-20 09:46] LABS: HEMATOCRIT 42.4 % (42.0-52.0); HEMOGLOBIN 13.5 g/dl (13.5-17.5); MEAN CORPUSCULAR HGB CONC 31.8 g/dl (32.0-36.5); MEAN CORPUSCULAR VOLUME 97.2 fl (80.0-96.0); PLATELET COUNT, AUTOMATED 272 10^3/uL (150-450); RED BLOOD COUNT 4.36 10^6/uL (4.30-6.10); WHITE BLOOD COUNT 10.4 10^3/uL (4.0-10.0)
== END ==
LOC: SKLAB2 09:58
DX: Z79.01 Long term (current) use of anticoagulants (principal)

== ENCOUNTER → 2020-08-21 | Outpatient (REF) | payer MEDICARE, BC, MEDICAID | LOC: SKLAB2 09:54 | PROVIDERS: ATTEND Internal Medicine | DX: Z20.822 Contact with and (suspected) exposure to COVID-19 (principal) ==

== ENCOUNTER → 2020-08-28 | Outpatient (REF) | payer MEDICARE, BC, MEDICAID | LOC: SKLAB3 08:00 | PROVIDERS: ATTEND Internal Medicine | DX: Z20.822 Contact with and (suspected) exposure to COVID-19 (principal) ==

== ENCOUNTER → 2020-08-29 | Outpatient (CLI) | payer MEDICARE, BC, MEDICAID ==
--- NOTE | 2020-08-29 10:05 | REP ---
INDICATION: RIGHT HIP PAIN. COMPARISON: Comparison right hip radiographs are from 13 August 2020.. TECHNIQUE: AP and frogleg views of the right hip were obtained. FINDINGS: Right hip hemiarthroplasty remains in place in good position. No bony erosive change is seen. No fracture is noted. Periarticular soft tissues are unremarkable. IMPRESSION: Status post right hip replacement. No acute abnormality. <Electronically signed by Piter Erickson > 08/29/20 100
== END ==
LOC: M SOG 09:14
PROVIDERS: ATTEND Orthopaedic Surgery Sports Medicine
DX: Z47.89 Encounter for other orthopedic aftercare (principal); Z96.641 Presence of right artificial hip joint

== ENCOUNTER → 2020-09-04 | Outpatient (REF) | payer MEDICARE, BC, MEDICAID | LOC: SKLAB3 14:10 | PROVIDERS: ATTEND Internal Medicine | DX: Z20.822 Contact with and (suspected) exposure to COVID-19 (principal) ==

== ENCOUNTER → 2020-09-11 | Outpatient (CLI) | payer MEDICARE, BC, MEDICAID ==
--- NOTE | 2020-09-11 18:40 | REP ---
INDICATION: R13.12 DYSPHAGIA. COMPARISON: None. TECHNIQUE: The procedure was performed by Ena Garcia [facility], under the direct supervision of Dr. Hudson. The procedure was performed with Flor Todd from speech pathology present. 5 ml aliquots of honey, pudding, mixed fruit with a putting base, soft food, and pill consistency barium was administered. FINDINGS: Aspiration was visualized with both honey thick and soft food consistency barium. The detailed report of this examination will be provided by speech pathology. IMPRESSION: Aspiration was visualized during this exam, a detailed report will be provided by speech pathology. 1.3 minutes of fluoroscopy time was utilized for this procedure. Some fluoroscopic images are performed with last image hold technology. These images require no additional radiation <Electronically signed by Ena Garcia > 09/11/20 [id number] <Electronically signed by Hugo Hudson > 09/11/20 [id number]
== END ==
LOC: M ST 13:37
DX: R13.12 Dysphagia, oropharyngeal phase (principal)

== ENCOUNTER → 2020-09-18 | Outpatient (REF) | payer MEDICARE, BC, MEDICAID | LOC: SKLAB3 08:00 | PROVIDERS: ATTEND Internal Medicine | DX: Z11.52 Encounter for screening for COVID-19 (principal) ==

== ENCOUNTER → 2020-09-24 | Outpatient (REF) | payer MEDICARE, BC, MEDICAID ==
[2020-09-24 08:25] LABS: HEMATOCRIT 40.8 % (42.0-52.0); HEMOGLOBIN 13.1 g/dl (13.5-17.5); MEAN CORPUSCULAR HEMOGLOBIN 30.8 pg (27.0-33.0); MEAN CORPUSCULAR HGB CONC 32.1 g/dl (32.0-36.5); MEAN CORPUSCULAR VOLUME 95.8 fl (80.0-96.0); PLATELET COUNT, AUTOMATED 235 10^3/uL (150-450); RED BLOOD COUNT 4.26 10^6/uL (4.30-6.10); WHITE BLOOD COUNT 8.7 10^3/uL (4.0-10.0)
[2020-09-24 08:56] LABS: CHOLESTEROL RISK RATIO 2.375 (<5)
== END ==
LOC: SKLAB3 07:00
DX: G20 Parkinson's disease (principal); E78.5 Hyperlipidemia, unspecified

== ENCOUNTER → 2020-09-25 | Outpatient (REF) | payer MEDICARE, BC, MEDICAID | LOC: SKLAB3 14:42 | PROVIDERS: ATTEND Internal Medicine | DX: Z20.822 Contact with and (suspected) exposure to COVID-19 (principal) ==

== ENCOUNTER → 2020-09-26 | Outpatient (CLI) | payer MEDICARE, BC, MEDICAID ==
--- NOTE | 2020-09-26 09:46 | REP ---
INDICATION: F/U RIGHT HIP COMPARISON: 08/13/2020 TECHNIQUE: AP and frog-lateral views of the right hip. FINDINGS: Osseous structures and replacement are normal in position and appearance and appears stable. No acute fracture or dislocation. No significant new degenerative changes. Surrounding soft tissues are unremarkable. IMPRESSION: Stable relatively appropriate right hip radiographs. <Electronically signed by Sathish James > 09/26/20 [id number]
== END ==
LOC: M SOG 08:59
PROVIDERS: ATTEND Orthopaedic Surgery Sports Medicine
DX: Z96.641 Presence of right artificial hip joint (principal)

== ENCOUNTER → 2020-10-08 | Outpatient (REF) | payer MEDICARE, BC, MEDICAID ==
[2020-10-08 09:27] LABS: HEMATOCRIT 41.8 % (42.0-52.0); HEMOGLOBIN 13.4 g/dl (13.5-17.5); MEAN CORPUSCULAR HEMOGLOBIN 30.2 pg (27.0-33.0); MEAN CORPUSCULAR HGB CONC 32.1 g/dl (32.0-36.5); MEAN CORPUSCULAR VOLUME 94.4 fl (80.0-96.0); PLATELET COUNT, AUTOMATED 223 10^3/uL (150-450); RED BLOOD COUNT 4.43 10^6/uL (4.30-6.10); WHITE BLOOD COUNT 7.8 10^3/uL (4.0-10.0)
== END ==
LOC: SKLAB3 10-02 10:19
DX: Z79.01 Long term (current) use of anticoagulants (principal)

== ENCOUNTER → 2020-10-11 | Outpatient (REF) | payer MEDICARE, BC, MEDICAID | LOC: SKLAB3 08:35 | PROVIDERS: ATTEND Internal Medicine | DX: Z20.822 Contact with and (suspected) exposure to COVID-19 (principal) ==

== ENCOUNTER → 2020-12-24 | Outpatient (REF) | payer MEDICARE, BC, MEDICAID ==
[~2020-12-24] MED LIST changes: +CARB-89 PO; -SINE25TA5 PO
[2020-12-24 08:14] LABS: HEMATOCRIT 45.6 % (42.0-52.0); HEMOGLOBIN 14.8 g/dl (13.5-17.5); MEAN CORPUSCULAR HEMOGLOBIN 30.6 pg (27.0-33.0); MEAN CORPUSCULAR HGB CONC 32.5 g/dl (32.0-36.5); MEAN CORPUSCULAR VOLUME 94.2 fl (80.0-96.0); PLATELET COUNT, AUTOMATED 161 10^3/uL (150-450); RED BLOOD COUNT 4.84 10^6/uL (4.30-6.10); WHITE BLOOD COUNT 7.6 10^3/uL (4.0-10.0)
== END ==
LOC: SKLAB3 07:00
DX: G20 Parkinson's disease (principal); I48.91 Unspecified atrial fibrillation

== ENCOUNTER → 2021-02-24 | Outpatient (REF) | payer MEDICARE, BC, MEDICAID | LOC: SKLAB3 14:21 | DX: J02.9 Acute pharyngitis, unspecified (principal) | CPT/HCPCS: 87070; U0002 ==

== ENCOUNTER → 2021-02-25 | Outpatient (REF) | payer MEDICARE, BC, MEDICAID ==
[2021-02-25 10:31] LABS: HEMATOCRIT 41.8 % (42.0-52.0); HEMOGLOBIN 13.7 g/dl (13.5-17.5); MEAN CORPUSCULAR HEMOGLOBIN 31.1 pg (27.0-33.0); MEAN CORPUSCULAR HGB CONC 32.8 g/dl (32.0-36.5); MEAN CORPUSCULAR VOLUME 94.8 fl (80.0-96.0); PLATELET COUNT, AUTOMATED 173 10^3/uL (150-450); RED BLOOD COUNT 4.41 10^6/uL (4.30-6.10); WHITE BLOOD COUNT 6.8 10^3/uL (4.0-10.0)
[2021-02-25 11:12] LABS: ALBUMIN 3.1 GM/DL (3.2-5.2); BILIRUBIN,TOTAL 0.7 MG/DL (0.2-1.0); CALCIUM LEVEL 7.9 MG/DL (8.8-10.2); CHOLESTEROL RISK RATIO 2.581 (<5); CREATININE FOR GFR 1.76 MG/DL (0.70-1.30); GLOMERULAR FILTRATION RATE 39.6 (>35); TOTAL PROTEIN 6.4 GM/DL (6.4-8.2)
== END ==
LOC: SKLAB3 07:00
PROVIDERS: ATTEND Neuromusculoskeletal Medicine & OMM
DX: G20 Parkinson's disease (principal); Z79.899 Other long term (current) drug therapy

== ENCOUNTER → 2021-05-01 | Outpatient (REF) | payer MEDICARE, BC, MEDICAID | LOC: SKLAB3 07:31 | PROVIDERS: ATTEND Neuromusculoskeletal Medicine & OMM | DX: Z20.822 Contact with and (suspected) exposure to COVID-19 (principal) ==

== ENCOUNTER → 2021-05-05 | Outpatient (REF) | payer MEDICARE, BC, MEDICAID | LOC: SKLAB3 06:55 | PROVIDERS: ATTEND Internal Medicine | DX: Z20.822 Contact with and (suspected) exposure to COVID-19 (principal) ==

== ENCOUNTER → 2021-05-08 | Outpatient (REF) | payer MEDICARE, BC, MEDICAID | LOC: SKLAB3 05:33 | PROVIDERS: ATTEND Internal Medicine | DX: Z20.822 Contact with and (suspected) exposure to COVID-19 (principal) ==

== ENCOUNTER → 2021-05-12 | Outpatient (REF) | payer MEDICARE, BC, MEDICAID | LOC: SKLAB3 06:14 | PROVIDERS: ATTEND Internal Medicine | DX: Z20.822 Contact with and (suspected) exposure to COVID-19 (principal) ==

== ENCOUNTER → 2021-05-15 | Outpatient (REF) | payer MEDICARE, BC, MEDICAID | LOC: SKLAB3 11:12 | PROVIDERS: ATTEND Neuromusculoskeletal Medicine & OMM | DX: Z20.822 Contact with and (suspected) exposure to COVID-19 (principal) ==

== ENCOUNTER → 2021-05-21 | Outpatient (REF) | payer MEDICARE, BC, MEDICAID | LOC: SKLAB3 10:35 | PROVIDERS: ATTEND Neuromusculoskeletal Medicine & OMM | DX: Z20.822 Contact with and (suspected) exposure to COVID-19 (principal) ==

== ENCOUNTER → 2021-05-28 | Outpatient (REF) | payer MEDICARE, BC, MEDICAID | LOC: SKLAB3 09:22 | PROVIDERS: ATTEND Neuromusculoskeletal Medicine & OMM | DX: Z20.822 Contact with and (suspected) exposure to COVID-19 (principal) ==

== ENCOUNTER → 2021-06-09 | Outpatient (REF) | payer MEDICARE, BC, MEDICAID ==
[~2021-06-09] MED LIST changes: -LISI-898 PO; +LISI5TAB11 PO
== END ==
LOC: SKLAB3 10:40
PROVIDERS: ATTEND Neuromusculoskeletal Medicine & OMM
DX: R05.9 Cough, unspecified (principal); J02.9 Acute pharyngitis, unspecified; J98.4 Other disorders of lung; I51.7 Cardiomegaly

== ENCOUNTER → 2021-06-18 | Outpatient (REF) | payer MEDICARE, BC, MEDICAID ==
[~2021-06-18] MED LIST changes: +LISI-898 PO; -LISI5TAB11 PO
== END ==
LOC: SKLAB3 09:00
PROVIDERS: ATTEND Neuromusculoskeletal Medicine & OMM
DX: Z20.822 Contact with and (suspected) exposure to COVID-19 (principal)

== ENCOUNTER → 2021-06-25 | Outpatient (REF) | payer MEDICARE, BC, MEDICAID | LOC: SKLAB3 11:41 | PROVIDERS: ATTEND Neuromusculoskeletal Medicine & OMM | DX: Z20.822 Contact with and (suspected) exposure to COVID-19 (principal) ==

== ENCOUNTER → 2021-07-02 | Outpatient (REF) | payer MEDICARE, BC, MEDICAID | LOC: SKLAB3 10:55 | PROVIDERS: ATTEND Neuromusculoskeletal Medicine & OMM | DX: Z20.822 Contact with and (suspected) exposure to COVID-19 (principal) ==

== ENCOUNTER → 2021-07-03 | Outpatient (CLI) | payer MEDICARE, BC, MEDICAID ==
[~2021-07-03] MED LIST changes: -LISI-898 PO; +LISI5TAB11 PO
== END ==
LOC: M SOG 08:29
PROVIDERS: ATTEND Orthopaedic Surgery Sports Medicine
DX: S72.001D Fracture of unspecified part of neck of right femur, subsequent encounter for closed fracture with routine healing (principal); X58.XXXD Exposure to other specified factors, subsequent encounter; Y92.9 Unspecified place or not applicable; Y93.9 Activity, unspecified; Y99.9 Unspecified external cause status; Z96.641 Presence of right artificial hip joint

== ENCOUNTER → 2021-07-09 | Outpatient (REF) | payer MEDICARE, BC, MEDICAID ==
[~2021-07-09] MED LIST changes: +LISI-898 PO; -LISI5TAB11 PO
== END ==
LOC: SKLAB3 09:07
PROVIDERS: ATTEND Neuromusculoskeletal Medicine & OMM
DX: Z20.822 Contact with and (suspected) exposure to COVID-19 (principal)

== ENCOUNTER → 2021-07-16 | Outpatient (REF) | payer MEDICARE, BC, MEDICAID | LOC: SKLAB3 09:33 | PROVIDERS: ATTEND Neuromusculoskeletal Medicine & OMM | DX: Z20.822 Contact with and (suspected) exposure to COVID-19 (principal) ==

== ENCOUNTER → 2021-08-26 | Outpatient (REF) | payer MEDICARE, BC, MEDICAID ==
[~2021-08-26] MED LIST changes: -LISI-898 PO; +LISI5TAB11 PO
[2021-08-26 14:28] LABS: HEMATOCRIT 41.8 % (42.0-52.0); HEMOGLOBIN 13.4 g/dl (13.5-17.5); MEAN CORPUSCULAR HEMOGLOBIN 29.4 pg (27.0-33.0); MEAN CORPUSCULAR HGB CONC 32.1 g/dl (32.0-36.5); MEAN CORPUSCULAR VOLUME 91.7 fl (80.0-96.0); PLATELET COUNT, AUTOMATED 176 10^3/uL (150-450); RED BLOOD COUNT 4.56 10^6/uL (4.30-6.10); WHITE BLOOD COUNT 6.4 10^3/uL (4.0-10.0)
[2021-08-26 14:53] LABS: BILIRUBIN,TOTAL 0.9 MG/DL (0.2-1.0); CALCIUM LEVEL 8.8 MG/DL (8.8-10.2); CHOLESTEROL RISK RATIO 2.837 (<5); CREATININE FOR GFR 1.61 MG/DL (0.70-1.30); GLOMERULAR FILTRATION RATE 43.8 (>35); POTASSIUM SERUM 3.7 MEQ/L (3.5-5.1); TOTAL PROTEIN 6.8 GM/DL (6.4-8.2)
== END ==
LOC: SKLAB3 11:06
PROVIDERS: ATTEND Neuromusculoskeletal Medicine & OMM
DX: G20 Parkinson's disease (principal); E78.5 Hyperlipidemia, unspecified

== ENCOUNTER → 2021-10-06 | Outpatient (REF) | payer MEDICARE, BC, MEDICAID ==
[2021-10-06 13:21] LABS: HEMATOCRIT 38.8 % (42.0-52.0); HEMOGLOBIN 12.6 g/dl (13.5-17.5); MEAN CORPUSCULAR HEMOGLOBIN 30.1 pg (27.0-33.0); MEAN CORPUSCULAR HGB CONC 32.5 g/dl (32.0-36.5); MEAN CORPUSCULAR VOLUME 92.6 fl (80.0-96.0); PLATELET COUNT, AUTOMATED 202 10^3/uL (150-450); RED BLOOD COUNT 4.19 10^6/uL (4.30-6.10); WHITE BLOOD COUNT 7.9 10^3/uL (4.0-10.0)
[2021-10-06 13:41] LABS: CALCIUM LEVEL 8.7 MG/DL (8.8-10.2); CREATININE FOR GFR 1.54 MG/DL (0.70-1.30); GLOMERULAR FILTRATION RATE 46.2 (>35); POTASSIUM SERUM 4.3 MEQ/L (3.5-5.1)
== END ==
LOC: SKLAB7 12:15 → SKLAB3 12:15
PROVIDERS: ATTEND Neuromusculoskeletal Medicine & OMM
DX: R07.9 Chest pain, unspecified (principal); I48.91 Unspecified atrial fibrillation

== ENCOUNTER → 2021-11-06 | Outpatient (CLI) | payer MEDICARE, BC, MEDICAID | LOC: M RAD 14:32 | PROVIDERS: ATTEND Nurse Practitioner Family | DX: M25.551 Pain in right hip (principal); Z96.651 Presence of right artificial knee joint ==

== ENCOUNTER → 2021-11-06 | Outpatient (REF) | payer MEDICARE, BC, MEDICAID | LOC: SKLAB3 10:20 | PROVIDERS: ATTEND Neuromusculoskeletal Medicine & OMM | DX: Z53.8 Procedure and treatment not carried out for other reasons (principal) ==

== ENCOUNTER → 2021-11-25 | Outpatient (REF) | payer MEDICARE, BC, MEDICAID ==
[2021-11-25 08:50] LABS: CALCIUM LEVEL 9.3 MG/DL (8.8-10.2); CREATININE FOR GFR 1.36 MG/DL (0.70-1.30); GLOMERULAR FILTRATION RATE 53.3 (>35); POTASSIUM SERUM 4.2 MEQ/L (3.5-5.1)
== END ==
LOC: SKLAB3 07:00
PROVIDERS: ATTEND Neuromusculoskeletal Medicine & OMM
DX: R60.9 Edema, unspecified (principal)

== ENCOUNTER → 2022-02-06 | Outpatient (REF) | payer MEDICARE, BC, MEDICAID | LOC: SKLAB3 12:08 | PROVIDERS: ATTEND Neuromusculoskeletal Medicine & OMM | DX: Z20.822 Contact with and (suspected) exposure to COVID-19 (principal) ==

== ENCOUNTER → 2022-02-06 | Outpatient (REF) | payer MEDICARE, BC, MEDICAID ==
[2022-02-06 10:11] LABS: HEMOGLOBIN 11.7 g/dl (13.5-17.5); MEAN CORPUSCULAR HEMOGLOBIN 30.4 pg (27.0-33.0); MEAN CORPUSCULAR HGB CONC 32.5 g/dl (32.0-36.5); MEAN CORPUSCULAR VOLUME 93.5 fl (80.0-96.0); PLATELET COUNT, AUTOMATED 170 10^3/uL (150-450); RED BLOOD COUNT 3.85 10^6/uL (4.30-6.10); WHITE BLOOD COUNT 8.7 10^3/uL (4.0-10.0)
== END ==
LOC: SKLAB3 07:00
PROVIDERS: ATTEND Neuromusculoskeletal Medicine & OMM
DX: G20 Parkinson's disease (principal)

== ENCOUNTER → 2022-02-24 | Outpatient (REF) | payer MEDICARE, BC, MEDICAID ==
[2022-02-24 09:58] LABS: HEMATOCRIT 36.9 % (42.0-52.0); HEMOGLOBIN 11.6 g/dl (13.5-17.5); MEAN CORPUSCULAR HEMOGLOBIN 30.6 pg (27.0-33.0); MEAN CORPUSCULAR HGB CONC 31.4 g/dl (32.0-36.5); MEAN CORPUSCULAR VOLUME 97.4 fl (80.0-96.0); PLATELET COUNT, AUTOMATED 204 10^3/uL (150-450); RED BLOOD COUNT 3.79 10^6/uL (4.30-6.10); WHITE BLOOD COUNT 8.7 10^3/uL (4.0-10.0)
[2022-02-24 11:02] LABS: ALBUMIN 3.1 GM/DL (3.2-5.2); BILIRUBIN,TOTAL 0.5 MG/DL (0.2-1.0); CALCIUM LEVEL 8.5 MG/DL (8.8-10.2); CHOLESTEROL RISK RATIO 2.651 (<5); CREATININE FOR GFR 1.92 MG/DL (0.70-1.30); GLOMERULAR FILTRATION RATE 35.7 (>35); POTASSIUM SERUM 3.6 MEQ/L (3.5-5.1); TOTAL PROTEIN 7.1 GM/DL (6.4-8.2)
== END ==
LOC: SKLAB3 09:37
PROVIDERS: ATTEND Nurse Practitioner Family
DX: G20 Parkinson's disease (principal); E78.5 Hyperlipidemia, unspecified

== ENCOUNTER → 2022-05-05 | Outpatient (REF) | payer MEDICARE, BC, MEDICAID | LOC: SKLAB3 07:00 | PROVIDERS: ATTEND Nurse Practitioner Family | DX: Z12.5 Encounter for screening for malignant neoplasm of prostate (principal) | CPT/HCPCS: 36415; G0103 ==

== ENCOUNTER → 2022-09-01 | Outpatient (REF) | payer MEDICARE, BC, MEDICAID ==
[~2022-09-01] MED LIST changes: +CARB-113 PO; -CARB-89 PO
[2022-09-01 08:30] LABS: HEMATOCRIT 40.1 % (42.0-52.0); HEMOGLOBIN 12.2 g/dl (13.5-17.5); MEAN CORPUSCULAR HEMOGLOBIN 28.7 pg (27.0-33.0); MEAN CORPUSCULAR HGB CONC 30.4 g/dl (32.0-36.5); MEAN CORPUSCULAR VOLUME 94.4 fl (80.0-96.0); PLATELET COUNT, AUTOMATED 210 10^3/uL (150-450); RED BLOOD COUNT 4.25 10^6/uL (4.30-6.10); WHITE BLOOD COUNT 7.1 10^3/uL (4.0-10.0)
[2022-09-01 09:25] LABS: ALBUMIN 3.2 G/DL (3.2-5.2); ALKALINE PHOSPHATASE 79 U/L (46-116); ALT/SGPT < 9 U/L (7.0-40); AST/SGOT 19 U/L (<34); BILIRUBIN,TOTAL 0.7 MG/DL (0.3-1.2); BLOOD UREA NITROGEN 38 MG/DL (9-23); CALCIUM LEVEL 8.6 MG/DL (8.3-10.6); CARBON DIOXIDE LEVEL 30 MMOL/L (20-31); CHLORIDE LEVEL 101 MMOL/L (98-107); CHOLESTEROL LEVEL 114 MG/DL (<200); CHOLESTEROL RISK RATIO 2.78 (<5); CREATININE FOR GFR 1.86 MG/DL (0.70-1.30); GLUCOSE, FASTING 98 MG/DL (74-106); LDL CHOLESTEROL 57.4 MG/DL (<100); NON-HDL-C 73 MG/DL; POTASSIUM SERUM 4.6 MMOL/L (3.5-5.1); SODIUM LEVEL 138 MMOL/L (136-145); TOTAL PROTEIN 7.6 G/DL (5.7-8.2); TRIGLYCERIDES LEVEL 78 MG/DL (<150)
== END ==
LOC: SKLAB3 10:09
PROVIDERS: ATTEND Internal Medicine
DX: G20 Parkinson's disease (principal); E78.5 Hyperlipidemia, unspecified

== ENCOUNTER → 2022-09-11 | Outpatient (CLI) | payer MEDICARE, BC, MEDICAID | LOC: M PLAIMG 12:49 | PROVIDERS: ATTEND Physician Assistant | DX: S00.93XA Contusion of unspecified part of head, initial encounter (principal); G31.9 Degenerative disease of nervous system, unspecified; X58.XXXA Exposure to other specified factors, initial encounter; Y92.9 Unspecified place or not applicable; Y93.9 Activity, unspecified; Y99.9 Unspecified external cause status; R90.82 White matter disease, unspecified ==

== ENCOUNTER → 2022-11-25 | Outpatient (CLI) | payer MEDICARE, BC, MEDICAID ==
[~2022-11-25] MED LIST changes: -ATRO1OPD SL; +ATRO2DRO4 SL
== END ==
LOC: M SOG 08:01
PROVIDERS: ATTEND Orthopaedic Surgery
DX: Z96.641 Presence of right artificial hip joint (principal)

== ENCOUNTER → 2023-01-06 | Outpatient (REF) | payer MEDICARE, BC, MEDICAID ==
[2023-01-06 20:04] LABS: APPEARANCE, URINE HAZY (CLEAR); BACTERIA, URINE AUTO 1+ (NEGATIVE); BILIRUBIN, URINE AUTO NEGATIVE (NEGATIVE); BLOOD, URINE BLOOD 2+ (NEGATIVE); COLOR, URINE YELLOW (YELLOW); GLUCOSE, URINE (UA) AUTO NEGATIVE (NEGATIVE); KETONE, URINE AUTO NEGATIVE (NEGATIVE); LEUKOCYTE ESTERASE, URINE AUTO 3+ (NEGATIVE); NITRITE, URINE AUTO NEGATIVE (NEGATIVE); PROTEIN, URINE AUTO NEGATIVE (NEGATIVE); RBC, URINE AUTO 10 /HPF (0-3); SQUAMOUS EPITHELIAL CELL UR AU 1 /HPF (0-6); UROBILINOGEN, URINE AUTO 0.2 mg/dL (0.0-2.0); WBC, URINE AUTO 117 /HPF (0-3)
== END ==
LOC: SKLAB3 19:05
PROVIDERS: ATTEND Internal Medicine
DX: R29.6 Repeated falls (principal); Z79.899 Other long term (current) drug therapy

== ENCOUNTER → 2023-01-17 | Outpatient (REF) | payer MEDICARE, BC, MEDICAID ==
[2023-01-17 08:10] LABS: HEMATOCRIT 42.9 % (42.0-52.0); HEMOGLOBIN 13.3 g/dl (13.5-17.5); MEAN CORPUSCULAR HEMOGLOBIN 27.9 pg (27.0-33.0); MEAN CORPUSCULAR VOLUME 89.9 fl (80.0-96.0); PLATELET COUNT, AUTOMATED 247 10^3/uL (150-450); RED BLOOD COUNT 4.77 10^6/uL (4.30-6.10); WHITE BLOOD COUNT 10.3 10^3/uL (4.0-10.0)
[2023-01-17 08:32] LABS: ALBUMIN 3.6 G/DL (3.2-5.2); ALKALINE PHOSPHATASE 84 U/L (46-116); ALT/SGPT < 9 U/L (7.0-40); AST/SGOT 29 U/L (<34); BILIRUBIN,TOTAL 1.1 MG/DL (0.3-1.2); BLOOD UREA NITROGEN 29 MG/DL (9-23); CALCIUM LEVEL 8.7 MG/DL (8.3-10.6); CARBON DIOXIDE LEVEL 26 MMOL/L (20-31); CHLORIDE LEVEL 103 MMOL/L (98-107); CREATININE FOR GFR 1.91 MG/DL (0.70-1.30); GLOMERULAR FILTRATION RATE 35.9 (>35); GLUCOSE, FASTING 97 MG/DL (74-106); POTASSIUM SERUM 3.4 MMOL/L (3.5-5.1); SODIUM LEVEL 140 MMOL/L (136-145); TOTAL PROTEIN 8.5 G/DL (5.7-8.2)
[2023-01-17 09:39] LABS: APPEARANCE, URINE HAZY (CLEAR); BACTERIA, URINE AUTO NEGATIVE (NEGATIVE); BILIRUBIN, URINE AUTO NEGATIVE (NEGATIVE); BLOOD, URINE BLOOD 2+ (NEGATIVE); COLOR, URINE YELLOW (YELLOW); GLUCOSE, URINE (UA) AUTO NEGATIVE (NEGATIVE); KETONE, URINE AUTO NEGATIVE (NEGATIVE); LEUKOCYTE ESTERASE, URINE AUTO NEGATIVE (NEGATIVE); MUCUS, URINE SMALL (NEGATIVE); NITRITE, URINE AUTO NEGATIVE (NEGATIVE); PROTEIN, URINE AUTO 1+ mg/dL (NEGATIVE); RBC, URINE AUTO 16 /HPF (0-3); SPECIFIC GRAVITY URINE AUTO 1.013 (1.002-1.035); SQUAMOUS EPITHELIAL CELL UR AU 2 /HPF (0-6); UROBILINOGEN, URINE AUTO 0.2 mg/dL (0.0-2.0); WBC, URINE AUTO 3 /HPF (0-3)
== END ==
LOC: SKLAB3 07:00
PROVIDERS: ATTEND Internal Medicine
DX: R29.6 Repeated falls (principal); Z79.899 Other long term (current) drug therapy

== ENCOUNTER → 2023-02-23 | Outpatient (REF) | payer MEDICARE, BC, MEDICAID ==
[2023-02-23 08:38] LABS: HEMATOCRIT 38.5 % (42.0-52.0); MEAN CORPUSCULAR HEMOGLOBIN 28.4 pg (27.0-33.0); MEAN CORPUSCULAR HGB CONC 31.2 g/dl (32.0-36.5); MEAN CORPUSCULAR VOLUME 91.2 fl (80.0-96.0); PLATELET COUNT, AUTOMATED 263 10^3/uL (150-450); RED BLOOD COUNT 4.22 10^6/uL (4.30-6.10); WHITE BLOOD COUNT 5.3 10^3/uL (4.0-10.0)
[2023-02-23 09:33] LABS: ALBUMIN 3.2 G/DL (3.2-5.2); ALKALINE PHOSPHATASE 79 U/L (46-116); ALT/SGPT < 9 U/L (7.0-40); AST/SGOT 10 U/L (<34); BILIRUBIN,TOTAL 0.8 MG/DL (0.3-1.2); BLOOD UREA NITROGEN 28 MG/DL (9-23); CALCIUM LEVEL 8.9 MG/DL (8.3-10.6); CARBON DIOXIDE LEVEL 31 MMOL/L (20-31); CHLORIDE LEVEL 101 MMOL/L (98-107); CHOLESTEROL LEVEL 114 MG/DL (<200); CHOLESTEROL RISK RATIO 3.42 (<5); CREATININE FOR GFR 1.91 MG/DL (0.70-1.30); GLOMERULAR FILTRATION RATE 35.8 (>35); GLUCOSE, FASTING 83 MG/DL (74-106); HDL CHOLESTEROL 33.3 MG/DL (>40); LDL CHOLESTEROL 65.1 MG/DL (<100); NON-HDL-C 80.7 MG/DL; SODIUM LEVEL 141 MMOL/L (136-145); TOTAL PROTEIN 7.5 G/DL (5.7-8.2); TRIGLYCERIDES LEVEL 78 MG/DL (<150)
== END ==
LOC: SKLAB3 14:46
PROVIDERS: ATTEND Internal Medicine
DX: G20 Parkinson's disease (principal); Z79.899 Other long term (current) drug therapy

== ENCOUNTER → 2023-05-04 | Outpatient (CLI) | payer MEDICARE, BC, MEDICAID ==
[~2023-05-04] MED LIST changes: +ALEN70TA82 PO; +CELE10TA PO; +CIME300T91 PO; +FURO40TA2 PO; +GLUCAGON INJ 1MG VIAL As Ordered ONE; +HYOS0.1258 PO; +ISOVUE-300 61% 100ML VIAL As Ordered ONE; +LEVS0.123 SL; +LIDOCAINE 1% MDV 20ML VIAL As Ordered ONE; +LIDOCAINE W/EPINEPHRINE 1% 20ML VIAL As Ordered ONE; +MAG10ORA PO; +MAPA500C PO; +MIDAZOLAM INJ 2MG/2ML VIAL As Ordered ONE; +ONDANSETRON 4MG 2ML VIAL As Ordered ONE; +ROPI5TAB19 PO; +SENN1TAB41 PO; +fentaNYL 100 MCG/2 ML INJECTION As Ordered ONE
[2023-05-04 08:18] LABS: HEMATOCRIT 42.8 % (42.0-52.0); HEMOGLOBIN 13.2 g/dl (13.5-17.5); MEAN CORPUSCULAR HEMOGLOBIN 28.3 pg (27.0-33.0); MEAN CORPUSCULAR HGB CONC 30.8 g/dl (32.0-36.5); MEAN CORPUSCULAR VOLUME 91.8 fl (80.0-96.0); PLATELET COUNT, AUTOMATED 266 10^3/uL (150-450); RED BLOOD COUNT 4.66 10^6/uL (4.30-6.10); WHITE BLOOD COUNT 8.2 10^3/uL (4.0-10.0)
[2023-05-04 08:27] VITALS: TEMP 97.2
[2023-05-04 08:42] LABS: INR 1.27; PROTHROMBIN TIME 15.5 SECONDS (12.5-14.5)
[2023-05-04 10:55] VITALS: BP 178/89; O2SAT 96
== END ==
LOC: M IRPRO 07:34
PROVIDERS: ATTEND Internal Medicine
DX: R13.10 Dysphagia, unspecified (principal); Z79.899 Other long term (current) drug therapy
CPT/HCPCS: 49440; 85027; 85610; 99152; 99153; C1769; J2250; J3010; Q9967

== ENCOUNTER 2023-05-05 12:43 | Inpatient (IN) | payer MEDICARE, BC, MEDICAID ==
[~2023-05-05] VITALS: Ht 177.8 cm; Wt 95.0 kg
[~2023-05-05 12:43] MED LIST changes: +ACET1TAB55 PEG; -ACET1TAB55 PO; +ALEN70TA82 PEG; -ALEN70TA82 PO; +CARB-113 PEG; -CARB-113 PO; +CELE10TA PEG; -CELE10TA PO; -CIME300T91 PO; -FURO40TA2 PO; -GLUCAGON INJ 1MG VIAL As Ordered ONE; -ISOVUE-300 61% 100ML VIAL As Ordered ONE; -LEVS0.123 SL; -LIDOCAINE 1% MDV 20ML VIAL As Ordered ONE; -LIDOCAINE W/EPINEPHRINE 1% 20ML VIAL As Ordered ONE; +MAG10ORA PEG; -MAG10ORA PO; -MIDAZOLAM INJ 2MG/2ML VIAL As Ordered ONE; +NITR4TASL PEG; -NITR4TASL SL; -ONDANSETRON 4MG 2ML VIAL As Ordered ONE; +ROPI5TAB19 PEG; -ROPI5TAB19 PO; +ROSU10TA6 PEG; -ROSU10TA6 PO; +SENN1TAB41 PEG; -SENN1TAB41 PO; -fentaNYL 100 MCG/2 ML INJECTION As Ordered ONE
[2023-05-05 13:43] LABS: BASO # 0.1 10^3/uL (0.0-0.2); BASO % 0.4 % (0.0-1.0); EOS % 0.1 % (0.0-3.0); HEMATOCRIT 39.1 % (42.0-52.0); HEMOGLOBIN 12.4 g/dl (13.5-17.5); LYMPH # 0.4 10^3/uL (1.5-5.0); LYMPH % 2.5 % (24.0-44.0); MEAN CORPUSCULAR HGB CONC 31.7 g/dl (32.0-36.5); MEAN CORPUSCULAR VOLUME 91.4 fl (80.0-96.0); MONO # 0.8 10^3/uL (0.0-0.8); MONO % 5.1 % (2.0-8.0); PLATELET COUNT, AUTOMATED 241 10^3/uL (150-450); RED BLOOD COUNT 4.28 10^6/uL (4.30-6.10); WHITE BLOOD COUNT 16.4 10^3/uL (4.0-10.0)
[2023-05-05 14:00] LABS: ALBUMIN 2.7 G/DL (3.2-5.2); ALKALINE PHOSPHATASE 71 U/L (46-116); ALT/SGPT < 9 U/L (7.0-40); AST/SGOT 20 U/L (<34); BILIRUBIN,DIRECT 0.5 MG/DL (<0.4); BILIRUBIN,TOTAL 0.9 MG/DL (0.3-1.2); BLOOD UREA NITROGEN 31 MG/DL (9-23); CALCIUM LEVEL 8.5 MG/DL (8.3-10.6); CARBON DIOXIDE LEVEL 33 MMOL/L (20-31); CHLORIDE LEVEL 105 MMOL/L (98-107); CREATININE FOR GFR 1.79 MG/DL (0.70-1.30); GLOMERULAR FILTRATION RATE 38.6 (>35); GLUCOSE, FASTING 135 MG/DL (74-106); POTASSIUM SERUM 3.4 MMOL/L (3.5-5.1); SODIUM LEVEL 146 MMOL/L (136-145)
[2023-05-05 14:03] LABS: THYROID STIMULATING HORMONE 2.104 uIU/ML (0.55-4.78)
[2023-05-05] MEDS ORDERED: PIPERACILLIN/TAZOBACTAM SOD 4.5 GM in D5W MINI-BAG PLUS 50 ML IV ONE (14:10)
[2023-05-05 14:31] LABS: RSV AMPLIFICATION NEGATIVE (NEGATIVE)
[2023-05-05] MEDS ORDERED: PIPERACILLIN/TAZOBACTAM SOD 4.5 GM in D5W MINI-BAG PLUS 50 ML IV SCH (17:40)
[2023-05-05] MEDS ORDERED: MED REC IN PROGRESS XX SCH (17:50)
[2023-05-05 18:20] VITALS: O2SAT 100
[2023-05-05 18:29] LABS: ABG BASE EXCESS 2.4 (-2.0-2.0); ABG HCO3 26.6 MMOL/L (22.0-26.0); ABG O2 SATURATION 98.9 % (95.0-99.0); ABG PARTIAL PRESSURE CO2 40.1 mmHg (35.0-45.0); ABG PARTIAL PRESSURE O2 145.3 mmHg (75.0-100.0); ABG STANDARD HCO3 26.6 MMOL/L. (22.0-26.0); ABG TOTAL CO2 27.9 MMOL/L (23.0-31.0)
[2023-05-05 18:32] LABS: PROCALCITONIN 0.25 ng/ml
[2023-05-05 19:47] VITALS: BP 137/76; TEMP 98.2; O2SAT 93
[2023-05-05] MEDS ORDERED: LEVS0.123 PEG (19:58)
[2023-05-05] MEDS ORDERED: CIME300T91 PEG (19:58)
[2023-05-05] MEDS ORDERED: FURO40TA2 PEG (19:58)
[2023-05-05] MEDS ORDERED: HOME MED LIST COMPLETE! XX SCH (20:00)
[2023-05-05] MEDS ORDERED: POTASSIUM CHLORIDE IV SCH (20:00)
[2023-05-05] MEDS ORDERED: D10W IV SCH (20:00)
[2023-05-05] MEDS ORDERED: SODIUM CHLORIDE IV SCH (20:00)
[2023-05-05] MEDS ORDERED: KCL 40MEQ IN D5/0.45NS 1000ML 1,000 ML IV SCH (21:00)
[2023-05-05] MEDS: PIPERACILLIN/TAZOBACTAM SOD 3.375 GM in D5W MINI-BAG PLUS 50 ML IV SCH (21:26)
[2023-05-06] MEDS: PIPERACILLIN/TAZOBACTAM SOD 3.375 GM in D5W MINI-BAG PLUS 50 ML IV SCH ×2 (03:42→08:56)
[2023-05-06 05:33] VITALS: BP 107/52; TEMP 98.4; O2SAT 93
[2023-05-06 06:53] LABS: BASO % 0.4 % (0.0-1.0); EOS # 0.4 10^3/uL (0.0-0.5); EOS % 5.3 % (0.0-3.0); HEMOGLOBIN 11.6 g/dl (13.5-17.5); LYMPH # 0.5 10^3/uL (1.5-5.0); LYMPH % 6.2 % (24.0-44.0); MEAN CORPUSCULAR HEMOGLOBIN 29.1 pg (27.0-33.0); MEAN CORPUSCULAR HGB CONC 31.4 g/dl (32.0-36.5); MEAN CORPUSCULAR VOLUME 92.7 fl (80.0-96.0); MONO # 0.6 10^3/uL (0.0-0.8); MONO % 7.4 % (2.0-8.0); NEUTROPHILS # 6.4 10^3/uL (1.5-8.5); NEUTROPHILS % 80.2 % (36.0-66.0); PLATELET COUNT, AUTOMATED 217 10^3/uL (150-450); RED BLOOD COUNT 3.99 10^6/uL (4.30-6.10); WHITE BLOOD COUNT 7.9 10^3/uL (4.0-10.0)
[2023-05-06 07:15] LABS: CALCIUM LEVEL 8.4 MG/DL (8.3-10.6); CREATININE FOR GFR 1.71 MG/DL (0.70-1.30); GLOMERULAR FILTRATION RATE 40.7 (>35); POTASSIUM SERUM 3.3 MMOL/L (3.5-5.1)
[2023-05-06] MEDS: SINEMET 25-100 MG TAB GT SCH ×2 (08:59→12:26)
[2023-05-06] MEDS ORDERED: ASPIRIN 81MG CHEW TABLET GT SCH (09:00)
[2023-05-06] MEDS ORDERED: CitaloPRAM (CeleXA) 10 MG TABLET GT SCH (09:00)
[2023-05-06] MEDS ORDERED: rOPINIRole 0.25 MG TAB(REQUIP) GT SCH (09:00)
[2023-05-06] MEDS ORDERED: SENOKOT S TAB GT SCH (09:00)
[2023-05-06] MEDS ORDERED: POTASSIUM CHLORIDE 10% LIQ 20MEQ/15ML UDC PO ONE (09:00)
[2023-05-06] MEDS ORDERED: AMOX1SUS9 GT (11:33)
[2023-05-06] MEDS ORDERED: RIVAROXABAN 10MG TAB (XARELTO) PO SCH (18:00)
[2023-05-07] MEDS ORDERED: ROSUVASTATIN 10 MG TAB (CRESTOR) GT SCH (09:00)
== END 2023-05-06 12:40 | DRG 177 ==
LOC: M ED 12:43 → EDBD 12:43 → M ED INP 17:38 → M MSPAV 19:48
PROVIDERS: ADMIT Internal Medicine Nephrology; ATTEND Internal Medicine Nephrology
DX: J69.0 Pneumonitis due to inhalation of food and vomit (principal); G93.41 Metabolic encephalopathy; F03.918 Unspecified dementia, unspecified severity, with other behavioral disturbance; I48.20 Chronic atrial fibrillation, unspecified; E87.0 Hyperosmolality and hypernatremia; I67.82 Cerebral ischemia; I50.9 Heart failure, unspecified; G20.A1 Parkinson's disease without dyskinesia, without mention of fluctuations; I25.10 Atherosclerotic heart disease of native coronary artery without angina pectoris; R13.10 Dysphagia, unspecified; I73.9 Peripheral vascular disease, unspecified; I27.20 Pulmonary hypertension, unspecified; I35.0 Nonrheumatic aortic (valve) stenosis; N18.30 Chronic kidney disease, stage 3 unspecified; E78.5 Hyperlipidemia, unspecified; I87.2 Venous insufficiency (chronic) (peripheral); G25.81 Restless legs syndrome; M81.0 Age-related osteoporosis without current pathological fracture; Z96.641 Presence of right artificial hip joint; Z93.1 Gastrostomy status; Z86.73 Personal history of transient ischemic attack (TIA), and cerebral infarction without residual deficits; Z95.5 Presence of coronary angioplasty implant and graft; Z79.82 Long term (current) use of aspirin; Z79.899 Other long term (current) drug therapy; Z20.822 Contact with and (suspected) exposure to COVID-19; Z95.0 Presence of cardiac pacemaker

== ENCOUNTER 2023-05-09 21:43 | Inpatient (IN) | payer MEDICARE, BC, MEDICAID ==
[~2023-05-09] VITALS: Ht 180.3 cm; Wt 89.4 kg
[~2023-05-09 21:43] MED LIST changes: +AMOX1SUS9 GT; +CIME300T91 PEG; +FURO40TA2 PEG; +LEVS0.123 PEG
[2023-05-09 22:06] LABS: ABG BASE EXCESS -0.5 (-2.0-2.0); ABG HCO3 26.9 MMOL/L (22.0-26.0); ABG O2 SATURATION 98.4 % (95.0-99.0); ABG PARTIAL PRESSURE CO2 56.2 mmHg (35.0-45.0); ABG PARTIAL PRESSURE O2 136.9 mmHg (75.0-100.0); ABG STANDARD HCO3 24.1 MMOL/L. (22.0-26.0); ABG TOTAL CO2 28.6 MMOL/L (23.0-31.0); ABG pH (ARTERIAL) 7.298 UNITS (7.350-7.450)
[2023-05-09] MEDS ORDERED: IPRATROPIUM 0.5MG/ALBUTEROL 2.5MG INH SOL UD 3ML (DUONEB) NEB ONE (22:10)
[2023-05-09 22:18] LABS: BASO # 0.1 10^3/uL (0.0-0.2); BASO % 0.3 % (0.0-1.0); EOS # 0.5 10^3/uL (0.0-0.5); EOS % 2.5 % (0.0-3.0); HEMATOCRIT 42.5 % (42.0-52.0); LYMPH # 0.9 10^3/uL (1.5-5.0); LYMPH % 4.9 % (24.0-44.0); MEAN CORPUSCULAR HEMOGLOBIN 28.4 pg (27.0-33.0); MEAN CORPUSCULAR HGB CONC 30.6 g/dl (32.0-36.5); MEAN CORPUSCULAR VOLUME 92.8 fl (80.0-96.0); MONO % 5.2 % (2.0-8.0); NEUTROPHILS # 16.6 10^3/uL (1.5-8.5); NEUTROPHILS % 86.3 % (36.0-66.0); PLATELET COUNT, AUTOMATED 283 10^3/uL (150-450); RED BLOOD COUNT 4.58 10^6/uL (4.30-6.10); WHITE BLOOD COUNT 19.2 10^3/uL (4.0-10.0)
[2023-05-09 22:30] LABS: INR 1.3; PROTHROMBIN TIME 15.8 SECONDS (12.5-14.5)
[2023-05-09 22:37] LABS: ALBUMIN 2.7 G/DL (3.2-5.2); ALKALINE PHOSPHATASE 72 U/L (46-116); ALT/SGPT 10 U/L (7.0-40); AST/SGOT 34 U/L (<34); BILIRUBIN,DIRECT 0.4 MG/DL (<0.4); BILIRUBIN,TOTAL 0.8 MG/DL (0.3-1.2); BLOOD UREA NITROGEN 38 MG/DL (9-23); CALCIUM LEVEL 7.7 MG/DL (8.3-10.6); CARBON DIOXIDE LEVEL 31 MMOL/L (20-31); CHLORIDE LEVEL 101 MMOL/L (98-107); CK-MB VALUE MASS < 1.0 NG/ML (<3.6); CPK CREATINE PHOSPHOKINASE 68 U/L (46-171); GLOMERULAR FILTRATION RATE 47.4 (>35); GLUCOSE, FASTING 227 MG/DL (74-106); MB/CK RELATIVE INDEX 1.47 (< OR =4); POTASSIUM SERUM 4.1 MMOL/L (3.5-5.1); SODIUM LEVEL 141 MMOL/L (136-145); TOTAL PROTEIN 7.4 G/DL (5.7-8.2)
[2023-05-09 22:40] LABS: THYROID STIMULATING HORMONE 6.727 uIU/ML (0.55-4.78)
[2023-05-09] MEDS ORDERED: PIPERACILLIN/TAZOBACTAM SOD 3.375 GM in D5W MINI-BAG PLUS 50 ML IV ONE (23:00)
[2023-05-09] MEDS ORDERED: NS 2,520 ML in IV 1 EA IV ONE (23:00)
[2023-05-09 23:55] LABS: CK-MB VALUE MASS < 1.0 NG/ML (<3.6)
[2023-05-09 23:57] LABS: CPK CREATINE PHOSPHOKINASE 78 U/L (46-171); MB/CK RELATIVE INDEX 1.28 (< OR =4)
[2023-05-10] VITALS (73 sets, daily range): BP systolic 71–134; BP diastolic 50–85; TEMP 97.1–98.4; O2SAT 92–100
[2023-05-10 00:38] LABS: ABG BASE EXCESS -1.4 (-2.0-2.0); ABG HCO3 25.1 MMOL/L (22.0-26.0); ABG O2 SATURATION 99.1 % (95.0-99.0); ABG PARTIAL PRESSURE CO2 49.7 mmHg (35.0-45.0); ABG PARTIAL PRESSURE O2 152.4 mmHg (75.0-100.0); ABG STANDARD HCO3 23.3 MMOL/L. (22.0-26.0); ABG TOTAL CO2 26.7 MMOL/L (23.0-31.0); ABG pH (ARTERIAL) 7.322 UNITS (7.350-7.450)
[2023-05-10] MEDS ORDERED: ASPI81TA26 PEG (00:41)
[2023-05-10] MEDS ORDERED: JEVILIQ12 PEG (00:41)
[2023-05-10] MEDS ORDERED: AUGM250S13 PEG (00:41)
[2023-05-10] MEDS ORDERED: SODIUM CHLORIDE 0.9% 1000ML IV SCH (00:45)
[2023-05-10] MEDS ORDERED: ALBUTEROL SULFATE 2.5MG/0.5ML INH NEB SOLN NEB PRN (00:45)
[2023-05-10] MEDS ORDERED: VANCOMYCIN HCL 1,250 MG in IV FLUID PLACE HOLDER 1 EA IV ONE (00:45)
[2023-05-10] MEDS ORDERED: GLUCAGON INJ 1MG VIAL SC PRN (00:45)
[2023-05-10] MEDS ORDERED: GLUCOSE 4GM CHEW TABLET PO PRN (00:45)
[2023-05-10] MEDS ORDERED: ACETAMINOPHEN TAB 650MG DOSE (2X325MG) PEG PRN (00:45)
[2023-05-10] MEDS ORDERED: DEXTROSE 50% 50ML SYRINGE IV PRN (00:45)
[2023-05-10] MEDS ORDERED: MAG30ORA10 PEG (00:50)
[2023-05-10] MEDS ORDERED: HOME MED LIST COMPLETE! XX SCH (00:55)
[2023-05-10] MEDS: INSULIN LISPRO (NovoLOG) PER UNIT SC SCH ×4 (01:39→17:05)
[2023-05-10] MEDS ORDERED: VANCOMYCIN HCL 750 MG, VIAL MATE ADAPTER 1 EACH in D5W 250 ML IV ONE ×2 (02:00→03:00)
[2023-05-10] MEDS ORDERED: propofoL 200 MG/20 ML VIAL IV ONE (03:09)
[2023-05-10] MEDS ORDERED: ETOMIDATE INJ 20MG/10ML VIAL IV STA ×2 (03:09)
[2023-05-10] MEDS ORDERED: SUCCINYLCHOLINE INJ 200MG/10ML VIAL IV STA (03:10)
[2023-05-10] MEDS ORDERED: ROCURONIUM BROMIDE 50MG/5ML VIAL IV SCH (03:15)
[2023-05-10] MEDS ORDERED: PROPOFOL 1,000 MG/100 ML VIAL As Ordered ONE (03:16)
[2023-05-10] MEDS ORDERED: NS 1,000 ML IV ONE ×3 (03:30→12:50)
[2023-05-10 04:59] LABS: CALCIUM LEVEL 6.9 MG/DL (8.3-10.6); CREATININE FOR GFR 1.43 MG/DL (0.70-1.30); MAGNESIUM LEVEL 1.6 MG/DL (1.8-2.4); POTASSIUM SERUM 3.9 MMOL/L (3.5-5.1)
[2023-05-10] MEDS ORDERED: PIPERACILLIN/TAZOBACTAM SOD 3.375 GM in D5W MINI-BAG PLUS 50 ML IV SCH (05:00)
[2023-05-10 05:28] LABS: ABG BASE EXCESS -4.6 (-2.0-2.0); ABG HCO3 22.2 MMOL/L (22.0-26.0); ABG O2 SATURATION 95.7 % (95.0-99.0); ABG PARTIAL PRESSURE CO2 48.1 mmHg (35.0-45.0); ABG PARTIAL PRESSURE O2 87.6 mmHg (75.0-100.0); ABG STANDARD HCO3 20.6 MMOL/L. (22.0-26.0); ABG TOTAL CO2 23.7 MMOL/L (23.0-31.0); ABG pH (ARTERIAL) 7.282 UNITS (7.350-7.450)
[2023-05-10] MEDS: propofoL 1,000 MG in IV 1 EA IV SCH ×3 (05:41→16:42)
[2023-05-10] MEDS: IPRATROPIUM 0.5MG/ALBUTEROL 2.5MG INH SOL UD 3ML (DUONEB) NEB SCH ×4 (07:24→19:27)
[2023-05-10] MEDS ORDERED: MIDAZOLAM INJ 2MG/2ML VIAL IV ONE (08:00)
[2023-05-10] MEDS ORDERED: HEPARIN SOD (PORCINE) 5000UNITS/ML 1ML VIAL/SYRINGE SC SCH (09:00)
[2023-05-10] MEDS ORDERED: rOPINIRole 0.25 MG TAB(REQUIP) PEG SCH (09:00)
[2023-05-10] MEDS ORDERED: CitaloPRAM (CeleXA) 10 MG TABLET PEG SCH (09:00)
[2023-05-10] MEDS: SINEMET 25-100 MG TAB PEG SCH ×4 (09:27→20:06)
[2023-05-10] MEDS: MIDAZOLAM 100MG/100ML-0.9%NACL 100 MG in IV 1 EA IV SCH ×2 (09:27→21:25)
[2023-05-10] MEDS: PANTOPRAZOLE 40MG VIAL IV SCH (09:27)
[2023-05-10] MEDS: HEPARIN SOD (PORCINE) 5000UNITS/ML 1ML VIAL/SYRINGE SQ SCH ×3 (09:28→22:33)
[2023-05-10] MEDS ORDERED: MAG SULF 1GM/100ML (MAG RUN) 1 GM in IV 1 EA IV ONE (09:30)
[2023-05-10] MEDS: PIPERACILLIN/TAZOBACTAM SOD 4.5 GM in D5W MINI-BAG PLUS 50 ML IV SCH ×2 (12:29→17:00)
[2023-05-10] MEDS: MIDAZOLAM INJ 2MG/2ML VIAL IV PRN ×3 (12:32→21:40)
[2023-05-10] MEDS ORDERED: VANCOMYCIN HCL 1,000 MG, VIAL MATE ADAPTER 1 EACH in D5W 250 ML IV SCH (14:00)
[2023-05-10] MEDS: MORPHINE 2 MG/ML 1ML VIAL IV PRN (22:20)
[2023-05-11] VITALS (42 sets, daily range): BP systolic 91–131; BP diastolic 54–81; TEMP 97.5–98; O2SAT 96–99
[2023-05-11] MEDS: PIPERACILLIN/TAZOBACTAM SOD 4.5 GM in D5W MINI-BAG PLUS 50 ML IV SCH ×4 (01:32→18:09)
[2023-05-11] MEDS: MIDAZOLAM INJ 2MG/2ML VIAL IV PRN ×3 (01:32→05:15)
[2023-05-11] MEDS: MORPHINE 2 MG/ML 1ML VIAL IV PRN ×2 (01:33→05:16)
[2023-05-11 04:37] LABS: BASO % 0.4 % (0.0-1.0); EOS # 0.4 10^3/uL (0.0-0.5); EOS % 5.6 % (0.0-3.0); LYMPH # 0.3 10^3/uL (1.5-5.0); LYMPH % 4.6 % (24.0-44.0); MEAN CORPUSCULAR HEMOGLOBIN 28.4 pg (27.0-33.0); MEAN CORPUSCULAR VOLUME 91.7 fl (80.0-96.0); MONO # 0.4 10^3/uL (0.0-0.8); MONO % 6.2 % (2.0-8.0); NEUTROPHILS # 5.6 10^3/uL (1.5-8.5); NEUTROPHILS % 82.5 % (36.0-66.0); PLATELET COUNT, AUTOMATED 178 10^3/uL (150-450); RED BLOOD COUNT 3.27 10^6/uL (4.30-6.10); WHITE BLOOD COUNT 6.8 10^3/uL (4.0-10.0)
[2023-05-11 04:50] LABS: ALBUMIN 1.7 G/DL (3.2-5.2); CALCIUM LEVEL 6.9 MG/DL (8.3-10.6); CREATININE FOR GFR 1.4 MG/DL (0.70-1.30); GLOMERULAR FILTRATION RATE 51.3 (>35); HEMOGLOBIN 9.3 g/dl (13.5-17.5); PHOSPHORUS LEVEL 2.8 MG/DL (2.4-5.1)
[2023-05-11] MEDS: propofoL 1,000 MG in IV 1 EA IV SCH (05:00)
[2023-05-11] MEDS: HEPARIN SOD (PORCINE) 5000UNITS/ML 1ML VIAL/SYRINGE SQ SCH ×3 (05:16→21:50)
[2023-05-11] MEDS: INSULIN LISPRO (NovoLOG) PER UNIT SC SCH ×2 (05:17)
[2023-05-11 05:45] LABS: ABG BASE EXCESS 1.8 (-2.0-2.0); ABG HCO3 26.6 MMOL/L (22.0-26.0); ABG O2 SATURATION 98.7 % (95.0-99.0); ABG PARTIAL PRESSURE CO2 42.4 mmHg (35.0-45.0); ABG PARTIAL PRESSURE O2 121.1 mmHg (75.0-100.0); ABG STANDARD HCO3 26.1 MMOL/L. (22.0-26.0); ABG TOTAL CO2 27.9 MMOL/L (23.0-31.0); ABG pH (ARTERIAL) 7.415 UNITS (7.350-7.450)
[2023-05-11] MEDS: IPRATROPIUM 0.5MG/ALBUTEROL 2.5MG INH SOL UD 3ML (DUONEB) NEB SCH ×4 (07:24→20:15)
[2023-05-11] MEDS: PANTOPRAZOLE 40MG VIAL IV SCH (08:38)
[2023-05-11] MEDS: SINEMET 25-100 MG TAB PEG SCH ×4 (08:38→20:45)
[2023-05-12] VITALS (30 sets, daily range): BP systolic 108–152; BP diastolic 58–75; TEMP 97.5–97.8; O2SAT 94–100
[2023-05-12] MEDS: PIPERACILLIN/TAZOBACTAM SOD 4.5 GM in D5W MINI-BAG PLUS 50 ML IV SCH ×4 (00:35→18:08)
[2023-05-12 04:27] LABS: BASO % 0.5 % (0.0-1.0); EOS # 0.5 10^3/uL (0.0-0.5); EOS % 8.3 % (0.0-3.0); HEMATOCRIT 30.7 % (42.0-52.0); HEMOGLOBIN 9.5 g/dl (13.5-17.5); LYMPH # 0.3 10^3/uL (1.5-5.0); LYMPH % 5.3 % (24.0-44.0); MEAN CORPUSCULAR HEMOGLOBIN 28.4 pg (27.0-33.0); MEAN CORPUSCULAR HGB CONC 30.9 g/dl (32.0-36.5); MEAN CORPUSCULAR VOLUME 91.6 fl (80.0-96.0); MONO # 0.4 10^3/uL (0.0-0.8); MONO % 6.8 % (2.0-8.0); NEUTROPHILS # 4.9 10^3/uL (1.5-8.5); NEUTROPHILS % 78.3 % (36.0-66.0); PLATELET COUNT, AUTOMATED 182 10^3/uL (150-450); RED BLOOD COUNT 3.35 10^6/uL (4.30-6.10); WHITE BLOOD COUNT 6.3 10^3/uL (4.0-10.0)
[2023-05-12 04:44] LABS: ALBUMIN 1.8 G/DL (3.2-5.2); CALCIUM LEVEL 7.4 MG/DL (8.3-10.6); CREATININE FOR GFR 1.43 MG/DL (0.70-1.30); PHOSPHORUS LEVEL 2.9 MG/DL (2.4-5.1); POTASSIUM SERUM 4.1 MMOL/L (3.5-5.1)
[2023-05-12] MEDS: HEPARIN SOD (PORCINE) 5000UNITS/ML 1ML VIAL/SYRINGE SQ SCH ×3 (05:14→22:09)
[2023-05-12 05:36] LABS: ABG BASE EXCESS -1.9 (-2.0-2.0); ABG HCO3 22.1 MMOL/L (22.0-26.0); ABG PARTIAL PRESSURE CO2 34.7 mmHg (35.0-45.0); ABG PARTIAL PRESSURE O2 173.3 mmHg (75.0-100.0); ABG STANDARD HCO3 22.9 MMOL/L. (22.0-26.0); ABG TOTAL CO2 23.1 MMOL/L (23.0-31.0); ABG pH (ARTERIAL) 7.421 UNITS (7.350-7.450)
[2023-05-12] MEDS: IPRATROPIUM 0.5MG/ALBUTEROL 2.5MG INH SOL UD 3ML (DUONEB) NEB SCH ×4 (07:29→20:35)
[2023-05-12] MEDS: SINEMET 25-100 MG TAB PEG SCH ×4 (08:06→20:06)
[2023-05-12] MEDS: PANTOPRAZOLE 40MG VIAL IV SCH (08:06)
[2023-05-12] MEDS: METOPROLOL TART 12.5 MG PER 1/2 TAB PO SCH ×3 (08:36→18:08)
[2023-05-12] MEDS: MIDAZOLAM INJ 2MG/2ML VIAL IV PRN (21:56)
[2023-05-12] MEDS: MORPHINE 2 MG/ML 1ML VIAL IV PRN (21:56)
[2023-05-13] VITALS (23 sets, daily range): BP systolic 103–133; BP diastolic 53–69; TEMP 97.9–98; O2SAT 98–99
[2023-05-13] MEDS: PIPERACILLIN/TAZOBACTAM SOD 4.5 GM in D5W MINI-BAG PLUS 50 ML IV SCH ×2 (00:02→06:07)
[2023-05-13] MEDS: METOPROLOL TART 12.5 MG PER 1/2 TAB PO SCH ×2 (00:02→05:41)
[2023-05-13] MEDS: MIDAZOLAM INJ 2MG/2ML VIAL IV PRN ×3 (00:09→05:50)
[2023-05-13] MEDS: MORPHINE 2 MG/ML 1ML VIAL IV PRN ×2 (02:23→06:22)
[2023-05-13 05:22] LABS: BASO % 0.3 % (0.0-1.0); EOS # 0.5 10^3/uL (0.0-0.5); EOS % 7.6 % (0.0-3.0); HEMATOCRIT 30.6 % (42.0-52.0); HEMOGLOBIN 9.6 g/dl (13.5-17.5); LYMPH # 0.3 10^3/uL (1.5-5.0); LYMPH % 5.1 % (24.0-44.0); MEAN CORPUSCULAR HEMOGLOBIN 28.7 pg (27.0-33.0); MEAN CORPUSCULAR HGB CONC 31.4 g/dl (32.0-36.5); MEAN CORPUSCULAR VOLUME 91.6 fl (80.0-96.0); MONO # 0.4 10^3/uL (0.0-0.8); MONO % 7.3 % (2.0-8.0); NEUTROPHILS # 4.7 10^3/uL (1.5-8.5); NEUTROPHILS % 78.7 % (36.0-66.0); PLATELET COUNT, AUTOMATED 203 10^3/uL (150-450); RED BLOOD COUNT 3.34 10^6/uL (4.30-6.10)
[2023-05-13] MEDS: HEPARIN SOD (PORCINE) 5000UNITS/ML 1ML VIAL/SYRINGE SQ SCH (05:41)
[2023-05-13 05:48] LABS: ALBUMIN 1.7 G/DL (3.2-5.2); CALCIUM LEVEL 7.7 MG/DL (8.3-10.6); CREATININE FOR GFR 1.42 MG/DL (0.70-1.30); GLOMERULAR FILTRATION RATE 50.4 (>35); PHOSPHORUS LEVEL 2.9 MG/DL (2.4-5.1); POTASSIUM SERUM 3.8 MMOL/L (3.5-5.1)
[2023-05-13 05:54] LABS: ABG BASE EXCESS -1.4 (-2.0-2.0); ABG HCO3 23.1 MMOL/L (22.0-26.0); ABG PARTIAL PRESSURE CO2 37.8 mmHg (35.0-45.0); ABG PARTIAL PRESSURE O2 175.9 mmHg (75.0-100.0); ABG STANDARD HCO3 23.3 MMOL/L. (22.0-26.0); ABG TOTAL CO2 24.3 MMOL/L (23.0-31.0); ABG pH (ARTERIAL) 7.404 UNITS (7.350-7.450)
[2023-05-13] MEDS: IPRATROPIUM 0.5MG/ALBUTEROL 2.5MG INH SOL UD 3ML (DUONEB) NEB SCH ×2 (07:39→11:24)
[2023-05-13] MEDS: SINEMET 25-100 MG TAB PEG SCH (08:30)
[2023-05-13] MEDS: PANTOPRAZOLE 40MG VIAL IV SCH (08:31)
[2023-05-13] MEDS ORDERED: HYOS125TA PO (16:11)
[2023-05-13] MEDS ORDERED: MORP1SOL5 PO (16:11)
[2023-05-13] MEDS ORDERED: TRAN1DIS4 TOP (16:13)
[2023-05-13] MEDS ORDERED: SCOPOLAMINE 1MG TRANSDERMAL PATCH TOP SCH (20:00)
== END 2023-05-14 09:58 | DRG 871 ==
LOC: M ED 21:43 → EDBD 21:43 → M ED INP 05-10 00:41 → M ICU 05-10 02:00
PROVIDERS: ADMIT Internal Medicine; ATTEND General Practice
PROC: 0BH17EZ Insertion of Endotracheal Airway into Trachea, Via Natural or Artificial Opening (ICD-10-PCS; principal; 2023-05-10)
PROC: 5A1945Z Respiratory Ventilation, 24-96 Consecutive Hours (ICD-10-PCS; 2023-05-10)
DX: A41.9 Sepsis, unspecified organism (principal); J69.0 Pneumonitis due to inhalation of food and vomit; J96.01 Acute respiratory failure with hypoxia; G93.41 Metabolic encephalopathy; I48.20 Chronic atrial fibrillation, unspecified; E46 Unspecified protein-calorie malnutrition; Z66 Do not resuscitate; R65.20 Severe sepsis without septic shock; Z93.1 Gastrostomy status; G20.C Parkinsonism, unspecified; E83.42 Hypomagnesemia; J45.909 Unspecified asthma, uncomplicated; R13.10 Dysphagia, unspecified; N18.30 Chronic kidney disease, stage 3 unspecified; D63.1 Anemia in chronic kidney disease; F03.90 Unspecified dementia, unspecified severity, without behavioral disturbance, psychotic disturbance, mood disturbance, and anxiety; I35.0 Nonrheumatic aortic (valve) stenosis; I27.20 Pulmonary hypertension, unspecified; I25.10 Atherosclerotic heart disease of native coronary artery without angina pectoris; I73.9 Peripheral vascular disease, unspecified; G25.81 Restless legs syndrome; Z96.641 Presence of right artificial hip joint; Z79.2 Long term (current) use of antibiotics; Z79.82 Long term (current) use of aspirin; Z79.899 Other long term (current) drug therapy; Z20.822 Contact with and (suspected) exposure to COVID-19; Z95.818 Presence of other cardiac implants and grafts